=== PATIENT | female | born 1990 | race Caucasian/White ===

== ENCOUNTER → 2018-11-28 09:52 | Outpatient (CLI) | payer OTHER, SELFPAY ==
[2018-11-21 08:47] VITALS: BMI 24.8
[2018-11-28 10:28] LABS: Cholesterol 170 mg/dL (200); High Density Lipoprotein 64 mg/dL; Triglycerides 51 mg/dL; Very Low Density Lipoprotein 10 mg/dL (5-40)
[2018-11-28 10:50] LABS: Progesterone Level 23.75 ng/mL (See Comment)
== END ==
PROVIDERS: Referring Provider Obstetrics & Gynecology; Visit Provider Obstetrics & Gynecology
DX: N97.9 Female infertility, unspecified (principal); Z13.220 Encounter for screening for lipoid disorders
CPT/HCPCS: 36415; 80061; 84144

== ENCOUNTER → 2018-12-17 14:41 | Outpatient (CLI) | payer OTHER, SELFPAY ==
[2018-11-21 08:47] VITALS: BMI 24.8
--- NOTE | 2018-12-17 15:00 | RAD_ITS ---
STUDY: HYSTEROSALPINGOGRAM. REASON FOR EXAM: Female, 28 years old. Infertility. TECHNIQUE: A hysterosalpingogram was performed by the gynecology. Imaging was obtained. 3 images were obtained. COMPARISON: None. FINDINGS: There is visualization of the right horn of the uterus. The left horn is not visualized. The right fallopian tube is patent with spill. RAD/Salpingogram IMPRESSION: Patency of the right fallopian tube. Only the right horn of the uterus was opacified. Electronically Signed: David Davidson, at 15:45 EST , Service support ,
--- NOTE | 2018-12-22 22:30 | OP.PCM_ITS ---
Problem List (1) PCOS (polycystic ovarian syndrome) Status: Acute Comment: information and counseling reviewed, recommend lipid panel. nl insulin and glucose fasting. recommend day 21 progesterone and try femara next cycle if no conception. provera withdrawl PRN for menses. 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 Speculum was placed in the vagina and the cervix prepped with Betadine and the HSG catheter was easily introduced into the uterus and speculum removed. Radiologist was brought in and while pushing radiopaque dye into the uterus via the HSG catheter the radiologist took multiple images and views and confirmed right tubal patency seen. see findings for specific defects seen. All instruments removed from the vagina and the uterus without complication. Patient tolerated the procedure well. in comparison with the ultrasound there are bilateral ovaries presents so possible uterine cavity abnormality suspected. immediate referral to RGI recommended - Admit VTE Documentation VTE Present on Admission: No Multi Select Codes - Urinary/Genital Urinary/Genital CPT Codes: 03588 HSG/SIS
== END ==
PROVIDERS: Referring Provider Obstetrics & Gynecology; Visit Provider Obstetrics & Gynecology
DX: N97.9 Female infertility, unspecified (principal)
CPT/HCPCS: 58340; 74740; Q9965

== ENCOUNTER → 2019-01-02 14:50 | Outpatient (CLI) | payer OTHER, SELFPAY ==
[2018-11-21 08:47] VITALS: BMI 24.8
--- NOTE | 2019-01-02 14:52 | US_ITS ---
STUDY: RENAL ULTRASOUND - COMPLETE REASON FOR EXAM: Female, 28 years old. Evaluate for anatomic abnormality. TECHNIQUE: Ultrasound evaluation of the kidneys was performed with real-time and static heart-scale imaging. COMPARISON: None. FINDINGS: Aorta: Visualized portions of abdominal aorta are normal in diameter. IVC: Visualized portions appear patent. Right kidney: Measures 9.0 cm. Normal contour. Renal cortical thickness appears normal. No cysts. No masses, or hydronephrosis identified. A hyperechoic 2 mm focus may represent a small nonobstructing stone. Left kidney: Measures 9.0 cm. Normal contour. Renal cortical thickness appears normal. No cysts. No masses, stones, or hydronephrosis identified. Bladder: No intrinsic masses, stones, or abnormal dilatation noted. US/Kidney and Bladder IMPRESSION: Possible small nonobstructing right renal stone. Renal ultrasound is otherwise within normal limits. Electronically Signed: Dragan Montelongo, at 19:25 EST Tel , Service support ,
== END ==
PROVIDERS: Referring Provider Obstetrics & Gynecology Reproductive Endocrinology; Visit Provider Obstetrics & Gynecology Reproductive Endocrinology
DX: Q51.4 Unicornate uterus (principal)
CPT/HCPCS: 76770

== ENCOUNTER → 2019-10-06 | Outpatient (CLI) | payer OTHER, SELFPAY ==
[2018-11-21 08:47] VITALS: BMI 24.8
[2019-10-06 08:54] LABS: Estradiol 310.7 pg/mL
[2019-10-06 08:56] LABS: Progesterone Level 56.71 ng/mL (See Comment)
== END | disposition home or self-care (01) ==
LOC: PAVLAB 08:24
PROVIDERS: Referring Provider Obstetrics & Gynecology; Visit Provider Obstetrics & Gynecology
DX: E28.9 Ovarian dysfunction, unspecified (principal)
CPT/HCPCS: 36415; 82670; 84144

== ENCOUNTER → 2019-10-10 | Outpatient (CLI) | payer OTHER, SELFPAY ==
[2018-11-21 08:47] VITALS: BMI 24.8
[2019-10-10 08:54] LABS: hCG Titer Quant., Serum 35 mIU/mL (1-3)
[2019-10-10 09:29] LABS: Progesterone Level 39.79 ng/mL (See Comment)
== END | disposition home or self-care (01) ==
LOC: PAVLAB 08:21
PROVIDERS: Referring Provider Obstetrics & Gynecology; Visit Provider Obstetrics & Gynecology
DX: Z32.00 Encounter for pregnancy test, result unknown (principal)
CPT/HCPCS: 36415; 84144; 84702

== ENCOUNTER → 2019-10-13 | Outpatient (CLI) | payer OTHER, SELFPAY ==
[2018-11-21 08:47] VITALS: BMI 24.8
[2019-10-13 09:40] LABS: hCG Titer Quant., Serum 30 mIU/mL (1-3)
[2019-10-13 09:46] LABS: Progesterone Level 53.74 ng/mL (See Comment)
== END | disposition home or self-care (01) ==
LOC: PAVLAB 08:23
PROVIDERS: Referring Provider Obstetrics & Gynecology; Visit Provider Obstetrics & Gynecology
DX: Z32.00 Encounter for pregnancy test, result unknown (principal)
CPT/HCPCS: 36415; 84144; 84702

== ENCOUNTER → 2019-10-22 | Outpatient (CLI) | payer OTHER, SELFPAY ==
[2018-11-21 08:47] VITALS: BMI 24.8
--- NOTE | 2019-10-22 10:54 | US_ITS ---
STUDY: ULTRASOUND OF THE FEMALE PELVIS - COMPLETE REASON FOR EXAM: Female, 29 years old. Ovarian dysfunction- patient is currently doing IVF LMP: 10/18/2019. TECHNIQUE: Transabdominal and Transvaginal TECHNICAL QUALITY: Adequate. COMPARISON: None. FINDINGS: The uterus is retroverted and is in a midline position. The uterus measures 6.3 cm x 4.7 cm x 3.4 cm. Normal uterine cervix. The endometrium measures 5.0 mm in thickness, and is fluid distended. There is no demonstrated endometrial mass. There is no demonstrated myometrial mass. I.U.D. - The patient does not have an I.U.D. The right ovary is visualized. The right ovary measures 4.4 cm x 2.4 cm x 2.1 cm. Multiple small follicles are seen. There is no visualized right adnexal mass or complex lesion. There is normal arterial and normal venous vascularity. The left ovary is visualized. The left ovary measures 4.3 cm x 2.5 cm x 2.2 cm. There is no left ovarian cyst or ovarian mass. There is no visualized left adnexal mass or complex lesion. There is normal arterial and normal venous vascularity. There is no fluid in the cul-de-sac. The pre void volume of the bladder was 272 ml. Polycystic ovary disease: No. US/Transvaginal Non- IMPRESSION: Small amount of the fundal endometrial fluid. Multiple small follicles in the right ovary. Electronically Signed: David Davidson, at 13:05 EDT , Service support ,
--- NOTE | 2019-10-22 10:54 | US_ITS ---
STUDY: ULTRASOUND OF THE FEMALE PELVIS - COMPLETE REASON FOR EXAM: Female, 29 years old. Ovarian dysfunction- patient is currently doing IVF LMP: 10/18/2019. TECHNIQUE: Transabdominal and Transvaginal TECHNICAL QUALITY: Adequate. COMPARISON: None. FINDINGS: The uterus is retroverted and is in a midline position. The uterus measures 6.3 cm x 4.7 cm x 3.4 cm. Normal uterine cervix. The endometrium measures 5.0 mm in thickness, and is fluid distended. There is no demonstrated endometrial mass. There is no demonstrated myometrial mass. I.U.D. - The patient does not have an I.U.D. The right ovary is visualized. The right ovary measures 4.4 cm x 2.4 cm x 2.1 cm. Multiple small follicles are seen. There is no visualized right adnexal mass or complex lesion. There is normal arterial and normal venous vascularity. The left ovary is visualized. The left ovary measures 4.3 cm x 2.5 cm x 2.2 cm. There is no left ovarian cyst or ovarian mass. There is no visualized left adnexal mass or complex lesion. There is normal arterial and normal venous vascularity. There is no fluid in the cul-de-sac. The pre void volume of the bladder was 272 ml. Polycystic ovary disease: No. US/Pelvic (Non ) IMPRESSION: Small amount of the fundal endometrial fluid. Multiple small follicles in the right ovary. Electronically Signed: David Davidson, at 13:05 EDT , Service support ,
[2019-10-22 12:38] LABS: Progesterone Level 0.28 ng/mL (See Comment)
[2019-10-22 12:45] LABS: hCG Titer Quant., Serum < 1 mIU/mL (1-3)
[2019-10-22 12:49] LABS: Estradiol 75.2 pg/mL; Follicle Stimulating Hormone 5.9 mIU/mL; Luteinizing Hormone 7.8 mIU/mL; Thyroid Stim Hormone (TSH) 0.94 uIU/mL (0.358-3.74)
== END | disposition home or self-care (01) ==
PROVIDERS: Referring Provider Obstetrics & Gynecology; Visit Provider Obstetrics & Gynecology
DX: E28.9 Ovarian dysfunction, unspecified (principal); Z31.9 Encounter for procreative management, unspecified
CPT/HCPCS: 36415; 76830; 76856; 82670; 83001; 83002; 84144; 84443; 84702

== ENCOUNTER → 2019-10-27 | Outpatient (CLI) | payer OTHER, SELFPAY ==
[2018-11-21 08:47] VITALS: BMI 24.8
--- NOTE | 2019-10-27 09:35 | US_ITS ---
STUDY: ULTRASOUND OF THE FEMALE PELVIS - COMPLETE REASON FOR EXAM: Female, 29 years old. OVARIAN DYSFUNCTION, PATIENT CURRENTLY UNDER GOING IVF LMP: 10/18/2019. TECHNIQUE: Transvaginal TECHNICAL QUALITY: Adequate. COMPARISON: Comparison is made with prior examination dated 10/22/2019. FINDINGS: The uterus is retroflexed and is tilted to the left side of the pelvis. The uterus measures 6.7 cm x 5 cm x 4.1 cm. There is a Nabothian cyst of the cervix. The endometrium measures 8.9 mm in thickness, and is heterogeneous (striated). Minimal amount of endometrial fluid. There is no demonstrated endometrial mass. There is no demonstrated myometrial mass. I.U.D. - The patient does not have an I.U.D. The right ovary is visualized. The right ovary measures 2.4 cm x 2.5 cm x 2.9 cm. Multiple small follicles are seen within the ovary. There is no visualized right adnexal mass or complex lesion. There is normal arterial and normal venous vascularity. The left ovary is visualized. The left ovary measures 3.9 cm x 2.8 cm x 2.6 cm. Multiple small follicles are seen within the ovary. There is no visualized left adnexal mass or complex lesion. There is normal arterial and normal venous vascularity. There is minimal fluid in the cul-de-sac. US/Transvaginal Non- IMPRESSION: Minimal amount of endometrial fluid as well as fluid in the cul-de-sac. Multiple follicles are seen in both ovaries. Electronically Signed: David Davidson, at 11:06 EDT , Service support ,
[2019-10-27 10:02] LABS: Estradiol 345.3 pg/mL; Progesterone Level 0.21 ng/mL (See Comment)
== END | disposition home or self-care (01) ==
LOC: OPUS 09:01
PROVIDERS: Referring Provider Obstetrics & Gynecology; Visit Provider Obstetrics & Gynecology
DX: E28.9 Ovarian dysfunction, unspecified (principal)
CPT/HCPCS: 36415; 76830; 82670; 83002; 84144

== ENCOUNTER → 2019-11-07 | Outpatient (CLI) | payer OTHER, SELFPAY ==
[2018-11-21 08:47] VITALS: BMI 24.8
== END | disposition home or self-care (01) ==
LOC: PAVLAB 08:50
PROVIDERS: Nurse Practitioner Women's Health; Referring Provider Obstetrics & Gynecology; Visit Provider Obstetrics & Gynecology
DX: E28.9 Ovarian dysfunction, unspecified (principal)
CPT/HCPCS: 36415; 82670; 84144

== ENCOUNTER → 2019-11-12 | Outpatient (CLI) | payer OTHER, SELFPAY ==
[2018-11-21 08:47] VITALS: BMI 24.8
[2019-11-12 09:56] LABS: hCG Titer Quant., Serum < 1 mIU/mL (1-3)
[2019-11-12 10:56] LABS: Progesterone Level 53.97 ng/mL (See Comment)
== END | disposition home or self-care (01) ==
LOC: PAVLAB 09:20
PROVIDERS: Nurse Practitioner Women's Health; Referring Provider Obstetrics & Gynecology; Visit Provider Obstetrics & Gynecology
DX: Z32.00 Encounter for pregnancy test, result unknown (principal)
CPT/HCPCS: 36415; 84144; 84702

== ENCOUNTER → 2019-11-20 | Outpatient (CLI) | payer OTHER, SELFPAY ==
[2018-11-21 08:47] VITALS: BMI 24.8
--- NOTE | 2019-11-20 07:53 | US_ITS ---
STUDY: ULTRASOUND TRANSVAGINAL CLINICAL: Female, 29 years old. ovarian dysfunction TECHNIQUE: Transvaginal COMPARISON: 10/27/2019 FINDINGS: Normal uterine size measuring 6.2 x 4.5 x 3.3 cm in maximal craniocaudal dimension. There are no myometrial masses. Normal endometrial thickness measuring 5 mm. Small amount of endometrial fluid.. Normal uterine cervix. Normal right ovary, measuring 3.6 x 2.8 x 1.9 cm. There are multiple follicles without a dominant cyst. Normal left ovary, measuring 4.4 x 3.7 x 1.8 cm. There are multiple follicles without a dominant cyst. There is no free fluid in the pelvis. Polycystic ovary disease: No. US/Transvaginal Non- IMPRESSION: Small amount of endometrial fluid. Electronically Signed: Josep Sánchez MD at 9:02 EDT Tel , Service support ,
[2019-11-20 08:47] LABS: Estradiol 27.1 pg/mL; Luteinizing Hormone 9.3 mIU/mL
[2019-11-20 08:49] LABS: hCG Titer Quant., Serum < 1 mIU/mL (1-3)
[2019-11-20 09:50] LABS: Progesterone Level 0.81 ng/mL (See Comment)
== END | disposition home or self-care (01) ==
PROVIDERS: Referring Provider Obstetrics & Gynecology; Visit Provider Obstetrics & Gynecology
DX: E28.9 Ovarian dysfunction, unspecified (principal); Z13.29 Encounter for screening for other suspected endocrine disorder
CPT/HCPCS: 36415; 76830; 82670; 83001; 83002; 84144; 84443; 84702

== ENCOUNTER → 2019-11-27 | Outpatient (CLI) | payer OTHER, SELFPAY ==
[2018-11-21 08:47] VITALS: BMI 24.8
[2019-11-21 14:46] VITALS: BMI 24.8
--- NOTE | 2019-11-27 08:13 | US_ITS ---
STUDY: ULTRASOUND OF THE FEMALE PELVIS - COMPLETE REASON FOR EXAM: Female, 29 years old. Ovarian dysfunction LMP: 11/18/2019. TECHNIQUE: Transvaginal TECHNICAL QUALITY: Adequate. COMPARISON: Comparison is made with prior study dated 11/20/2019. FINDINGS: The uterus is retroverted and is in a midline position. The uterus measures 7.2 cm x 4.8 cm x 3.5 cm. Normal uterine cervix. The endometrium measures 10 mm in thickness, and is fluid distended. There is no demonstrated endometrial mass. There is no demonstrated myometrial mass. I.U.D. - The patient does not have an I.U.D. The right ovary is visualized. The right ovary measures 4.3 cm x 2.4 cm x 2.4 cm. There is no right ovarian cyst or ovarian mass. There is no visualized right adnexal mass or complex lesion. There is normal arterial and normal venous vascularity. The left ovary is visualized. The left ovary measures 3.5 cm x 2.8 cm x 2.1 cm. There is no left ovarian cyst or ovarian mass. There is no visualized left adnexal mass or complex lesion. There is normal arterial and normal venous vascularity. There is no fluid in the cul-de-sac. US/Transvaginal Non- IMPRESSION: Small amount of fluid is seen within the endometrium. Electronically Signed: David Davidson, at 9:55 EDT , Service support ,
[2019-11-27 10:13] LABS: Estradiol 299.4 pg/mL; Follicle Stimulating Hormone 4.5 mIU/mL; Luteinizing Hormone 8.5 mIU/mL; Progesterone Level 0.22 ng/mL (See Comment)
== END | disposition home or self-care (01) ==
PROVIDERS: Referring Provider Obstetrics & Gynecology; Visit Provider Obstetrics & Gynecology
DX: E28.2 Polycystic ovarian syndrome (principal); E28.9 Ovarian dysfunction, unspecified
CPT/HCPCS: 36415; 76830; 82670; 83001; 83002; 84144

== ENCOUNTER → 2019-12-02 | Outpatient (CLI) | payer OTHER, SELFPAY ==
[2019-11-21 14:46] VITALS: BMI 24.8
--- NOTE | 2019-12-02 07:53 | US_ITS ---
STUDY: ULTRASOUND OF THE FEMALE PELVIS - COMPLETE REASON FOR EXAM: Female, 29 years old. OVARIAN DYSFUNCTION -- IVF TREATMENT -- EVALUATING ENDO LMP: 11/18/2019. TECHNIQUE: Transvaginal TECHNICAL QUALITY: Adequate. COMPARISON: Comparison is made with prior study dated 11/27/2019. FINDINGS: The uterus is retroverted and is in a midline position. The uterus measures 6.6 cm x 4.7 cm x 3.2 cm. Normal uterine cervix. The endometrium measures 9 mm in thickness, and is heterogeneous (striated). There is no demonstrated endometrial mass. There is no demonstrated myometrial mass. I.U.D. - The patient does not have an I.U.D. The right ovary is visualized. The right ovary measures 3.1 cm x 3.3 cm x 2.1 cm. There is no right ovarian cyst or ovarian mass. There is no visualized right adnexal mass or complex lesion. There is normal arterial and normal venous vascularity. The left ovary is visualized. The left ovary measures 4 cm x 4.1 cm x 1.7 cm. A dominant follicle is seen within it measuring 1.4 cm x 1.4 cm x 1.0 cm. There is no visualized left adnexal mass or complex lesion. There is normal arterial and normal venous vascularity. Mild to moderate degree of fluid in the cul-de-sac. US/Transvaginal Non- IMPRESSION: Dominant follicle in the left ovary measuring 1.4 cm x 1.4 cm x 1 cm. Electronically Signed: David Davidson, at 8:52 EDT , Service support ,
== END | disposition home or self-care (01) ==
LOC: OPUS 07:53
PROVIDERS: Referring Provider Obstetrics & Gynecology; Visit Provider Obstetrics & Gynecology
DX: E28.9 Ovarian dysfunction, unspecified (principal)
CPT/HCPCS: 76830

== ENCOUNTER → 2019-12-10 | Outpatient (CLI) | payer OTHER, SELFPAY ==
[2019-11-21 14:46] VITALS: BMI 24.8
[2019-12-10 08:47] LABS: Estradiol 215.1 pg/mL
[2019-12-10 08:56] LABS: Progesterone Level 36.28 ng/mL (See Comment)
== END | disposition home or self-care (01) ==
LOC: PAVLAB 08:02
PROVIDERS: Referring Provider Obstetrics & Gynecology; Visit Provider Obstetrics & Gynecology
DX: E28.9 Ovarian dysfunction, unspecified (principal); Z32.00 Encounter for pregnancy test, result unknown
CPT/HCPCS: 36415; 82670; 84144

== ENCOUNTER → 2019-12-15 08:29 | Outpatient (CLI) | payer OTHER, SELFPAY ==
[2019-11-21 14:46] VITALS: BMI 24.8
[2019-12-15 09:24] LABS: hCG Titer Quant., Serum 88 mIU/mL (1-3)
[2019-12-15 09:58] LABS: Progesterone Level 28.86 ng/mL (See Comment)
== END ==
PROVIDERS: Referring Provider Obstetrics & Gynecology; Visit Provider Obstetrics & Gynecology
DX: E28.9 Ovarian dysfunction, unspecified (principal); Z32.00 Encounter for pregnancy test, result unknown
CPT/HCPCS: 36415; 84144; 84702

== ENCOUNTER → 2019-12-17 07:50 | Outpatient (CLI) | payer OTHER, SELFPAY ==
[2019-11-21 14:46] VITALS: BMI 24.8
[2019-12-17 08:31] LABS: hCG Titer Quant., Serum 127 mIU/mL (1-3)
[2019-12-17 08:37] LABS: Estradiol 218.9 pg/mL; Thyroid Stim Hormone (TSH) 1.86 uIU/mL (0.358-3.74)
[2019-12-17 09:38] LABS: Progesterone Level 38.62 ng/mL (See Comment)
== END ==
PROVIDERS: Referring Provider Obstetrics & Gynecology; Visit Provider Obstetrics & Gynecology
DX: N91.2 Amenorrhea, unspecified (principal); E28.2 Polycystic ovarian syndrome
CPT/HCPCS: 36415; 82670; 84144; 84443; 84702

== ENCOUNTER → 2019-12-19 08:13 | Outpatient (CLI) | payer OTHER, SELFPAY ==
[2019-11-21 14:46] VITALS: BMI 24.8
[2019-12-19 09:10] LABS: Estradiol 209.8 pg/mL; hCG Titer Quant., Serum 141 mIU/mL (1-3)
[2019-12-19 09:37] LABS: Progesterone Level 39.45 ng/mL (See Comment)
== END ==
PROVIDERS: Referring Provider Obstetrics & Gynecology; Visit Provider Obstetrics & Gynecology
DX: E28.2 Polycystic ovarian syndrome (principal)
CPT/HCPCS: 36415; 82670; 84144; 84702

== ENCOUNTER → 2019-12-19 18:06 | Outpatient (CLI) | payer OTHER, SELFPAY ==
[2019-11-21 14:46] VITALS: BMI 24.8
--- NOTE | 2019-12-19 18:08 | US_ITS ---
STUDY: FIRST TRIMESTER OBSTETRICAL ULTRASOUND REASON FOR EXAM: Female, 29 years old. Viability. Beta hCG level of 147 at doctor''s office. LMP: 12/02/2019 TECHNIQUE: Transvaginal TECHNICAL QUALITY: Adequate. PRIOR ULTRASOUND: None. FINDINGS: There is no demonstrated intrauterine gestational sac. The estimated gestation age (EGA) by LMP is 4 weeks, 3 days. The estimated date of delivery ([place]) by LMP is 08/24/2020. The uterus measures 6.6 x 4.4 x 3.6 cm the endometrium measures 8 mm in thickness and is hyperechoic.. There is no demonstrated uterine fibroid. The cervix is closed. The right ovary measures 2.3 x 1.8 x 2.1 cm. There is no right ovarian cyst. There is no visualized right adnexal mass or complex lesion. Normal vascularity on DOPPLER imaging. The left ovary measures 2.5 x 1.8 x 1.3 cm. There are multiple follicles of the left ovary without a dominant cyst. There is a paraovarian cyst measuring 1.4 x 1.0 x 0.9 cm. Normal vascularity on DOPPLER imaging. There is no fluid in the cul de sac. The urinary bladder demonstrates minimal internal debris. US/Transvaginal w/Preg US IMPRESSION: 1. No evidence of interuterine or ectopic . The possibility of a very early intrauterine cannot be ruled out on the current study. Follow-up with serial beta hCG and ultrasound recommended. 2. Left paraovarian cyst. The right ovary is unremarkable. Electronically Signed: Bulmaro Cook DO at 18:59 EST Tel [phone], Service support ,
== END ==
PROVIDERS: Referring Provider Obstetrics & Gynecology; Visit Provider Obstetrics & Gynecology
DX: Z36.89 Encounter for other specified antenatal screening (principal)
CPT/HCPCS: 76817

== ENCOUNTER → 2019-12-22 08:35 | Outpatient (CLI) | payer OTHER, SELFPAY ==
[2019-11-21 14:46] VITALS: BMI 24.8
[2019-12-22 09:30] LABS: Progesterone Level 12.56 ng/mL (See Comment)
[2019-12-22 09:32] LABS: hCG Titer Quant., Serum 35 mIU/mL (1-3)
== END ==
PROVIDERS: Referring Provider Obstetrics & Gynecology; Visit Provider Obstetrics & Gynecology
DX: E28.2 Polycystic ovarian syndrome (principal)
CPT/HCPCS: 36415; 84144; 84702

== ENCOUNTER → 2019-12-29 07:56 | Outpatient (CLI) | payer OTHER, SELFPAY ==
[2019-12-25 14:02] VITALS: BMI 23.0
--- NOTE | 2019-12-29 07:56 | US_ITS ---
STUDY: ULTRASOUND OF THE FEMALE PELVIS - COMPLETE REASON FOR EXAM: Female, 29 years old. Ovarian dysfunction LMP: 12/26/2019. TECHNIQUE: Transvaginal TECHNICAL QUALITY: Adequate. COMPARISON: Comparison is made with prior study dated 12/19/2019. FINDINGS: The uterus is retroverted and is in a midline position. The uterus measures 6.1 cm x 5.2 cm x 3.7 cm. Normal uterine cervix. The endometrium measures 3.7 mm in thickness, and is . There is no demonstrated endometrial mass. There is no demonstrated myometrial mass. I.U.D. - The patient does not have an I.U.D. The right ovary is visualized. The right ovary measures 2.2 cm x 2.6 cm x 2.6 cm. There is no right ovarian cyst or ovarian mass. There is no visualized right adnexal mass or complex lesion. There is normal arterial and normal venous vascularity. The left ovary is visualized. The left ovary measures 3.2 cm x 2.7 cm x 2.3 cm. There is no left ovarian cyst or ovarian mass. There is no visualized left adnexal mass or complex lesion. There is normal arterial and normal venous vascularity. There is no fluid in the cul-de-sac. US/Transvaginal Non- IMPRESSION: Normal female pelvis. Electronically Signed: David Davidson, at 9:02 EST , Service support ,
[2019-12-29 09:03] LABS: Estradiol 73.3 pg/mL; Follicle Stimulating Hormone 5.6 mIU/mL; Luteinizing Hormone 3.9 mIU/mL; Thyroid Stim Hormone (TSH) 0.77 uIU/mL (0.358-3.74)
[2019-12-29 09:08] LABS: hCG Titer Quant., Serum 2 mIU/mL (1-3)
[2019-12-29 09:16] LABS: Progesterone Level 0.39 ng/mL (See Comment)
== END ==
PROVIDERS: Referring Provider Obstetrics & Gynecology; Visit Provider Obstetrics & Gynecology
DX: E28.9 Ovarian dysfunction, unspecified (principal); Z13.29 Encounter for screening for other suspected endocrine disorder
CPT/HCPCS: 36415; 76830; 82670; 83001; 83002; 84144; 84443; 84702

== ENCOUNTER → 2020-01-05 10:38 | Outpatient (CLI) | payer OTHER, SELFPAY ==
[2019-12-25 14:02] VITALS: BMI 23.0
--- NOTE | 2020-01-05 10:54 | US_ITS ---
INDICATION: infertility EXAMINATION: Ultrasound US Transvaginal Non-OB TECHNIQUE: Transvaginal (for optimal evaluation of the adnexa) pelvic ultrasound was performed. Grayscale, spectral waveform, and color flow Doppler evaluation of the adnexa. COMPARISON: Previous transvaginal pelvic ultrasound obtained on 12/29/2019 FINDINGS: UTERUS: Retroverted. The uterus measures 6.7 x 4.4 x 3.9 cm. There is no uterine mass. The endometrial stripe measures 4.6 in AP diameter which is within normal limits. RIGHT OVARY: Measures 2.2 x 2.4 x 2.4 cm in size. Non-enlarged, normal echogenicity. There is normal arterial inflow and venous outflow present in the right ovary. LEFT OVARY: Measures 4.0 x 2.4 x 2.0 cm in size and contains a physiologic cyst measuring 1.5 x 1.0 x 1.1 cm in size.. Non-enlarged, normal echogenicity. There is normal arterial inflow and venous outflow present in the left ovary. FREE FLUID: None. US/Transvaginal Non- IMPRESSION: Normal transvaginal pelvic ultrasound Electronically Signed: Vineet Rodriguez, at 16:06 EST Tel , Service support ,
[2020-01-05 11:31] LABS: Estradiol 243.2 pg/mL; Luteinizing Hormone 6.3 mIU/mL
[2020-01-05 12:28] LABS: Progesterone Level < 0.21 ng/mL (See Comment)
== END ==
PROVIDERS: Referring Provider Obstetrics & Gynecology; Visit Provider Obstetrics & Gynecology
DX: E28.9 Ovarian dysfunction, unspecified (principal)
CPT/HCPCS: 36415; 76830; 82670; 83002; 84144

== ENCOUNTER 2020-01-07 13:21 | Outpatient (RCR) | payer OTHER, SELFPAY ==
[2019-11-21 14:46] VITALS: BMI 24.8
== END 2020-01-12 23:59 ==
LOC: EMPH 13:21
PROVIDERS: Referring Provider Family Medicine Geriatric Medicine; Visit Provider Family Medicine Geriatric Medicine
DX: Z03.818 Encounter for observation for suspected exposure to other biological agents ruled out (principal)
CPT/HCPCS: 87426

== ENCOUNTER → 2020-01-09 08:52 | Outpatient (CLI) | payer OTHER, SELFPAY ==
[2019-12-25 14:02] VITALS: BMI 23.0
--- NOTE | 2020-01-09 08:54 | US_ITS ---
STUDY: ULTRASOUND TRANSVAGINAL CLINICAL: Female, 29 years old. INFERTILITY TECHNIQUE: Transvaginal COMPARISON: 01/05/2020 FINDINGS: Normal uterine size measuring 7.3 cm in maximal craniocaudal dimension. There are no myometrial masses. Uterus is retroverted Normal endometrial thickness measuring 10-12 mm. There are no endometrial masses, and there is no fluid in the endometrial cavity. Normal uterine cervix. Normal right ovary, measuring 3.5 x 2.7 x 2.5 cm. There are multiple follicles without a dominant cyst. Normal left ovary, measuring 3.9 x 2.7 x 1.7 cm. There are multiple follicles with a dominant 1.5 cm cyst. There is no free fluid in the pelvis. Polycystic ovary disease: No. US/Transvaginal Non- IMPRESSION: No suspicious sonographic findings, simple left ovarian cyst needs no specific follow-up Electronically Signed: Vance Gallegos MD at 12:31 EST , Service support ,
== END ==
PROVIDERS: Referring Provider Obstetrics & Gynecology; Visit Provider Obstetrics & Gynecology
DX: E28.9 Ovarian dysfunction, unspecified (principal)
CPT/HCPCS: 76830

== ENCOUNTER → 2020-01-19 08:33 | Outpatient (CLI) | payer OTHER, SELFPAY ==
[2019-12-25 14:02] VITALS: BMI 23.0
[2020-01-19 09:17] LABS: Estradiol 1210.7 pg/mL
== END ==
PROVIDERS: Referring Provider Obstetrics & Gynecology; Visit Provider Obstetrics & Gynecology
DX: E28.9 Ovarian dysfunction, unspecified (principal)
CPT/HCPCS: 36415; 82670; 84144

== ENCOUNTER → 2020-01-23 07:52 | Outpatient (CLI) | payer OTHER, SELFPAY ==
[2019-12-25 14:02] VITALS: BMI 23.0
[2020-01-23 08:45] LABS: hCG Titer Quant., Serum 229 mIU/mL (1-3)
[2020-01-23 10:10] LABS: Progesterone Level 34.88 ng/mL (See Comment)
== END ==
PROVIDERS: Referring Provider Obstetrics & Gynecology; Visit Provider Obstetrics & Gynecology
DX: Z32.00 Encounter for pregnancy test, result unknown (principal)
CPT/HCPCS: 36415; 84144; 84702

== ENCOUNTER → 2020-01-25 07:46 | Outpatient (CLI) | payer OTHER, SELFPAY ==
[2019-12-25 14:02] VITALS: BMI 23.0
[2020-01-25 08:36] LABS: Estradiol 454.2 pg/mL; Thyroid Stim Hormone (TSH) 2.88 uIU/mL (0.358-3.74)
[2020-01-25 08:45] LABS: hCG Titer Quant., Serum 404 mIU/mL (1-3)
== END ==
PROVIDERS: Referring Provider Obstetrics & Gynecology; Visit Provider Obstetrics & Gynecology
DX: Z32.01 Encounter for pregnancy test, result positive (principal)
CPT/HCPCS: 36415; 82670; 84144; 84443; 84702

== ENCOUNTER → 2020-01-27 08:33 | Outpatient (CLI) | payer OTHER, SELFPAY ==
[2019-12-25 14:02] VITALS: BMI 23.0
[2020-01-27 09:08] LABS: hCG Titer Quant., Serum 753 mIU/mL (1-3)
== END ==
PROVIDERS: Referring Provider Obstetrics & Gynecology; Visit Provider Obstetrics & Gynecology
DX: O20.0 Threatened abortion (principal)
CPT/HCPCS: 36415; 84702

== ENCOUNTER → 2020-01-29 11:28 | Outpatient (CLI) | payer OTHER, SELFPAY ==
[2019-12-25 14:02] VITALS: BMI 23.0
[2020-01-29 12:31] LABS: hCG Titer Quant., Serum 1331 mIU/mL (1-3)
== END ==
PROVIDERS: Referring Provider Obstetrics & Gynecology; Visit Provider Obstetrics & Gynecology
DX: O20.0 Threatened abortion (principal)
CPT/HCPCS: 36415; 84702

== ENCOUNTER → 2020-02-02 07:58 | Outpatient (CLI) | payer OTHER, SELFPAY ==
[2019-12-25 14:02] VITALS: BMI 23.0
--- NOTE | 2020-02-02 08:23 | US_ITS ---
STUDY: FIRST TRIMESTER OBSTETRICAL ULTRASOUND (TWINS) REASON FOR EXAM: Female, 29 years old. LMP: IVF -VIABILITY- TWO EMBRYOS TRANSFERRED TECHNIQUE: Transvaginal TECHNICAL QUALITY: Adequate. COMPARISON: None. FINDINGS: There are two demonstrated intrauterine gestational sacs. The amniotic membrane cannot be visualized. The estimated gestation age (EGA) by LMP is 5 weeks, 3 days. The estimated date of delivery ([place]) by LMP is 10/01/2020. BABY A The mean sac diameter (MSD) measure 4 mm, indicating an estimated gestational age (EGA) of 5 weeks, 1 days. There is a visualized yolk sac. The yolk sac measures 2 mm. There is no demonstrated embryo ( pole). BABY B The mean sac diameter (MSD) measure 5 mm, indicating an estimated gestational age (EGA) of 5 weeks, 3 days. There is a visualized yolk sac. The yolk sac measures 1 mm. There is no demonstrated embryo ( pole). MATERNAL ANATOMY The uterus measures 8 cm x 5.1 cm x 4.4 cm cm. There is no demonstrated uterine fibroid. The cervix is closed. The right ovary measures 2.7 cm x 2 cm x 1.6 cm. There is no right ovarian cyst. There is no visualized right adnexal mass or complex lesion. The left ovary measures 2.8 cm x 1.5 cm x 1.5 cm. There is no left ovarian cyst. There is no visualized left adnexal mass or complex lesion. There is no fluid in the cul de sac. US/Transvaginal w/Preg US IMPRESSION: Twin intrauterine gestation with a mean gestational age of 5 weeks and 2 days. Electronically Signed: David Davidson, at 9:21 EST , Service support ,
[2020-02-02 09:21] LABS: Estradiol 1162.7 pg/mL
[2020-02-02 09:32] LABS: Progesterone Level 42.93 ng/mL (See Comment)
[2020-02-02 09:42] LABS: hCG Titer Quant., Serum 4754 mIU/mL (1-3)
== END ==
PROVIDERS: Referring Provider Obstetrics & Gynecology; Visit Provider Obstetrics & Gynecology
DX: O20.0 Threatened abortion (principal)
CPT/HCPCS: 36415; 76817; 82670; 84144; 84702

== ENCOUNTER → 2020-02-09 07:44 | Outpatient (CLI) | payer OTHER, SELFPAY ==
[2019-12-25 14:02] VITALS: BMI 23.0
--- NOTE | 2020-02-09 08:41 | US_ITS ---
STUDY: FIRST TRIMESTER OBSTETRICAL ULTRASOUND (TWINS) REASON FOR EXAM: Female, 29 years old. LMP: viability- twins IVF TECHNIQUE: Transabdominal TECHNICAL QUALITY: Adequate. COMPARISON: None. FINDINGS: There are two demonstrated intrauterine gestational sacs. The amniotic membrane cannot be visualized. The estimated gestation age (EGA) by LMP is 6 weeks, 3 days. The estimated date of delivery ([place]) by LMP is 10/01/2020. BABY A The mean sac diameter (MSD) measure 1.1 cm, indicating an estimated gestational age (EGA) of 5 weeks, 6 days. There is a visualized yolk sac. The yolk sac measures 3 mm. There is visualization of an embryo. The crown-rump length (CRL) measures 4 mm, indicating an estimated gestational age (EGA) of 6 weeks, 1 days. The estimated gestation age (EGA) by US is 6 weeks, 0 days. The estimated date of delivery ([place]) by US is 10/04/2020. There is demonstrated cardiac activity with a heart rate 117 bpm. BABY B The mean sac diameter (MSD) measure 1.4 cm, indicating an estimated gestational age (EGA) of 6 weeks, 2 days. There is a visualized yolk sac. The yolk sac measures 2 mm. There is visualization of an embryo. The crown-rump length (CRL) measures 5 mm, indicating an estimated gestational age (EGA) of 6 weeks, 2 days. The estimated gestation age (EGA) by US is 6 weeks, 2 days. The estimated date of delivery ([place]) by US is 10/01/2020. There is demonstrated cardiac activity with a heart rate 120 bpm. . US/Transvaginal w/Preg US IMPRESSION: Viable intrauterine twin gestation approximately 6-7 weeks gestational age No significant abnormality Electronically Signed: Solo Fuller MD at 17:12 EST , Service support ,
[2020-02-09 09:11] LABS: Estradiol 1419.3 pg/mL; Thyroid Stim Hormone (TSH) 1.37 uIU/mL (0.358-3.74)
[2020-02-09 09:19] LABS: hCG Titer Quant., Serum 37463 mIU/mL (1-3)
[2020-02-09 09:34] LABS: Progesterone Level 45.66 ng/mL (See Comment)
== END ==
PROVIDERS: Referring Provider Obstetrics & Gynecology; Visit Provider Obstetrics & Gynecology
DX: O09.90 Supervision of high risk pregnancy, unspecified, unspecified trimester (principal); Z78.9 Other specified health status; Z3A.00 Weeks of gestation of pregnancy not specified
CPT/HCPCS: 36415; 76817; 82670; 84144; 84443; 84702

== ENCOUNTER 2020-02-11 14:27 | Outpatient (RCR) | payer OTHER, SELFPAY ==
[2019-12-25 14:02] VITALS: BMI 23.0
== END 2020-02-12 23:59 ==
LOC: EMPH 14:27
PROVIDERS: Referring Provider Family Medicine Geriatric Medicine; Visit Provider Family Medicine Geriatric Medicine
DX: Z03.818 Encounter for observation for suspected exposure to other biological agents ruled out (principal)
CPT/HCPCS: 87426

== ENCOUNTER → 2020-03-12 09:44 | Outpatient (CLI) | payer OTHER, SELFPAY ==
[2020-02-27 13:15] VITALS: BMI 23.4
[2020-03-12 09:59] LABS: Absolute Lymphocyte Count 4.33 X10^3/uL (0.83-4.51); Absolute Neutrophil Count 8.9 X10^3/uL (2.0-7.7); Basophil% 0.7 % (0-1); Eosinophil# 0.21 X10^3/uL; Eosinophils% 1.4 % (0-5); Hematocrit 37.6 % (37-47); Hemoglobin 12.7 g/dL (12.0-15.0); Lymphocyte # 4.33 X10^3/ul (4.0); Lymphocyte % 28.9 % (19-41); Mean Corp Hgb Conc 33.8 g/dL (32-36); Mean Corpuscular Hgb 32.3 pg (27.0-32.0); Mean Corpuscular Volume 95.7 fL (81-99); Mean Platelet Vol. 9.1 fl (6.2-12.0); Monocyte# 0.92 X10^3/uL; Monocyte% 6.1 % (0-10); NRBC Flagged by Analyzer 0 % (0-5); Neutrophil # 8.92 X10^3/uL (2.7-7.7); Neutrophil % 59.4 % (47-70); Platelet Count 349 K/mm3 (150-450); RBC Distribution Width CV 12.3 % (11.6-14.6); RBC Distribution Width SD 42.8 fl (35.1-43.9); Red Blood Count 3.93 M/mm3 (4.2-5.4)
[2020-03-17 15:20] LABS: HIV - WCH Non-Reactive (Nonreactive); Hepatitis B Surface Antigen Non-Reactive (Nonreactive); Hepatitis C Antibody Non-Reactive (Nonreactive); Rubella IgG Reactive (Nonreactive)
[2020-03-18 03:03] LABS: Rapid Plasmin Reagin (RPR) NONREACTIVE (NONREACTIVE)
[2020-08-24 13:34] LABS: Absolute Lymphocyte Count 2.61 X10^3/uL (0.83-4.51); Absolute Neutrophil Count 8.3 X10^3/uL (2.0-7.7); Basophil# 0.05 X10^3/uL; Basophil% 0.4 % (0-1); Eosinophils% 0.8 % (0-5); Hematocrit 33.8 % (37-47); Hemoglobin 10.7 g/dL (12.0-15.0); Lymphocyte # 2.61 X10^3/ul (0.83-4.51); Lymphocyte % 21.8 % (19-41); Mean Corp Hgb Conc 31.7 g/dL (32-36); Mean Corpuscular Hgb 29.5 pg (27.0-32.0); Mean Corpuscular Volume 93.1 fL (81-99); Mean Platelet Vol. 9.8 fl (6.2-12.0); Monocyte# 0.79 X10^3/uL; Monocyte% 6.6 % (0-10); NRBC Flagged by Analyzer 0 % (0-5); Neutrophil % 69.1 % (47-70); Platelet Count 312 K/mm3 (150-450); RBC Distribution Width CV 15.6 % (11.6-14.6); Red Blood Count 3.63 M/mm3 (4.2-5.4)
== END ==
PROVIDERS: Referring Provider Obstetrics & Gynecology; Visit Provider Obstetrics & Gynecology
DX: O09.90 Supervision of high risk pregnancy, unspecified, unspecified trimester (principal); Z3A.00 Weeks of gestation of pregnancy not specified
CPT/HCPCS: 36415; 85025; 86592; 86703; 86762; 86803; 86850; 86900; 86901; 87340

== ENCOUNTER 2020-04-14 08:10 | Outpatient (RCR) | payer OTHER, SELFPAY ==
[2020-02-10 10:19] VITALS: BMI 23.0
[2020-04-09 10:45] VITALS: BMI 24.8
== END 2020-05-12 23:59 ==
LOC: EMPH 08:10
PROVIDERS: Referring Provider Family Medicine Geriatric Medicine; Visit Provider Family Medicine Geriatric Medicine
DX: Z03.818 Encounter for observation for suspected exposure to other biological agents ruled out (principal)
CPT/HCPCS: 87426

== ENCOUNTER 2020-05-21 13:15 | Outpatient (RCR) | payer OTHER, SELFPAY ==
[2020-05-07 10:07] VITALS: BMI 26.2
== END 2020-06-11 23:59 ==
LOC: EMPH 13:15
PROVIDERS: Referring Provider Family Medicine Geriatric Medicine; Visit Provider Family Medicine Geriatric Medicine
DX: Z03.818 Encounter for observation for suspected exposure to other biological agents ruled out (principal)
CPT/HCPCS: 87426

== ENCOUNTER → 2020-05-31 11:16 | Outpatient (CLI) | payer OTHER, SELFPAY ==
[2020-05-07 10:07] VITALS: BMI 26.2
[2020-05-31 11:54] LABS: Thyroid Stim Hormone (TSH) 1.02 uIU/mL (0.358-3.74)
== END ==
PROVIDERS: Referring Provider Obstetrics & Gynecology; Visit Provider Obstetrics & Gynecology
DX: O09.90 Supervision of high risk pregnancy, unspecified, unspecified trimester (principal); Z3A.00 Weeks of gestation of pregnancy not specified
CPT/HCPCS: 36415; 84443

== ENCOUNTER → 2020-06-30 10:11 | Outpatient (CLI) | payer OTHER, SELFPAY ==
[2020-06-03 10:32] VITALS: BMI 27.1
[2020-06-30 10:22] LABS: Absolute Lymphocyte Count 2.61 X10^3/uL (0.83-4.51); Absolute Neutrophil Count 6.4 X10^3/uL (2.0-7.7); Basophil# 0.05 X10^3/uL; Basophil% 0.5 % (0-1); Hematocrit 31.1 % (37-47); Hemoglobin 10.2 g/dL (12.0-15.0); Lymphocyte # 2.61 X10^3/ul (0.83-4.51); Mean Corp Hgb Conc 32.8 g/dL (32-36); Mean Corpuscular Hgb 30.3 pg (27.0-32.0); Mean Corpuscular Volume 92.3 fL (81-99); Monocyte# 0.79 X10^3/uL; Monocyte% 7.9 % (0-10); NRBC Flagged by Analyzer 0 % (0-5); Neutrophil # 6.39 X10^3/uL (2.7-7.7); Neutrophil % 63.6 % (47-70); Platelet Count 327 K/mm3 (150-450); RBC Distribution Width CV 13.2 % (11.6-14.6); RBC Distribution Width SD 44.3 fl (35.1-43.9); Red Blood Count 3.37 M/mm3 (4.2-5.4)
[2020-06-30 11:09] LABS: Glucose Challenge Gest 1H 50g 141 mg/dL (70-140)
== END ==
PROVIDERS: Referring Provider Obstetrics & Gynecology; Visit Provider Obstetrics & Gynecology
DX: O09.90 Supervision of high risk pregnancy, unspecified, unspecified trimester (principal); Z3A.00 Weeks of gestation of pregnancy not specified
CPT/HCPCS: 36415; 82950; 85025

== ENCOUNTER → 2020-07-02 06:45 | Outpatient (CLI) | payer OTHER, SELFPAY ==
[2020-06-30 10:52] VITALS: BMI 26.9
[2020-07-02 06:58] LABS: Absolute Lymphocyte Count 2.99 X10^3/uL (0.83-4.51); Basophil# 0.04 X10^3/uL; Basophil% 0.4 % (0-1); Eosinophil# 0.13 X10^3/uL; Eosinophils% 1.3 % (0-5); Hematocrit 30.7 % (37-47); Hemoglobin 9.9 g/dL (12.0-15.0); Lymphocyte # 2.99 X10^3/ul (0.83-4.51); Lymphocyte % 28.9 % (19-41); Mean Corp Hgb Conc 32.2 g/dL (32-36); Mean Corpuscular Hgb 29.8 pg (27.0-32.0); Mean Corpuscular Volume 92.5 fL (81-99); Monocyte# 1.07 X10^3/uL; Monocyte% 10.4 % (0-10); NRBC Flagged by Analyzer 0 % (0-5); Neutrophil # 5.97 X10^3/uL (2.7-7.7); Neutrophil % 57.7 % (47-70); Platelet Count 310 K/mm3 (150-450); RBC Distribution Width CV 13.2 % (11.6-14.6); RBC Distribution Width SD 44.1 fl (35.1-43.9); Red Blood Count 3.32 M/mm3 (4.2-5.4); White Blood Count 10.3 K/mm3 (4.4-11.0)
[2020-07-02 07:09] LABS: Glucose GTT-Gestation. Fasting 79 mg/dL (<105)
[2020-07-02 08:45] LABS: Glucose GTT-Gestational 1 Hr 151 mg/dL (<190)
[2020-07-02 09:34] LABS: Glucose GTT-Gestational 2 Hr 124 mg/dL (<165)
[2020-07-02 10:58] LABS: Glucose GTT-Gestational 3 Hr 104 L (<145)
== END ==
PROVIDERS: Obstetrics & Gynecology; Referring Provider Obstetrics & Gynecology; Visit Provider Obstetrics & Gynecology
DX: O99.810 Abnormal glucose complicating pregnancy (principal); O99.012 Anemia complicating pregnancy, second trimester; Z3A.00 Weeks of gestation of pregnancy not specified
CPT/HCPCS: 36415; 82951; 82952; 85025

== ENCOUNTER → 2020-08-09 12:07 | Outpatient (CLI) | payer OTHER, SELFPAY ==
[2020-07-26 15:43] VITALS: BMI 26.9
[2020-08-09 11:46] VITALS: BMI 28.8
--- NOTE | 2020-08-09 12:07 | US_ITS ---
STUDY: OBSTETRICAL ULTRASOUND - BIOPHYSICAL PROFILE REASON FOR EXAM: Female, 29 years old dichorionic diamniotic twin LMP: 12/26/2019. PRIOR ULTRASOUND: Comparison is made with prior study dated 02/09/2020. TECHNIQUE: Transabdominal TECHNICAL QUALITY: Adequate. FINDINGS: Baby A: There is a single intrauterine fetus. The fetus is in a cephalic presentation. There is demonstrated cardiac activity with a heart rate of 121 bpm. There is a normal amniotic fluid volume. The largest amniotic fluid pocket measures 4.4 cm x 2.4 cm. The amniotic fluid index (TAHIRA) is 14.61 cm. The placenta is anterior in location and is not low lying. There are Grade 1 placental changes. Age by LMP: 32 weeks, 3 days. MIL[place] by LMP: 10/01/2020. age by prior US: 33 weeks, 6 days. MILTON by prior US: 09/21/2020. BIOPHYSICAL PROFILE: Breathing Movements (FBM): 2 Gross Body Movements (GBM): 2 Tone (FT): 2 Amniotic Fluid Volume (AFV): 2 TOTAL SCORE: 8 / 8 IMPRESSION: Normal biophysical profile of 8/8. Electronically Signed: David Davidson MD at 14:22 EDT , Service support , STUDY: OBSTETRICAL ULTRASOUND - BIOPHYSICAL PROFILE REASON FOR EXAM: Female, 29 years old dichorionic diamniotic twin LMP: 12/26/2019. PRIOR ULTRASOUND: Comparison is made with prior study dated 02/09/2020. TECHNIQUE: Transabdominal TECHNICAL QUALITY: Adequate. FINDINGS: Twin B: There is a twin intrauterine . The fetus is in a breech presentation. There is demonstrated cardiac activity with a heart rate of 137 bpm. There is a normal amniotic fluid volume. The largest amniotic fluid pocket measures 5 cm x 2.2 cm. The amniotic fluid index (TAHIRA) is 15.3 cm. The placenta is anterior in location and is not low lying. There are Grade 1 placental changes. Age by LMP: 32 weeks, 3 days. MILTON by LMP: 10/01/2020. age by prior US: 34 weeks, 3 days. MIL[place] by prior US: 09/17/2020. BIOPHYSICAL PROFILE: Breathing Movements (FBM): 2 Gross Body Movements (GBM): 2 Tone (FT): 2 Amniotic Fluid Volume (AFV): 2 TOTAL SCORE: US/Biophysical Prof W/O Non Stres IMPRESSION: Normal biophysical profile of 09/19. Electronically Signed: David Davidson MD at 14:24 EDT , Service support ,
== END ==
PROVIDERS: Referring Provider Obstetrics & Gynecology; Visit Provider Obstetrics & Gynecology
DX: O35.8XX0 Maternal care for other (suspected) fetal abnormality and damage, not applicable or unspecified (principal); O30.049 Twin pregnancy, dichorionic/diamniotic, unspecified trimester; Z3A.00 Weeks of gestation of pregnancy not specified
CPT/HCPCS: 76819

== ENCOUNTER → 2020-08-24 13:24 | Outpatient (CLI) | payer OTHER, SELFPAY ==
[2020-07-26 15:43] VITALS: BMI 26.9
[2020-08-24 13:00] VITALS: BMI 28.8
--- NOTE | 2020-08-24 13:36 | US_ITS ---
STUDY: OBSTETRICAL ULTRASOUND - BIOPHYSICAL PROFILE REASON FOR EXAM: Female, 30 years old pyelectasis -- well being - twins LMP: 12/26/2019. PRIOR ULTRASOUND: Comparison is made with prior study 08/09/2020. TECHNIQUE: Transabdominal TECHNICAL QUALITY: Adequate. FINDINGS: Baby A: There is a single intrauterine fetus. The fetus is in a cephalic presentation. There is demonstrated cardiac activity with a heart rate of 147 bpm. There is a normal amniotic fluid volume. The largest amniotic fluid pocket measures 2.3 cm. The amniotic fluid index (TAHIRA) is within normal limits. The placenta is anterior in location and is not low lying. There are Grade 1 placental changes. Age by LMP: 34 weeks, 4 days. MIL[place] by LMP: 10/01/2020. BIOPHYSICAL PROFILE: Breathing Movements (FBM): 2 Gross Body Movements (GBM): 2 Tone (FT): 2 Amniotic Fluid Volume (AFV): 2 TOTAL SCORE: 8 / 8 IMPRESSION: Normal biophysical profile of 8/8. Electronically Signed: David Davidson MD at 15:17 EDT , Service support , STUDY: OBSTETRICAL ULTRASOUND - BIOPHYSICAL PROFILE REASON FOR EXAM: Female, 30 years old pyelectasis -- well being - twins LMP: 12/26/2019. PRIOR ULTRASOUND: Comparison is made with prior study dated 08/09/2020. TECHNIQUE: Transabdominal TECHNICAL QUALITY: Adequate. FINDINGS: Baby B: There is a single intrauterine fetus. The fetus is in a breech presentation. There is demonstrated cardiac activity with a heart rate of 130 bpm. There is a normal amniotic fluid volume. The largest amniotic fluid pocket measures 4.1 cm. The amniotic fluid index (TAHIRA) is within normal limits. The placenta is anterior in location and is not low lying. There are Grade 1 placental changes. Age by LMP: 34 weeks, 4 days. MIL[place] by LMP: 10/01/2020. BIOPHYSICAL PROFILE: Breathing Movements (FBM): 2 Gross Body Movements (GBM): 2 Tone (FT): 2 Amniotic Fluid Volume (AFV): 2 TOTAL SCORE: US/Biophysical Prof W/O Non Stres IMPRESSION: Normal biophysical profile of 09/19. Electronically Signed: David Davidson MD at 15:19 EDT , Service support ,
== END ==
PROVIDERS: Referring Provider Obstetrics & Gynecology; Visit Provider Obstetrics & Gynecology
DX: O35.8XX0 Maternal care for other (suspected) fetal abnormality and damage, not applicable or unspecified (principal); Z3A.00 Weeks of gestation of pregnancy not specified
CPT/HCPCS: 76819

== ENCOUNTER → 2020-08-30 11:51 | Outpatient (CLI) | payer OTHER, SELFPAY ==
[2020-07-26 15:43] VITALS: BMI 26.9
[2020-08-24 13:00] VITALS: BMI 28.8
--- NOTE | 2020-08-30 11:53 | US_ITS ---
STUDY: OBSTETRICAL ULTRASOUND - BIOPHYSICAL PROFILE REASON FOR EXAM: Female, 30 years old pyelectasis LMP: 12/26/2019. PRIOR ULTRASOUND: None. TECHNIQUE: TECHNICAL QUALITY: Adequate. FINDINGS: Baby A: The fetus is in a cephalic presentation. There is demonstrated cardiac activity with a heart rate of 1. bpm. There is a normal amniotic fluid volume. The largest amniotic fluid pocket measures 4.9 cm x 2.6 cm. The amniotic fluid index (TAHIRA) is within normal limits. The placenta is anterior in location and is not low lying. There are Grade 0 placental changes. Age by LMP: 35 weeks, 3 days. MILTON by LMP: 10/01/2020. Gender: Male BIOPHYSICAL PROFILE: Breathing Movements (FBM): 2 Gross Body Movements (GBM): 2 Tone (FT): 2 Amniotic Fluid Volume (AFV): 2 TOTAL SCORE: 8 / 8 IMPRESSION: Normal biophysical profile of 8/8. Electronically Signed: David Davidson MD at 21:56 EDT , Service support , STUDY: OBSTETRICAL ULTRASOUND - BIOPHYSICAL PROFILE REASON FOR EXAM: Female, 30 years old pyelectasis LMP: 12/26/2019 PRIOR ULTRASOUND: Comparison is made with prior study dated 08/24/2020. TECHNIQUE: Transabdominal TECHNICAL QUALITY: Adequate. FINDINGS: Baby B: The fetus is in a breech presentation. There is demonstrated cardiac activity with a heart rate of 129 bpm. There is a normal amniotic fluid volume. The largest amniotic fluid pocket measures 5.7 cm x 2.2 cm. The amniotic fluid index (TAHIRA) is within normal limits. The placenta is anterior in location and is not low lying. There are Grade 1 placental changes. Age by LMP: 35 weeks, 3 days. MILTON by LMP: 10/01/2020. BIOPHYSICAL PROFILE: Breathing Movements (FBM): 2 Gross Body Movements (GBM): 2 Tone (FT): 2 Amniotic Fluid Volume (AFV): 2 TOTAL SCORE: US/Biophysical Prof W/O Non Stres IMPRESSION: Normal biophysical profile of 09/19. Electronically Signed: David Davidson MD at 21:57 EDT , Service support ,
== END ==
PROVIDERS: Referring Provider Obstetrics & Gynecology; Visit Provider Obstetrics & Gynecology
DX: O35.8XX0 Maternal care for other (suspected) fetal abnormality and damage, not applicable or unspecified (principal); Z3A.00 Weeks of gestation of pregnancy not specified
CPT/HCPCS: 76819

== ENCOUNTER → 2020-09-06 12:23 | Outpatient (CLI) | payer OTHER, SELFPAY ==
[2020-07-26 15:43] VITALS: BMI 26.9
[2020-08-30 13:24] VITALS: BMI 28.8
--- NOTE | 2020-09-06 12:25 | US_ITS ---
STUDY: OBSTETRICAL ULTRASOUND - BIOPHYSICAL PROFILE REASON FOR EXAM: Female, 30 years old dichorionic diamniotic twin LMP: 12/26/2019 PRIOR ULTRASOUND: Comparison is made with prior examination dated 08/30/2020. TECHNIQUE: Transabdominal TECHNICAL QUALITY: Adequate. FINDINGS: Twin A. The fetus is in a cephalic presentation. There is demonstrated cardiac activity with a heart rate of 153 bpm. There is a normal amniotic fluid volume. The largest amniotic fluid pocket measures 5.9 cm x 1.6 cm. The amniotic fluid index (TAHIRA) is within normal limits. The placenta is anterior in location and is not low lying. There are Grade 0 placental changes. Age by LMP: 36 weeks, 3 days. MILTON by LMP: 10/01/2020. BIOPHYSICAL PROFILE: Breathing Movements (FBM): 2 Gross Body Movements (GBM): 2 Tone (FT): 2 Amniotic Fluid Volume (AFV): 2 TOTAL SCORE: 8 / 8 IMPRESSION: Normal biophysical profile of 8/8. Electronically Signed: David Davidson MD at 15:20 EDT , Service support , STUDY: OBSTETRICAL ULTRASOUND - BIOPHYSICAL PROFILE REASON FOR EXAM: Female, 30 years old dichorionic diamniotic twin LMP: 12/26/2019. PRIOR ULTRASOUND: Comparison is made with prior study dated 08/30/2020. TECHNIQUE: Transabdominal TECHNICAL QUALITY: Adequate. FINDINGS: Twin B: The fetus is in a breech presentation. There is demonstrated cardiac activity with a heart rate of 129 bpm. There is a normal amniotic fluid volume. The largest amniotic fluid pocket measures 6.8 cm x 1.8 cm. The amniotic fluid index (TAHIRA) is within normal limits. The placenta is anterior in location and is not low lying. There are Grade 2 placental changes. Age by LMP: 36 weeks, 3 days. MILTON by LMP: 10/01/2020. BIOPHYSICAL PROFILE: Breathing Movements (FBM): 2 Gross Body Movements (GBM): 2 Tone (FT): 2 Amniotic Fluid Volume (AFV): 2 TOTAL SCORE: US/Biophysical Prof W/O Non Stres IMPRESSION: Normal biophysical profile of 09/19. Electronically Signed: David Davidson MD at 15:22 EDT , Service support ,
== END ==
PROVIDERS: Referring Provider Obstetrics & Gynecology; Visit Provider Obstetrics & Gynecology
DX: O35.8XX0 Maternal care for other (suspected) fetal abnormality and damage, not applicable or unspecified (principal); Z3A.36 36 weeks gestation of pregnancy
CPT/HCPCS: 76819; 87081

== ENCOUNTER 2020-09-07 14:50 | Inpatient (IN) | payer OTHER, SELFPAY ==
[2020-08-24 13:00] VITALS: BMI 28.8
[2020-09-06 13:52] VITALS: BMI 28.8
[2020-09-07] VITALS (22 sets, daily range): BP systolic 99–133; BP diastolic 57–83; PULSE 71–116; RESP 12–18; TEMP 36.9–37.6; O2SAT 85–100; BMI 29.0
--- NOTE | 2020-09-07 15:14 | HP.PCM.OB_ITS ---
HPI - General General Date of Admission: 09/07/20 HPI Narrative SALLY HALE, is a 30 F who presents to of labor with malpresentation of twins. A is vertex B is breech patient declines trial of labor. Patient was 3 to 4 cm in the office yesterday and is now 5 cm. she Has had upper abdominal pressure and discomfort no vaginal bleeding or loss of fluid. Maternal Data Information MILTON Calculator Estimated Delivery Date Method Current WG Current Estimate 10/01/20 Ultrasound #1 36w 4d # 2 PFSH PFSH Medical History (Updated 09/07/20 @ 15:[address] Tali Pelletier MD) ACL (anterior cruciate ligament) rupture PCOS (polycystic ovarian syndrome) Home Medications vitamin#30 30 mg iron-10 mg iron-folic acid 1 mg-omg3 capsule cap PO cap 11/21/18 [History Last Taken Unknown] levothyroxine 25 mcg tablet 25 mcg PO DAILY #30 tablet 05/27/20 [Rx Last Taken Unknown] omeprazole 40 mg capsule,delayed release 40 mg PO DAILY #30 cap 05/31/20 [Rx Last Taken Unknown] metoclopramide HCl 10 mg tablet 10 mg PO Q8H #90 tab 06/30/20 [Rx Last Taken Unknown] betamethasone acetate and sodium phos 6 mg/mL suspension for injection 12 mg IM DAILY 2 Days #4 ml 09/06/20 [Rx Last Taken Unknown] Allergy/AdvReac Type Severity Reaction Status Date / Time No Known Allergies Allergy Verified 09/07/20 15:41 Surgical History H/O laparoscopy Social History Smoking Status: Never smoker alcohol intake: never substance use type: does not use caffeine: Yes what type of physical activity do you participate in: walking seatbelt use: always do you feel safe at home: Yes additional social history: [place]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 [employer] Patient works at [employer] History 2 Elective abortions Hx Para 0 Spontaneous abortions 1 Hx # Term Pregnancies Ectopic pregnancies Hx # Pregnancies Multiple births # of living children Visit Details Expected Delivery Route/Plan ltcs with Labor Preferences- CB/BF classes: [] labor support person: [] labor intervention preferences: [] pain management options preferred: [] cut cord/dad catch: [] : [] PP control planned: [] discussed possible routes of delivery and associated risks: [] special requests: [] Plans flu vaccine: given tdap vaccine: [] rhogam: [] LARC form signed: 07/15/20 Problem list reviewed and updated with the most current plan of care details and appropriate orders placed. Relevant counseling for the gestational age provided. Continue routine care and follow up unless otherwise noted in visit notes/problem list details OB Flowsheet Initial Weight: Not Recorded Date -?-?-?-?-?-?-?-?-?-?-?-?- EGA Weight BP Urine Prot -?-?-?-?-?-?-?-?-?-?-?-?- Glucose FHR FuHt Pres Dilation -?-?-?-?-?-?-?-?-?-?-?-?- Effaced St Visit Note 02/27/20 -?-?-?-?-?-?-?-?-?-?-?-?- 9w 0d 128 lb 6 oz 120/80 -?-?-?-?-?-?-?-?-?-?-?-?- A 160 -?-?-?-?-?-?-?-?-?-?-?-?- B 160 A -?-?-?-?-?-?-?-?-?-?-?-?- B -?-?-?-?-?-?-?-?-?--?-?-?- A -?-?-?-?-?-?-?-?-?-?-?-?- B A SM twin IUP seen measuring within 1 day of each other heart tones seen -?-?-?-?-?-?-?-?-?-?-?-?- B 03/12/20 -?-?-?-?-?-?-?-?-?-?-?-?- 11w 0d 129 lb 108/86 Negative -?-?-?-?-?-?-?-?-?-?-?-?- Negative A 160 -?-?-?-?-?-?-?-?-?-?-?-?- B 160 A -?--?-?-?-?-?-?-?-?-?-?-?- B -?-?-?-?-?-?-?-?-?-?-?-?- A -?-?-?-?-?-?-?-?-?-?-?-?- B A SM_ no vb nomani ng co nausea and headaches -?-?-?-?-?-?-?-?-?-?-?-?- B 03/26/20 -?-?-?-?-?-?-?-?-?-?-?-?- 13w 0d 132 lb 112/82 -?-?-?-?-?-?-?-?-?-?-?-?- A 150 -?-?-?-?-?-?-?-?-?-?-?-?- B 150 A -?-?-?-?-?-?-?-?-?-?-?-?- B -?-?-?-?-?-?-?-?-?-?-?-?- A -?-?-?-?-?-?-?-?-?-?-?-?- B A SM- no vb sandi ng -?-?-?-?-?-?-?-?-?-?-?-?- B 04/09/20 -?-?-?-?-?-?-?-?-?-?-?-?- 15w 0d 136 lb 118/72 Negative -?-?-?-?-?-?-?-?-?-?-?-?- Negative A 145 -?-?-?-?-?-?-?-?-?-?-?-?- B 150 A -?-?-?-?-?-?-?-?-?-?-?-?- B -?-?-?-?-?-?-?-?-?-?-?-?- A -?-?-?-?-?-?-?-?-?-?-?-?- B A SM- no vb crampi ng -?-?-?-?-?-?-?-?-?-?-?-?- B 05/07/20 -?-?-?-?-?-?-?-?-?-?-?-?- 19w 0d 143 lb 120/70 Negative -?-?-?-?-?-?-?-?-?-?-?-?- Negative A 139 -?-?-?-?-?-?-?-?-?-?-?-?- B 136 A -?-?-?-?-?-?-?-?-?-?-?-?- B -?-?-?-?-?-?-?-?-?-?-?-?- A -?-?-?-?-?-?-?-?-?-?-?-?- B A GP - no cramping or bleeding. Scheduled for anatomy scan. Will have echo after this. Having 2 boys! -?-?-?-?-?-?-?-?-?-?-?-?- B 05/31/20 -?-?-?-?-?-?-?-?-?-?-?-?- 22w 3d 148 lb 6 oz 110/70 Nega tive -?-?-?-?-?-?-?-?-?-?-?-?- Negative A 150 -?-?-?-?-?-?-?-?-?-?-?-?- B 150 A -?-?-?-?-?-?-?-?-?-?-?-?- B -?-?-?-?-?-?-?-?-?-?-?-?- A -?-?-?-?-?-?-?-?-?-?-?-?- B A no vb cramping, echo this week. change to omeprazole for gerd -?-?-?-?-?-?-?-?-?-?-?-?- B 06/30/20 -?-?-?-?-?-?-?-?-?-?-?-?- 26w 5d 147 lb 2 oz 110/74 Nega tive -?-?-?-?-?-?-?-?-?-?-?-?- Negative A 135 -?-?-?-?-?-?-?-?-?-?-?-?- B 130 A -?-?-?-?-?-?-?-?-?-?-?-?- B -?-?-?-?-?--?-?-?-?-?-?-?- A -?-?-?-?-?-?-?-?-?-?-?-?- B A GP - no ctx, LOF , VB, DFM. 1h GCT elevated - plan 3h GCT. Anemic - recommend iron. -?-?-?-?-?-?-?-?-?-?-?-?- B 07/15/20 -?-?-?-?-?-?-?-?-?-?-?-?- 28w 6d 156 lb 6 oz 110/80 -?-?-?-?-?-?-?-?-?-?-?-?- A 145 -?-?-?-?-?-?-?-?-?-?-?-?- B 125 A Cephalic -?-?-?-?-?-?-?-?-?-?-?-?- B Cephalic -?-?-?-?-?-?-?-?-?-?-?-?- A -?-?-?-?-?-?-?-?-?-?-?-?- B A GP - no LOF, VB, dFM, ctx. LARC form signed. -?-?-?-?-?-?-?-?-?-?-?-?- B 07/26/20 -?-?-?-?-?-?-?-?-?-?-?-?- 30w 3d 156 lb 102/70 Negative -?-?-?-?-?-?-?-?-?-?-?-?- Negative A 125 -?-?-?-?-?-?-?--?-?-?-?-?- B 140 A Cephalic -?-?-?-?-?-?-?-?-?-?-?-?- B Breech -?-?-?-?-?-?-?-?-?-?-?-?- A -?-?-?-?-?-?-?-?-?-?-?-?- B A SM- no vb lof go od fm no reuglar ctx repeta cbc next visit, -?-?-?-?-?-?-?-?-?-?-?-?- B 08/09/20 -?-?-?-?-?-?-?-?-?-?-?-?- 32w 3d 157 lb 4 oz 114/74 Nega tive -?-?-?-?--?-?-?-?-?-?-?-?- Negative A 125 -?-?-?-?-?-?-?-?-?-?-?-?- B 122 A Cephalic -?-?-?-?-?-?-?-?-?-?-?-?- B Breech -?-?-?-?-?-?-?-?-?-?-?-?- A -?-?-?-?-?-?-?-?-?-?-?-?- B A GP - no LOF, VB, DFM, ctx. Discussed PCD if baby B remains breech. -?-?-?-?-?-?-?-?-?-?-?-?- B 08/18/20 -?-?-?-?-?-?-?-?-?-?-?-?- 33w 5d 157 lb 8 oz 100/70 Nega tive -?-?-?-?-?-?-?-?-?-?-?-?- Negative A 135 -?-?-?-?-?-?-?-?-?-?-?-?- B 130 A Cephalic -?-?-?-?-?-?-?-?-?-?-?-?- B Breech -?-?-?-?-?-?-?-?-?-?-?-?- A -?-?-?-?-?-?-?-?-?-?-?-?- B A GP - no LOF, VB, DFM, ctx. Baby B remains breech - discussed will likely need PCD. -?-?-?-?-?-?-?-?-?-?-?-?- B 08/24/20 -?-?-?-?-?-?-?-?-?-?-?-?- 34w 4d 160 lb 118/78 Negative -?-?-?-?-?-?-?-?-?-?-?-?- Negative A 130 -?-?-?-?-?-?-?-?-?-?-?-?- B 20 120 A Cephalic -?-?-?-?-?-?-?-?-?-?-?-?- B Breech -?-?-?-?-?-?-?-?-?-?-?-?- A -?-?-?-?-?-?-?-?-?-?-?-?- B A SM- no vb lof go od fm no regular ctx -?-?-?-?-?-?-?-?-?-?-?-?- B 08/30/20 -?-?-?-?-?-?-?-?-?-?-?-?- 35w 3d 161 lb 6 oz 114/68 Trac e -?-?-?-?-?-?-?-?-?-?-?-?- Negative A 155 -?-?-?-?-?-?-?-?-?-?-?-?- B 120 A Cephalic -?-?-?-?-?-?-?-?-?-?-?-?- B Breech -?-?-?-?-?-?-?-?-?-?-?-?- A -?-?-?-?-?-?-?-?-?-?-?-?- B A GP - no LOF, VB, DFM, ctx. GBS next visit. Plan PCD at 38w. -?-?-?-?-?-?-?-?-?-?-?-?- B 09/06/20 -?-?-?-?-?-?-?-?-?-?-?-?- 36w 3d 164 lb 120/82 Negative -?-?-?-?-?-?-?-?-?-?-?-?- Negative A 145 -?-?-?-?-?-?-?-?-?-?-?-?- B 135 A Cephalic -?-?-?-?-?-?-?-?-?-?-?-?- B Breech 3 -?-?-?-?-?-?-?-?-?-?-?-?- A -?-?-?-?-?-?-?-?-?-?-?-?- B A SM- no vb lof go od fm x 2 -?-?-?-?-?-?-?-?-?-?-?-?- B 09/07/20 -?-?-?-?-?-?-?-?-?-?-?--?- 36w 4d 115/72 -?-?-?-?-?-?-?-?-?-?-?-?- A -?-?-?-?-?-?-?-?-?-?-?-?- B A -?-?-?-?-?-?-?-?-?-?-?-?- B -?-?-?-?-?-?-?-?-?-?--?-?- A -?-?-?-?-?-?-?-?-?-?-?-?- B A -?-?-?-?-?-?-?-?-?-?-?-?- B NST FHR Rate Baby A Baseline: 120 Variability:: Moderate Accelerations:: 15 x 15 Decelerations:: None NST Reactive:: Yes FHR Category:: Category I FHR Rate Baby B Baseline: 105-110 Variability:: Moderate Accelerations:: 15 x 15 Decelerations:: None NST Reactive:: Yes FHR Category:: Category II ROS Constitutional Constitutional: Reports systems reviewed and no addt'l complaints, except as documented ENT HEENT: Reports systems reviewed and no addt'l complaints, except as documented Cardiovascular Cardiovascular: Reports systems reviewed and no addt'l complaints, except as documented Respiratory/Chest Respiratory/Chest: Reports systems reviewed and no addt'l complaints, except as documented Gastrointestinal Gastrointestinal: Reports systems reviewed and no addt'l complaints, except as documented and nausea; Denies abdominal pain Genitourinary Genitourinary: Reports systems reviewed and no addt'l complaints, except as documented, contractions Details: present and frequency (regular ) and movement Details: present Musculoskeletal Musculoskeletal: Reports systems reviewed and no addt'l complaints, except as documented Integumentary Integumentary: Reports as per HPI Neurologic Neurologic: Reports systems reviewed and no addt'l complaints, except as documented Endocrine Endocrinology: Reports systems reviewed and no addt'l complaints, except as documented Vital Signs Vital Signs Vital Signs: 09/07/20 15:08 09/07/20 15:13 Pulse Rate 94 96 Blood Pressure 115/72 BP Systolic 115 BP Diastolic 72 Pulse Ox 97 97 Weight Body Mass Index (BMI) 28.8 Physical Exam Const alert, oriented x3 and healthy appearing Constitutional Narrative: uncomfortable with contractions HEENT normocephalic and moist oral mucous membranes Head and Scalp: atraumatic Neck full ROM, no lymphadenopathy, supple and thyroid normal General: trachea midline Thyroid: thyroid normal Lymph Lymphatic: no lymphadenopathy noted Chest inspection of chest normal Resp normal respiratory effort Cardio regular rate GI normal to inspection, nondistended, normoactive bowel sounds, soft to palpation and non-tender Inspection: gravid external exam normal Bimanual Exam - Vag & Uterus: uterus non-tender Manual OB Exam: estimated gestational size appropriate, presentation cephalic, dilated, effaced and station Extremity normal to inspection General Extremity: Negative for edema Skin no rashes or lesions noted Neuro deep tendon reflexes 2+ bilaterally Motor Exam: strength 5/5 throughout and clonus absent Psych mental status grossly normal Labs Labs Labs: Blood Type A POSITIVE Antibody Screen NEGATIVE Hct 33.8 % (37-47) L Hgb 10.7 g/dL (12.0-15.0) L Pap Smear Negative Obstetrics US Rubella IgG Antibody Reactive (Nonreactive) Hep Bs Antigen Non-Reactive (Nonreactive) HIV 1&2 Antibody Non-Reactive (Nonreactive) Glucose 1 Hr 50 gm 141 mg/dL (70-140) H Miscellaneous Test Assessment & Plan (1) Pyelectasis of fetus on ultrasound: (2) Anemia affecting : QUALIFIERS: Trimester: second trimester Qualified Code(s): O99 .012 - Anemia complicating , second trimester COMMENT: Hb 10.2. Recommend iron. (3) Abnormal glucose affecting : COMMENT: Normal 3 hr GTT (4) Thyroid disorder: COMMENT: check each trimester. Normal 05/31/20 (5) Dichorionic diamniotic twin : QUALIFIERS: Trimester: second trimester Qualified Code(s): O30.042 - Twin , dichorionic/diamniotic, second trimester COMMENT: anatomy @ 18w- planned at [facility]. (6) Abnormal test: COMMENT: NIPT resulted as atypical findings- MFM consult sent. (7) Conceived by in vitro fertilization: COMMENT: nl echo. (8) Supervision of high risk , antepartum: COMMENT: PRR MILTON 10/01/20 boys!Moses/Deric Brandon (9) : QUALIFIERS: Weeks of gestation: 36 weeks Qualified Code(s): Z3A.36 - 36 weeks gestation of COMMENT: [facility] IVF transfer. twins. LTCS 09/17 @ 7:30am (10) Twin : QUALIFIERS: Multiple gestation type: dichorionic and diamniotic Trimester: third trimester Qualified Code(s): O30.043 - Twin , dichorionic/diamniotic, third trimester COMMENT: NIPT sent. Di/Di. nl anatomy. (11) Active labor at term: COMMENT: proceed with LTCS PLAN: plan immediate LTCS. ancef preop. s/p celestone x 2
--- NOTE | 2020-09-07 15:14 | PCM.HP.OB ---
HPI - General General Date of Admission: 09/07/20 HPI Narrative SALLY HALE, is a 30 F who presents to of labor with malpresentation of twins. A is vertex B is breech patient declines trial of labor. Patient was 3 to 4 cm in the office yesterday and is now 5 cm. she Has had upper abdominal pressure and discomfort no vaginal bleeding or loss of fluid. Maternal Data Information MILTON Calculator Estimated Delivery Date Method Current WG Current Estimate 10/01/20 Ultrasound #1 36w 4d # 2 PFSH PFSH Medical History (Updated 09/07/20 @ 15:[address] Tali Pelletier MD) ACL (anterior cruciate ligament) rupture PCOS (polycystic ovarian syndrome) Home Medications vitamin#30 30 mg iron-10 mg iron-folic acid 1 mg-omg3 capsule cap PO cap 11/21/18 [History Last Taken Unknown] levothyroxine 25 mcg tablet 25 mcg PO DAILY #30 tablet 05/27/20 [Rx Last Taken Unknown] omeprazole 40 mg capsule,delayed release 40 mg PO DAILY #30 cap 05/31/20 [Rx Last Taken Unknown] metoclopramide HCl 10 mg tablet 10 mg PO Q8H #90 tab 06/30/20 [Rx Last Taken Unknown] betamethasone acetate and sodium phos 6 mg/mL suspension for injection 12 mg IM DAILY 2 Days #4 ml 09/06/20 [Rx Last Taken Unknown] Allergy/AdvReac Type Severity Reaction Status Date / Time No Known Allergies Allergy Verified 09/07/20 15:41 Surgical History H/O laparoscopy Social History Smoking Status: Never smoker alcohol intake: never substance use type: does not use caffeine: Yes what type of physical activity do you participate in: walking seatbelt use: always do you feel safe at home: Yes additional social history: 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 [employer] Patient works at [employer] History 2 Elective abortions Hx Para 0 Spontaneous abortions 1 Hx # Term Pregnancies Ectopic pregnancies Hx # Pregnancies Multiple births # of living children Visit Details Expected Delivery Route/Plan ltcs with Labor Preferences- CB/BF classes: [] labor support person: [] labor intervention preferences: [] pain management options preferred: [] cut cord/dad catch: [] : [] PP control planned: [] discussed possible routes of delivery and associated risks: [] special requests: [] Plans flu vaccine: given tdap vaccine: [] rhogam: [] LARC form signed: 07/15/20 Problem list reviewed and updated with the most current plan of care details and appropriate orders placed. Relevant counseling for the gestational age provided. Continue routine care and follow up unless otherwise noted in visit notes/problem list details OB Flowsheet Initial Weight: Not Recorded Date <del>?</del> EGA Weight BP Urine Prot <del>?</del> Glucose FHR FuHt Pres Dilation <del>?</del> Effaced St Visit Note 02/27/20 <del>?</del> 9w 0d 128 lb 6 oz 120/80 <del>?</del> A 160 <del>?</del> B 160 A <del>?</del> B <del>?</del> A <del>?</del> B A SM twin IUP seen measuring within 1 day of each other heart tones seen <del>?</del> B 03/12/20 <del>?</del> 11w 0d 129 lb 108/86 Negative <del>?</del> Negative A 160 <del>?</del> B 160 A <del>?</del> B <del>?</del> A <del>?</del> B A SM_ no vb cramping co nausea and headaches <del>?</del> B 03/26/20 <del>?</del> 13w 0d 132 lb 112/82 <del>?</del> A 150 <del>?</del> B 150 A <del>?</del> B <del>?</del> A <del>?</del> B A SM- no vb cramping <del>?</del> B 04/09/20 <del>?</del> 15w 0d 136 lb 118/72 Negative <del>?</del> Negative A 145 <del>?</del> B 150 A <del>?</del> B <del>?</del> A <del>?</del> B A SM- no vb cramping <del>?</del> B 05/07/20 <del>?</del> 19w 0d 143 lb 120/70 Negative <del>?</del> Negative A 139 <del>?</del> B 136 A <del>?</del> B <del>?</del> A <del>?</del> B A GP - no cramping or bleeding. Scheduled for anatomy scan. Will have echo after this. Having 2 boys! <del>?</del> B 05/31/20 <del>?</del> 22w 3d 148 lb 6 oz 110/70 Negative <del>?</del> Negative A 150 <del>?</del> B 150 A <del>?</del> B <del>?</del> A <del>?</del> B A no vb cramping, echo this week. change to omeprazole for gerd <del>?</del> B 06/30/20 <del>?</del> 26w 5d 147 lb 2 oz 110/74 Negative <del>?</del> Negative A 135 <del>?</del> B 130 A <del>?</del> B <del>?</del> A <del>?</del> B A GP - no ctx, LOF, VB, DFM. 1h GCT elevated - plan 3h GCT. Anemic - recommend iron. <del>?</del> B 07/15/20 <del>?</del> 28w 6d 156 lb 6 oz 110/80 <del>?</del> A 145 <del>?</del> B 125 A Cephalic <del>?</del> B Cephalic <del>?</del> A <del>?</del> B A GP - no LOF, VB, dFM, ctx. LARC form signed. <del>?</del> B 07/26/20 <del>?</del> 30w 3d 156 lb 102/70 Negative <del>?</del> Negative A 125 <del>?</del> B 140 A Cephalic <del>?</del> B Breech <del>?</del> A <del>?</del> B A SM- no vb lof good fm no reuglar ctx repeta cbc next visit, <del>?</del> B 08/09/20 <del>?</del> 32w 3d 157 lb 4 oz 114/74 Negative <del>?</del> Negative A 125 <del>?</del> B 122 A Cephalic <del>?</del> B Breech <del>?</del> A <del>?</del> B A GP - no LOF, VB, DFM, ctx. Discussed PCD if baby B remains breech. <del>?</del> B 08/18/20 <del>?</del> 33w 5d 157 lb 8 oz 100/70 Negative <del>?</del> Negative A 135 <del>?</del> B 130 A Cephalic <del>?</del> B Breech <del>?</del> A <del>?</del> B A GP - no LOF, VB, DFM, ctx. Baby B remains breech - discussed will likely need PCD. <del>?</del> B 08/24/20 <del>?</del> 34w 4d 160 lb 118/78 Negative <del>?</del> Negative A 130 <del>?</del> B 20 120 A Cephalic <del>?</del> B Breech <del>?</del> A <del>?</del> B A SM- no vb lof good fm no regular ctx <del>?</del> B 08/30/20 <del>?</del> 35w 3d 161 lb 6 oz 114/68 Trace <del>?</del> Negative A 155 <del>?</del> B 120 A Cephalic <del>?</del> B Breech <del>?</del> A <del>?</del> B A GP - no LOF, VB, DFM, ctx. GBS next visit. Plan PCD at 38w. <del>?</del> B 09/06/20 <del>?</del> 36w 3d 164 lb 120/82 Negative <del>?</del> Negative A 145 <del>?</del> B 135 A Cephalic <del>?</del> B Breech 3 <del>?</del> A <del>?</del> B A SM- no vb lof good fm x 2 <del>?</del> B 09/07/20 <del>?</del> 36w 4d 115/72 <del>?</del> A <del>?</del> B A <del>?</del> B <del>?</del> A <del>?</del> B A <del>?</del> B NST FHR Rate Baby A Baseline: 120 Variability:: Moderate Accelerations:: 15 x 15 Decelerations:: None NST Reactive:: Yes FHR Category:: Category I FHR Rate Baby B Baseline: 105-110 Variability:: Moderate Accelerations:: 15 x 15 Decelerations:: None NST Reactive:: Yes FHR Category:: Category II ROS Constitutional Constitutional: Reports systems reviewed and no addt'l complaints, except as documented ENT HEENT: Reports systems reviewed and no addt'l complaints, except as documented Cardiovascular Cardiovascular: Reports systems reviewed and no addt'l complaints, except as documented Respiratory/Chest Respiratory/Chest: Reports systems reviewed and no addt'l complaints, except as documented Gastrointestinal Gastrointestinal: Reports systems reviewed and no addt'l complaints, except as documented and nausea; Denies abdominal pain Genitourinary Genitourinary: Reports systems reviewed and no addt'l complaints, except as documented, contractions Details: present and frequency (regular ) and movement Details: present Musculoskeletal Musculoskeletal: Reports systems reviewed and no addt'l complaints, except as documented Integumentary Integumentary: Reports as per HPI Neurologic Neurologic: Reports systems reviewed and no addt'l complaints, except as documented Endocrine Endocrinology: Reports systems reviewed and no addt'l complaints, except as documented Vital Signs Vital Signs Vital Signs: 09/07/20 15:08 09/07/20 15:13 Pulse Rate 94 96 Blood Pressure 115/72 BP Systolic 115 BP Diastolic 72 Pulse Ox 97 97 Weight Body Mass Index (BMI) 28.8 Physical Exam Const alert, oriented x3 and healthy appearing Constitutional Narrative: uncomfortable with contractions HEENT normocephalic and moist oral mucous membranes Head and Scalp: atraumatic Neck full ROM, no lymphadenopathy, supple and thyroid normal General: trachea midline Thyroid: thyroid normal Lymph Lymphatic: no lymphadenopathy noted Chest inspection of chest normal Resp normal respiratory effort Cardio regular rate GI normal to inspection, nondistended, normoactive bowel sounds, soft to palpation and non-tender Inspection: gravid external exam normal Bimanual Exam - Vag & Uterus: uterus non-tender Manual OB Exam: estimated gestational size appropriate, presentation cephalic, dilated, effaced and station Extremity normal to inspection General Extremity: Negative for edema Skin no rashes or lesions noted Neuro deep tendon reflexes 2+ bilaterally Motor Exam: strength 5/5 throughout and clonus absent Psych mental status grossly normal Labs Labs Labs: Blood Type A POSITIVE Antibody Screen NEGATIVE Hct 33.8 % (37-47) L Hgb 10.7 g/dL (12.0-15.0) L Pap Smear Negative Obstetrics US Rubella IgG Antibody Reactive (Nonreactive) Hep Bs Antigen Non-Reactive (Nonreactive) HIV 1&2 Antibody Non-Reactive (Nonreactive) Glucose 1 Hr 50 gm 141 mg/dL (70-140) H Miscellaneous Test Assessment & Plan (1) Pyelectasis of fetus on ultrasound: (2) Anemia affecting : QUALIFIERS: Trimester: second trimester Qualified Code(s): O99.012 - Anemia complicating , second trimester COMMENT: Hb 10.2. Recommend iron. (3) Abnormal glucose affecting : COMMENT: Normal 3 hr GTT (4) Thyroid disorder: COMMENT: check each trimester. Normal 05/31/20 (5) Dichorionic diamniotic twin : QUALIFIERS: Trimester: second trimester Qualified Code(s): O30.042 - Twin , dichorionic/diamniotic, second trimester COMMENT: anatomy @ 18w- planned at [facility]. (6) Abnormal test: COMMENT: NIPT resulted as atypical findings- MFM consult sent. (7) Conceived by in vitro fertilization: COMMENT: nl echo. (8) Supervision of high risk , antepartum: COMMENT: PRR MILTON 10/01/20 boys!Moses/Deric Brandon (9) : QUALIFIERS: Weeks of gestation: 36 weeks Qualified Code(s): Z3A.36 - 36 weeks gestation of COMMENT: [facility]. twins. LTCS 09/17 @ 7:30am (10) Twin : QUALIFIERS: Multiple gestation type: dichorionic and diamniotic Trimester: third trimester Qualified Code(s): O30.043 - Twin , dichorionic/diamniotic, third trimester COMMENT: NIPT sent. Di/Di. nl anatomy. (11) Active labor at term: COMMENT: proceed with LTCS PLAN: plan immediate LTCS. ancef preop. s/p celestone x 2
[2020-09-07] MEDS: Terbutaline 1 MG/ML Vial 0.25 MG SC (15:30)
[2020-09-07] MEDS: Lactated Ringers 1,000 ML 999 ML IV (15:45)
[2020-09-07 16:10] LABS: Absolute Lymphocyte Count 2.88 X10^3/uL (0.83-4.51); Absolute Neutrophil Count 12.7 X10^3/uL (2.0-7.7); Basophil# 0.03 X10^3/uL; Basophil% 0.2 % (0-1); Hemoglobin 11.3 g/dL (12.0-15.0); Lymphocyte # 2.88 X10^3/ul (0.83-4.51); Mean Corp Hgb Conc 32.3 g/dL (32-36); Mean Corpuscular Volume 92.8 fL (81-99); Mean Platelet Vol. 10.4 fl (6.2-12.0); Monocyte# 1.01 X10^3/uL; NRBC Flagged by Analyzer 0.1 % (0-5); Neutrophil # 12.68 X10^3/uL (2.7-7.7); Platelet Count 337 K/mm3 (150-450); RBC Distribution Width CV 15.9 % (11.6-14.6); Red Blood Count 3.77 M/mm3 (4.2-5.4); White Blood Count 16.9 K/mm3 (4.4-11.0)
[2020-09-07] MEDS: Acetaminophen 500 MG Tablet 1000 MG PO ×2 (16:24→22:03)
[2020-09-07] MEDS: Sodium Citrate/Citric Acid 30 ML UDC PO (16:24)
[2020-09-07] MEDS: Lactated Ringers 1,000 ML 150 ML IV (16:39)
[2020-09-07] MEDS: Cefazolin 2 GM in 0.9% Normal Saline 100 ML IV (17:10)
[2020-09-07] MEDS: Methylergonovine 0.2 MG/ML Ampul IM (17:30)
--- NOTE | 2020-09-07 18:06 | OP.PCM_ITS ---
Assessment & Plan (1) delivery delivered: COMMENT: 36 PTL twins LTCS vtx phong Lopes/Deric (2) Anemia affecting : QUALIFIERS: Trimester: second trimester Qualified Code(s): O99.012 - Anemia complicating , second trimester COMMENT: Hb 10.2. Recommend iron. (3) Dichorionic diamniotic twin : QUALIFIERS: Trimester: second trimester Qualified Code(s): O30.042 - Twin , dichorionic/diamniotic, second trimester COMMENT: anatomy @ 18w- planned at [facility]. (4) : QUALIFIERS: Weeks of gestation: 36 weeks Qualified Code(s): Z3A.36 - 36 weeks gestation of COMMENT: [facility]. twins. LTCS 09/17 @ 7:30am (5) Twin : QUALIFIERS: Multiple gestation type: dichorionic and diamniotic Trimester: third trimester Qualified Code(s): O30.043 - Twin , dichorionic/diamniotic, third trimester COMMENT: NIPT sent. Di/Di. nl anatomy. (6) Thyroid disorder: COMMENT: check each trimester. 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 Patient was prepped and draped in the normal sterile fashion. Pfannenstiel skin incision was made with the scalpel and carried through to the underlying layer of fascia with the scalpel. Fascia was nicked in the midline and the incision extended laterally. The rectus bellies were dissected off superiorly and inferiorly with out complication both sharply and bluntly. The peritoneum was entered digitally. The incision was stretched and a low transverse uterine incision was made with the scalpel. The 's head was delivered atraumatically followed by the anterior and posterior shoulders without complication the rest of the infant delivered. The cord was clamped and cut and the infant was handed off to awaiting nurse. Water was broken on baby B was delivered breech by delivering with downward pressure on the hip sweeping the legs and then the arms forward flexing the head and delivering without complication. The placenta was delivered spontaneously immediately following and was noted to be intact and have a three-vessel cord. The uterus was exteriorized cleared of all clots and debris, and the incision was closed in a double layer closure using #1 Monocryl. The ovaries and fallopian tubes were noted to be within normal limits. The uterus was returned to the maternal abdomen and gutters were cleared of all clots and debris. The peritoneum was closed with 3-0 Monocryl in a running fashion. Gloves were changed prior to fascial closure. Fascia was closed with 0 PDS in a running fashion. Subcutan eous tissue was copiously irrigated and the skin was closed with 3-0 Monocryl in a subcuticular fashion. Mepilex dressing was applied without complication. Patient was taken to recovery in stable condition. It was discussed with the patient that based on the clinical information obtained during this encounter, combined with her history, at this time I would recommend or vaginal for future deliveries if further pregnancies are desired. Amniotic Membrane Rupture Type: Artificial Amniotic Fluid Description: Clear Placental Delivery Description: Spontaneous Placenta Disposition: [facility] Cord Vessel Description: 3 Vessels Cord Entanglement: Around neck x 1, loose A Gender: Male Delayed Cord Clamping: Yes Complications Risks of Surgery Discussed w/Patient: Bleeding, Infection, Need for Future C- Sections and Injury to surrounding structure(s) including bowel and bladder Complications: none Admit VTE Documentation VTE Present on Admission: No VTE Mechan Device Prophylaxis: SCD's Baby B Information Amniotic Membrane Rupture Type: Artificial Presentation: [place] Breech Operative Information Mode of Delivery: Cord Vessel Description: 3 Vessels Cord Entanglement: None Infant B gender: Male Delayed Cord Clamping: Yes Procedures Urinary/Genital [id number]: [id number] Delivery global pkg (twins)
[2020-09-07] MEDS: Oxytocin 30 units/NS 500 ml 30 UNITS/500 ML IV.SOLN 167 UNITS IV (18:33)
[2020-09-07] MEDS: Carboprost Tromethamine 250 MCG/ML Ampul IM ×2 (18:47→20:06)
--- NOTE | 2020-09-07 19:18 | PCM.DC ---
Discharge Instructions Diet Discharge Diet: No restrictions Activity Discharge Activity: May Not Drive (for 2 weeks or while taking narcotic pain medications.), May Shower and May Take a Tub Bath (in 7 days) May shower in (days): 0 May resume sexual activity in: 4-6 weeks Weight Bearing Status: Full weight bearing Lifting Restrictions: 20 pounds Dressing / Incision Call your doctor if your incision/area has: Continuous Slow Oozing, Sudden Increased Bleeding, Increased Pain/ Swelling, Increased Redness and Foul Smelling Discharge Call your doctor if you observe: Fever of 101 or Higher and Using more than 1 pad per hour (for 2 hours) Suture Line Care: Avoid Pulling/Pushing and Avoid Pinching/Bending Cleanse incision/area with: Soap & Water and Keep Dressing Clean & Dry Follow Up Care Please Follow Up With: Tali Pelletier MD When: Call [phone] to make an appointment for an incision check in 1-2 weeks. Test Results: Test results from this visit will be discussed in further detail at your follow-up appointment, if applicable. Discharge Plan Admission Admit Date/Time: 09/07/20 14:50 Primary Reason for Your Visit: delivery Attending Provider: Tali Pelletier Primary Care Provider: Care Physician,No Primary Discharge Orders/Prescriptions Prescriptions: New oxycodone-acetaminophen [Endocet] 5-325 mg tablet 1 tab PO Q4H PRN (Reason: pain) 7 Days Qty: 20 RF: 0 ibuprofen [ibuprofen] 600 MG tablet 600 mg PO Q6H PRN PRN (Reason: Pain) Qty: 30 RF: 0 Continued vitamin#30 30 mg iron-10 mg iron-folic acid 1 mg-omg3 capsule 30 mg iron-10 mg iron-1 mg capsule PO RF: 0 omeprazole 40 mg capsule,delayed release(DR/EC) 40 mg PO DAILY RF: 0 metoclopramide HCl [Reglan] 10 mg tablet 10 mg PO Q8H RF: 0 Discontinued aspirin 81 mg Tablet 81 mg PO DAILY RF: 0 levothyroxine [Synthroid] 25 mcg tablet 25 mcg PO DAILY RF: 0 betamethasone acet,sod phos [Celestone Soluspan] 6 mg/mL suspension 12 mg IM DAILY RF: 0 Referrals / Follow Up: Tali Pelletier MD [STAFF PHYSICIAN] - Care Physician,No Primary [Primary Care Provider] - Disposition Disposition (needs filled in before D/C Order can be placed): Home, Self Care
[2020-09-07] MEDS: Ketorolac 30 MG/ML Syringe IV (19:30)
[2020-09-07] MEDS: 0.9% Saline Lock 10 ML Syringe IV ×2 (20:09→20:31)
[2020-09-07 20:33] LABS: Absolute Neutrophil Count 14.6 X10^3/uL (2.0-7.7); Basophil# 0.03 X10^3/uL; Basophil% 0.2 % (0-1); Eosinophil# 0.01 X10^3/uL; Eosinophils% 0.1 % (0-5); Hematocrit 28.3 % (37-47); Hemoglobin 8.9 g/dL (12.0-15.0); Lymphocyte % 11.2 % (19-41); Mean Corp Hgb Conc 31.4 g/dL (32-36); Mean Corpuscular Hgb 29.7 pg (27.0-32.0); Mean Corpuscular Volume 94.3 fL (81-99); Mean Platelet Vol. 10.6 fl (6.2-12.0); NRBC Flagged by Analyzer 0.2 % (0-5); Neutrophil # 14.62 X10^3/uL (2.7-7.7); Neutrophil % 81.6 % (47-70); Platelet Count 268 K/mm3 (150-450); RBC Distribution Width CV 15.8 % (11.6-14.6); RBC Distribution Width SD 54.1 fl (35.1-43.9); White Blood Count 17.9 K/mm3 (4.4-11.0)
[2020-09-07] MEDS: Lactated Ringers 1,000 ML 100 ML IV (22:30)
[2020-09-08] VITALS (7 sets, daily range): BP systolic 101–126; BP diastolic 59–85; PULSE 72–86; RESP 16–18; TEMP 36.3–37.3; O2SAT 95–100
[2020-09-08] MEDS: Ketorolac 30 MG/ML Syringe IV ×3 (01:35→13:17)
[2020-09-08] MEDS: Ondansetron 4 MG/2 ML Vial IV (04:31)
[2020-09-08] MEDS: 0.9% Saline Lock 10 ML Syringe IV ×3 (04:31→13:18)
[2020-09-08] MEDS: Acetaminophen 500 MG Tablet 1000 MG PO ×4 (04:31→22:33)
[2020-09-08 06:39] LABS: Hematocrit 23.3 % (37-47); Hemoglobin 7.6 g/dL (12.0-15.0); Mean Corp Hgb Conc 32.6 g/dL (32-36); Mean Corpuscular Hgb 30.4 pg (27.0-32.0); Mean Corpuscular Volume 93.2 fL (81-99); Mean Platelet Vol. 10.4 fl (6.2-12.0); Platelet Count 260 K/mm3 (150-450); RBC Distribution Width CV 15.5 % (11.6-14.6); RBC Distribution Width SD 51.8 fl (35.1-43.9); White Blood Count 22.7 K/mm3 (4.4-11.0)
--- NOTE | 2020-09-08 07:05 | NURSING ---
late entry: pt had additional blood loss during recovery, estimated blood loss during recovery 550mL and measured blood loss 390mL. Dr. Liyah roman.
--- NOTE | 2020-09-08 07:41 | PN.OBGYN_ITS ---
Subjective Subjective Patient doing well without complaints. Tolerating PO. Ambulating and voiding without difficulty. She is pumping. One baby is in SCN other with patient. Both doing well. Denies chest pain, shortness of breath, calf pain/swelling, fevers, chills, lightheadedness. Objective Data Objective Data Vital Signs: Vital Signs Temp Pulse Resp BP Pulse Ox 99.2 F H 72 16 112/63 98 09/07/20 23:17 09/08/20 03:33 09/07/20 21:32 09/08/20 03:33 09/07/20 23:17 Oxygen Delivery Method Room Air Weight: 159 lb Body Mass Index (BMI) 29.0 Intake & Output: Intake and Output for Last 24 Hours 09/06/20 09/07/20 09/08/20 23:59 23:59 23:59 Intake Total 2720.00 / 2720.00 Output Total 390 / 390 Balance 2330.00 / 2330.00 Lab / Micro Data Result Diagrams: 09/08/20 06:27 Labs: Laboratory Results - last 24 hr 09/07/20 15:45: WBC 16.9 H, RBC 3.77 L, Hgb 11.3 L, Hct 35.0 L, MCV 92.8, MCH 30.0, MCHC 32.3, RDW Std Deviation 54.0 H, RDW Coeff of Sam 15.9 H, Plt Count 337, MPV 10.4, Immature Gran % (Auto) 1.800 H, Neut % (Auto) 75.0 H, Lymph % (Auto) 17.0 L, [place] % (Auto) 6.0, Eos % (Auto) 0.0, Baso % (Auto) 0.2, Absolute Neuts (auto) 12.7 H, Absolute Lymphs (auto) 2.88, Nucleated RBC % 0.1 09/07/20 15:45: Blood Type A POSITIVE, Antibody Screen NEGATIVE 09/07/20 20:23: WBC 17.9 H, RBC 3.00 L, Hgb 8.9 L, Hct 28.3 L, MCV 94.3, MCH 29.7, MCHC 31.4 L, RDW Std Deviation 54.1 H, RDW Coeff of Sam 15.8 H, Plt Count 268, MPV 10.6, Immature Gran % (Auto) 1.900 H, Neut % (Auto) 81.6 H, Lymph % (Auto) 11.2 L, [place] % (Auto) 5.0, Eos % (Auto) 0.1, Baso % (Auto) 0.2, Absolute Neuts (auto) 14.6 H, Absolute Lymphs (auto) 2.00, Nucleated RBC % 0.2 09/08/20 06:27: WBC 22.7 H, RBC 2.50 L, Hgb 7.6 L, Hct 23.3 L, MCV 93.2, MCH 30.4, MCHC 32.6, RDW Std Deviation 51.8 H, RDW Coeff of Sam 15.5 H, Plt Count 260, MPV 10.4 Micro: Microbiology 09/07/20 16:30 Mucosa - Nose SARS-CoV-2 Antigen (Rapid) - Final Physical Exam Const alert and oriented x3 HEENT normocephalic Eyes PERRL Neck full ROM Resp normal respiratory effort GI soft to palpation GI Narrative: FF below U. Dressing dry and intact Palpation: tender other (appropriately) Assessment & Plan (1) delivery delivered: COMMENT: 36 PTL twins LTCS vtx phong Lopes/Deric PLAN: s/p LTCS PPD # 1 1. routine post care 2. breast feeding- support given 3. rh positive 4. rubella immune
--- NOTE | 2020-09-08 08:31 | NURSING ---
Addendum entered by Shanice Snow 09/08/20 08:32: late entry: Original Note: see vital signs intervention for 2100 and 2300 duramorph assessment
--- NOTE | 2020-09-08 08:43 | NURSING ---
documentation completed late entry due to busy unit acuity.
--- NOTE | 2020-09-08 08:52 | NURSING ---
Late entry documentation due to busy unit and high pt acuity.
[2020-09-08] MEDS: Senna/Docusate Sodium 1 Tablet PO (10:36)
--- NOTE | 2020-09-08 17:06 | NURSING ---
RN spoke with Dr. Reeves to update on pts BP trending down. All other vitals are stable. This RN collected all pts disposed pads to look at blood loss-appropriate bleeding noted. Pt is asymptomatic. Fundus is midline and at U. Going to SCN to feed other son. Denies issues other then pain-denies needs for stronger pain medication. Plan is to repeat CBC tomorrow AM, and if becomes asymptomatic can draw it earlier.
[2020-09-08] MEDS: Naproxen 500 MG Tablet PO (20:47)
[2020-09-09] MEDS: oxyCODONE 5 MG Tablet PO ×2 (01:38→23:36)
[2020-09-09 01:58] VITALS: BP 104/61; PULSE 82; RESP 16; TEMP 36.8; O2SAT 95
[2020-09-09] MEDS: Acetaminophen 500 MG Tablet 1000 MG PO ×4 (05:09→22:49)
[2020-09-09] MEDS: Naproxen 500 MG Tablet PO ×3 (05:09→21:15)
[2020-09-09 06:58] LABS: Hematocrit 21.5 % (37-47); Mean Corp Hgb Conc 32.6 g/dL (32-36); Mean Corpuscular Hgb 30.3 pg (27.0-32.0); Mean Corpuscular Volume 93.1 fL (81-99); Mean Platelet Vol. 10.1 fl (6.2-12.0); Platelet Count 283 K/mm3 (150-450); RBC Distribution Width CV 16.1 % (11.6-14.6); RBC Distribution Width SD 53.3 fl (35.1-43.9); Red Blood Count 2.31 M/mm3 (4.2-5.4); White Blood Count 17.6 K/mm3 (4.4-11.0)
--- NOTE | 2020-09-09 08:09 | PCM.PN.OB ---
Subjective Subjective Patient doing well without complaints. Tolerating PO. Ambulating and voiding without difficulty. infant feeding well. Denies chest pain, shortness of breath, calf pain/swelling, fevers, chills, lightheadedness. Objective Data Objective Data Vital Signs: Vital Signs Temp Pulse Resp BP Pulse Ox 98.3 F 82 16 104/61 95 09/09/20 01:58 09/09/20 01:58 09/09/20 01:58 09/09/20 01:58 09/09/20 01:58 Oxygen Delivery Method Room Air Weight: 159 lb Body Mass Index (BMI) 29.0 Intake & Output: Intake and Output for Last 24 Hours 09/07/20 09/08/20 09/09/20 23:59 23:59 23:59 Intake Total 2720.00 / 2720.00 516.67 / 516.67 Output Total 390 / 390 1350 / 1350 Balance 2330.00 / 2330.00 -833.33 / -833.33 Lab / Micro Data Result Diagrams: 09/09/20 06:50 Labs: Laboratory Results - last 24 hr 09/09/20 06:50: WBC 17.6 H, RBC 2.31 L, Hgb 7.0 L, Hct 21.5 L, MCV 93.1, MCH 30.3, MCHC 32.6, RDW Std Deviation 53.3 H, RDW Coeff of Sam 16.1 H, Plt Count 283, MPV 10.1 Micro: Microbiology 09/07/20 16:30 Mucosa - Nose SARS-CoV-2 Antigen (Rapid) - Final ROS Constitutional Constitutional: Reports systems reviewed and no addt'l complaints, except as documented Cardiovascular Cardiovascular: Reports systems reviewed and no addt'l complaints, except as documented Respiratory/Chest Respiratory/Chest: Reports systems reviewed and no addt'l complaints, except as documented Gastrointestinal Gastrointestinal: Reports systems reviewed and no addt'l complaints, except as documented Physical Exam Const alert, oriented x3 and no apparent distress HEENT Head and Scalp: atraumatic Resp normal respiratory effort GI soft to palpation and non-tender Inspection: incision intact, healing well and drainage (none) Bimanual Exam - Vag & Uterus: uterus non-tender Uterus Palpation: uterus fundus firm (below Umbilicus) Assessment & Plan (1) delivery delivered: COMMENT: 36 PTL twins SM LTCS vtx brch Moses/Deric (2) Postoperative anemia: PLAN: repeat Hg in 4 hours transfuse PRN or for symptoms
[2020-09-09 08:19] VITALS: BP 108/74; PULSE 78; RESP 16; TEMP 36.8; O2SAT 94
[2020-09-09] MEDS: Senna/Docusate Sodium 1 Tablet PO (10:09)
[2020-09-09 11:28] LABS: Hematocrit 21.8 % (37-47); Hemoglobin 7.1 g/dL (12.0-15.0)
[2020-09-09] MEDS: 0.9% Saline Lock 10 ML Syringe IV (14:16)
[2020-09-09 14:27] VITALS: BP 112/78; PULSE 82; RESP 16; TEMP 37; O2SAT 98
--- NOTE | 2020-09-09 15:00 | NURSING ---
Pt requested this nurse to remove IV. Site is feeling tender.
[2020-09-09 21:18] VITALS: BP 117/77; PULSE 82; RESP 18; TEMP 37.1
[2020-09-10 03:03] VITALS: BP 95/50; PULSE 74; RESP 16
[2020-09-10] MEDS: Naproxen 500 MG Tablet PO ×3 (04:36→20:08)
[2020-09-10] MEDS: Acetaminophen 500 MG Tablet 1000 MG PO ×4 (04:36→22:45)
[2020-09-10 04:51] LABS: Absolute Lymphocyte Count 6.16 X10^3/uL (0.83-4.51); Absolute Neutrophil Count 9.2 X10^3/uL (2.0-7.7); Basophil# 0.04 X10^3/uL; Basophil% 0.2 % (0-1); Eosinophil# 0.12 X10^3/uL; Eosinophils% 0.7 % (0-5); Hematocrit 22.4 % (37-47); Hemoglobin 7.1 g/dL (12.0-15.0); Lymphocyte # 6.16 X10^3/ul (0.83-4.51); Lymphocyte % 34.7 % (19-41); Mean Corp Hgb Conc 31.7 g/dL (32-36); Mean Corpuscular Hgb 30.1 pg (27.0-32.0); Mean Corpuscular Volume 94.9 fL (81-99); Mean Platelet Vol. 9.6 fl (6.2-12.0); Monocyte# 1.54 X10^3/uL; Monocyte% 8.7 % (0-10); NRBC Flagged by Analyzer 1.3 % (0-5); Neutrophil # 9.24 X10^3/uL (2.7-7.7); POSITIVE DIFFERENTIAL YES; POSITIVE MORPHOLOGY YES; Platelet Count 318 K/mm3 (150-450); RBC Distribution Width CV 16.1 % (11.6-14.6); RBC Distribution Width SD 55.9 fl (35.1-43.9); Red Blood Count 2.36 M/mm3 (4.2-5.4); White Blood Count 17.8 K/mm3 (4.4-11.0)
[2020-09-10 04:54] LABS: Differential Indicated SCAN CRITERIA MET
--- NOTE | 2020-09-10 07:12 | PN.OBGYN_ITS ---
Subjective Subjective Patient doing well without complaints. Tolerating PO. Ambulating without difficulty. Denies chest pain, shortness of breath, calf pain/swelling, fevers, chills, lightheadedness. Objective Data Objective Data Vital Signs: Vital Signs Temp Pulse Resp BP Pulse Ox 98.7 F 74 16 95/50 L 98 09/09/20 21:18 09/10/20 03:03 09/10/20 03:03 09/10/20 03:03 09/09/20 14:27 Oxygen Delivery Method Room Air Weight: 159 lb Body Mass Index (BMI) 29.0 Intake & Output: Intake and Output for Last 24 Hours 09/08/20 09/09/20 09/10/20 23:59 23:59 23:59 Intake Total 516.67 / 516.67 110 / 110 Output Total 1350 / 1350 Balance -833.33 / -833.33 110 / 110 Lab / Micro Data Result Diagrams: 09/10/20 04:40 Labs: Laboratory Results - last 24 hr 09/09/20 11:20: Hgb 7.1 L, Hct 21.8 L 09/10/20 04:40: WBC 17.8 H, RBC 2.36 L, Hgb 7.1 L, Hct 22.4 L, MCV 94.9, MCH 30.1, MCHC 31.7 L, RDW Std Deviation 55.9 H, RDW Coeff of Sam 16.1 H, Plt Count 318, MPV 9.6, Immature Gran % (Auto) 3.700 H, Neut % (Auto) 52.0, Lymph % (Auto) 34.7, [place] % (Auto) 8.7, Eos % (Auto) 0.7, Baso % (Auto) 0.2, Absolute Neuts (auto) 9.2 H, Absolute Lymphs (auto) 6.16 H, Nucleated RBC % 1.3, Diff Path Review June Micro: Microbiology 09/07/20 16:30 Mucosa - Nose SARS-CoV-2 Antigen (Rapid) - Final ROS Constitutional Constitutional: Reports systems reviewed and no addt'l complaints, except as documented Cardiovascular Cardiovascular: Reports systems reviewed and no addt'l complaints, except as documented Respiratory/Chest Respiratory/Chest: Reports systems reviewed and no addt'l complaints, except as documented Gastrointestinal Gastrointestinal: Reports systems reviewed and no addt'l complaints, except as documented Physical Exam Const alert, oriented x3 and no apparent distress HEENT Head and Scalp: atraumatic Resp normal respiratory effort GI soft to palpation and non-tender Assessment & Plan (1) delivery delivered: COMMENT: 36 PTL twins SM LTCS vtx phong Lopes/Deric (2) Postoperative anemia: COMMENT: iv iron , oral iron, repeat cbc 2 weeks PP PLAN: s/p LTCS PPD # 3 1. routine post care 2. breast feeding- support given 3. rh positive 4. rubella immune
--- NOTE | 2020-09-10 07:13 | DS.PCM_ITS ---
Providers Date of Admission: 09/07/20 Primary Care Physician: Naomie Primary Care Phys Reason For Visit: PRIMARY CSECTION OF TWINS Diagnosis Discharge Diagnosis (1) delivery delivered: Status: Resolved Code(s): O82 - Encounter for delivery without indication (2) Postoperative anemia: Status: Resolved Code(s): D64.9 - Anemia, unspecified Medications at Discharge Home Medications vitamin#30 30 mg iron-10 mg iron-folic acid 1 mg-omg3 capsule cap PO cap 11/21/18 ibuprofen 600 mg PO Q6H PRN PRN #30 tab 09/07/20 metoclopramide HCl [Reglan] 10 mg PO Q8H 09/07/20 omeprazole 40 mg PO DAILY 09/07/20 oxycodone-acetaminophen [Endocet] 1 tab PO Q4H PRN 7 Days #20 tab 09/07/20 Hospital Course Summary of Care Provided Hospital Course: patient presented for RLTCS and had an uncomplicated delivery. Postoperatively patient had return of bowel and bladder function and was ambulating well, tolerating adequate p.o., and was stable for discharge to home on postop day #3. Discharge medications naproxen and Percocet, iron. Follow-up in office in 2 weeks for incision check in 6 weeks for visit. Routine post section diet and activity instructions. Weight / BMI Weight Weight: 159 lb Body Mass Index (BMI) 29.0 ABG / Lab / Microbiology Data Result Diagrams: 09/10/20 04:40 Laboratory: Laboratory Results - last 24 hr 09/09/20 11:20: Hgb 7.1 L, Hct 21.8 L 09/10/20 04:40: WBC 17.8 H, RBC 2.36 L, Hgb 7.1 L, Hct 22.4 L, MCV 94.9, MCH 30.1, MCHC 31.7 L, RDW Std Deviation 55.9 H, RDW Coeff of Sam 16.1 H, Plt Count 318, MPV 9.6, Immature Gran % (Auto) 3.700 H, Neut % (Auto) 52.0, Lymph % (Auto) 34.7, [place] % (Auto) 8.7, Eos % (Auto) 0.7, Baso % (Auto) 0.2, Absolute Neuts (auto) 9.2 H, Absolute Lymphs (auto) 6.16 H, Nucleated RBC % 1.3, Diff Path Review May Microbiology: Microbiology 09/07/20 16:30 Mucosa - Nose SARS-CoV-2 Antigen (Rapid) - Final D/C Instructions Discharge Diet: No restrictions Discharge Activity: May Not Drive (for 2 weeks or while taking narcotic pain medications.), May Shower and May Take a Tub Bath (in 7 days) May shower in (days): 0 May resume sexual activity in: 4-6 weeks Weight Bearing Status: Full weight bearing Call your doctor if your incision/area has: Continuous Slow Oozing, Sudden Increased Bleeding, Increased Pain/ Swelling, Increased Redness and Foul Smelling Discharge Call your doctor if you observe: Fever of 101 or Higher and Using more than 1 pad per hour (for 2 hours) Suture Line Care: Avoid Pulling/Pushing and Avoid Pinching/Bending Cleanse incision/area with: Soap & Water and Keep Dressing Clean & Dry Please Follow Up With: Tali Pelletier MD When: Call [phone] to make an appointment for an incision check in 1-2 weeks. Meaningful Use Info Meaningful Use Diagnoses (Choose all that apply): None applicable Discharge Plan Admission Admit Date/Time: 09/07/20 14:50 Primary Reason for Your Visit: delivery Attending Provider: Tali Pelletier Primary Care Provider: Care Physician,No Primary Discharge Orders/Prescriptions Prescriptions: New oxycodone-acetaminophen [Endocet] 5-325 mg tablet 1 tab PO Q4H PRN (Reason: pain) 7 Days Qty: 20 RF: 0 ibuprofen [ibuprofen] 600 MG tablet 600 mg PO Q6H PRN PRN (Reason: Pain) Qty: 30 RF: 0 Continued vitamin#30 30 mg iron-10 mg iron-folic acid 1 mg-omg3 capsule 30 mg iron-10 mg iron-1 mg capsule PO RF: 0 omeprazole 40 mg capsule,delayed release(DR/EC) 40 mg PO DAILY RF: 0 metoclopramide HCl [Reglan] 10 mg tablet 10 mg PO Q8H RF: 0 Discontinued aspirin 81 mg Tablet 81 mg PO DAILY RF: 0 levothyroxine [Synthroid] 25 mcg tablet 25 mcg PO DAILY RF: 0 betamethasone acet,sod phos [Celestone Soluspan] 6 mg/mL suspension 12 mg IM DAILY RF: 0 Referrals / Follow Up: Tali Pelletier MD [STAFF PHYSICIAN] - Care Physician,No Primary [Primary Care Provider] - Disposition Disposition (needs filled in before D/C Order can be placed): Home, Self Care
[2020-09-10 07:52] VITALS: BP 114/66; PULSE 68; RESP 16; TEMP 36.5
[2020-09-10] MEDS: Senna/Docusate Sodium 1 Tablet PO (10:54)
[2020-09-10 14:13] LABS: Pathologist Review Reviewed
[2020-09-10 14:51] VITALS: BP 111/72; PULSE 91; RESP 16; TEMP 36.9; O2SAT 97
--- NOTE | 2020-09-10 15:03 | CASEMGMT ---
Social Work Brief Assessment Labor and Delivery Unit Patient Address: [address] [place] [address] , [place] [address] Phone number: [phone] Date of Referral/Notification: 09/08/2020 Time of Referral: [phone] Referred By: Social work identification Date of Intervention: 09/10/2020 Time of Intervention: 1245 Reason for Referral: Infant admitted to the [facility]; offer support Informant: Medical record and mother of baby (CHIKIS) Quynh Archibald; father of baby (FOB) also present. History: CHIKIS is a 30-year-old female, to the FOB Brandon Archibald. Per admission assessment, no history or concern for safety or abuse. CHIKIS is 2, para 0 now 2 after delivery twin boys. Medical records indicate maternal history of PCOS and infertility. Conception with the twins occurred via in vitro fertilization. MOB and FOB report history of IUI prior to the IVF. care with this occurred starting at 9 weeks. Delivery via an [place] at 36 weeks gestation. Baby A, Moses Archibald, weight 6 pounds 2 ounces at . Apgars 8 and 9 at 1 and 5 minutes of life. Moses was admitted into the special care nursery at [facility] for some respiratory distress issues. Baby B, Deric Archibald, weighed 6 pounds 9 ounces and Apgars were also 8 and 9. 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 Employer is [employer]. FOB is a manager fine for [employer]. CHIKIS denies any personal or family history of depression, anxiety, or other emotional health issues. No substance use issues reported for either parent. No drug screening noted in the medical record. Assessment: Met with the MOB and FOB together. Introducing to self and social work role. Educated to this program writer being the assigned child protective services social worker to the labor and delivery unit at [employer], as well as the assigned child protective services social worker to the special care nursery for continuity of care families. MOB and FOB report to have adequate support from family on both sides. The FOB will be off work for a couple of weeks to help with the transition home. Needed supplies are reported to be in place. Educated parents to mood and anxiety disorders and risk factors. Provided parents information on mood and anxiety disorders which does include resources. Educated parents to the [facility] nurse visit program, which the parents declined a referral to. Also provided information on home girl, safe sleeping, and shaken baby prevention. Baby is Deric slept in the bedside crib throughout the social work visit. Noted both parents intermittently gazing over at the baby. MOB and FOB are hopeful that all can be discharged later today. Plan: MOB and infants will discharge home when medically stable. Resources provided for mood and anxiety disorders, as well as some resources for their home area [place]. No further needs requested or indicated. -SAMUEL Hopkins, DIAMOND WHEEL EDGER *Information documented in this assessment generated with [employer]*
[2020-09-10 20:05] VITALS: BP 133/82; PULSE 88; RESP 16; TEMP 37
[2020-09-11 04:47] VITALS: BP 137/79; PULSE 69; RESP 18
[2020-09-11] MEDS: Naproxen 500 MG Tablet PO (04:51)
[2020-09-11] MEDS: Acetaminophen 500 MG Tablet 1000 MG PO ×2 (04:51→10:31)
[2020-09-11 08:04] VITALS: BP 126/72; PULSE 70; RESP 16; TEMP 36.5; O2SAT 96
--- NOTE | 2020-09-11 09:44 | PCM.PN.OB ---
Subjective Subjective Patient doing well without complaints. Tolerating PO. Ambulating and voiding without difficulty. feeding well. Denies chest pain, shortness of breath, calf pain/swelling, fevers, chills, lightheadedness. Objective Data Objective Data Vital Signs: Vital Signs Temp Pulse Resp BP Pulse Ox 97.7 F L 70 16 126/72 H 96 09/11/20 08:04 09/11/20 08:04 09/11/20 08:04 09/11/20 08:04 09/11/20 08:04 Oxygen Delivery Method Room Air Weight: 159 lb Body Mass Index (BMI) 29.0 Intake & Output: Intake and Output for Last 24 Hours 09/09/20 09/10/20 09/11/20 23:59 23:59 23:59 Intake Total 110 / 110 Balance 110 / 110 Lab / Micro Data Result Diagrams: 09/10/20 04:40 Labs: Laboratory Results - last 24 hr 09/10/20 04:40: Diff Path Review Reviewed Micro: Microbiology 09/07/20 16:30 Mucosa - Nose SARS-CoV-2 Antigen (Rapid) - Final ROS Constitutional Constitutional: Reports systems reviewed and no addt'l complaints, except as documented Cardiovascular Cardiovascular: Reports systems reviewed and no addt'l complaints, except as documented Respiratory/Chest Respiratory/Chest: Reports systems reviewed and no addt'l complaints, except as documented Gastrointestinal Gastrointestinal: Reports systems reviewed and no addt'l complaints, except as documented Physical Exam Const alert, oriented x3 and no apparent distress HEENT Head and Scalp: atraumatic Resp normal respiratory effort GI soft to palpation and non-tender Inspection: incision intact, healing well and drainage (none) Bimanual Exam - Vag & Uterus: uterus non-tender Uterus Palpation: uterus fundus firm (below Umbilicus) Assessment & Plan (1) delivery delivered: COMMENT: 36 PTL twins SM LTCS vtx brch Moses/Deric (2) Postoperative anemia: COMMENT: iv iron , oral iron, repeat cbc 2 weeks PP PLAN: s/p LTCS PPD # 4 1. routine post care 2. breast feeding- support given 3. rh positive 4. rubella immune
[2020-09-11] MEDS: Senna/Docusate Sodium 1 Tablet PO (10:31)
== END 2020-09-11 10:42 | disposition home or self-care (01) | DRG 786 ==
PROVIDERS: Obstetrics & Gynecology; Admitting Provider Obstetrics & Gynecology; Visit Provider Obstetrics & Gynecology
DX: O69.81X1 Labor and delivery complicated by cord around neck, without compression, fetus 1 (principal); O60.14X0 Preterm labor third trimester with preterm delivery third trimester, not applicable or unspecified; D62 Acute posthemorrhagic anemia; O32.1XX2 Maternal care for breech presentation, fetus 2; O99.02 Anemia complicating childbirth; O30.043 Twin pregnancy, dichorionic/diamniotic, third trimester; Z3A.36 36 weeks gestation of pregnancy; Z37.2 Twins, both liveborn
CPT/HCPCS: 59025; 59050; 85014; 85018; 85025; 85027; 86850; 86900; 86901; 87426; 99218; J1756; J7120; A4216; G0378; J2405

== ENCOUNTER → 2020-09-22 09:59 | Outpatient (CLI) | payer OTHER, SELFPAY ==
[2020-09-22 09:51] VITALS: BMI 29.0
[2020-09-22 10:12] LABS: Absolute Lymphocyte Count 4.19 X10^3/uL (0.83-4.51); Absolute Neutrophil Count 5.4 X10^3/uL (2.0-7.7); Basophil# 0.08 X10^3/uL; Basophil% 0.8 % (0-1); Eosinophil# 0.14 X10^3/uL; Eosinophils% 1.3 % (0-5); Hematocrit 36.3 % (37-47); Hemoglobin 11.3 g/dL (12.0-15.0); Lymphocyte # 4.19 X10^3/ul (0.83-4.51); Lymphocyte % 39.8 % (19-41); Mean Corp Hgb Conc 31.1 g/dL (32-36); Mean Corpuscular Hgb 29.9 pg (27.0-32.0); Mean Platelet Vol. 8.5 fl (6.2-12.0); Monocyte# 0.72 X10^3/uL; Monocyte% 6.8 % (0-10); NRBC Flagged by Analyzer 0 % (0-5); Neutrophil # 5.38 X10^3/uL (2.7-7.7); Platelet Count 513 K/mm3 (150-450); RBC Distribution Width CV 15.9 % (11.6-14.6); Red Blood Count 3.78 M/mm3 (4.2-5.4); White Blood Count 10.5 K/mm3 (4.4-11.0)
== END ==
PROVIDERS: Nurse Practitioner Women's Health; Referring Provider Obstetrics & Gynecology; Visit Provider Obstetrics & Gynecology
DX: D64.9 Anemia, unspecified (principal)
CPT/HCPCS: 36415; 85025

== ENCOUNTER → 2020-10-21 | Outpatient (CLI) | payer OTHER, SELFPAY ==
[2020-10-26 10:29] LABS: HPV APTIMA, High Risk Negative (Negative)
== END | disposition home or self-care (01) ==
LOC: LABSPEC 17:06
PROVIDERS: Referring Provider Obstetrics & Gynecology; Visit Provider Obstetrics & Gynecology
DX: Z12.4 Encounter for screening for malignant neoplasm of cervix (principal)
CPT/HCPCS: 87624; 88175; G0145

== ENCOUNTER 2021-02-17 12:49 | Outpatient (RCR) | payer OTHER, SELFPAY | END 2021-03-14 23:59 | LOC: EMPH 12:49 | PROVIDERS: Visit Provider Family Medicine Geriatric Medicine | DX: Z03.818 Encounter for observation for suspected exposure to other biological agents ruled out (principal) | CPT/HCPCS: 87426 ==

== ENCOUNTER 2021-05-30 13:55 | Outpatient (CLI) | payer OTHER, SELFPAY ==
[2021-05-30 15:19] LABS: Vitamin D,25 Hydroxy 37.8 ng/mL
[2021-05-30 15:38] LABS: AST(SGOT) 14 U/L (15-37); Alanine Aminotransfer ALT/SGPT 24 U/L (13-56); Albumin, Serum 3.8 g/dL (3.2-5.0); Alkaline Phosphatase 76 U/L (45-117); Anion Gap 4 (5-15); BUN 14 mg/dL (7-18); BUN/Creat Ratio 21.1 RATIO (10-20); Calcium,Total 8.8 mg/dL (8.5-10.1); Chloride 105 mmol/L (98-107); Cholesterol 210 mg/dL (200); Creatinine, Serum 0.66 mg/dL (0.55-1.02); EST Glomerular Filtration Rate 110 mL/min (>60); Est Glom Filt Rate - Afr Amer 133 mL/min (>60); Globulin 3.7 g/dL (2.2-4.2); Glucose 88 mg/dL (74-106); High Density Lipoprotein 60 mg/dL; Protein, Total 7.5 g/dL (6.4-8.2); Sodium Level 138 mmol/L (136-145); Thyroid Stim Hormone (TSH) 1.18 uIU/mL (0.358-3.74); Triglycerides 103 mg/dL; Very Low Density Lipoprotein 21 mg/dL (5-40)
== END 2021-05-30 23:59 | disposition home or self-care (01) ==
LOC: BIMLAB 13:56
PROVIDERS: Referring Provider Internal Medicine Endocrinology, Diabetes & Metabolism; Visit Provider Internal Medicine Endocrinology, Diabetes & Metabolism
DX: E28.2 Polycystic ovarian syndrome (principal); E55.9 Vitamin D deficiency, unspecified
CPT/HCPCS: 36415; 80053; 80061; 82306; 83036; 84443

== ENCOUNTER → 2021-12-23 | Outpatient (CLI) | payer OTHER, SELFPAY ==
[2021-12-23 12:41] LABS: Progesterone Level 14.98 ng/mL (See Comment)
== END | disposition home or self-care (01) ==
LOC: LAB 11:25
PROVIDERS: Referring Provider Obstetrics & Gynecology; Visit Provider Obstetrics & Gynecology
DX: E28.2 Polycystic ovarian syndrome (principal)
CPT/HCPCS: 36415; 84144

== ENCOUNTER → 2022-01-30 | Outpatient (CLI) | payer OTHER, SELFPAY ==
[2022-01-30 12:27] LABS: Progesterone Level 48.61 ng/mL (See Comment)
== END | disposition home or self-care (01) ==
LOC: LAB 11:12
PROVIDERS: Referring Provider Nurse Practitioner Women's Health; Visit Provider Nurse Practitioner Women's Health
DX: E28.2 Polycystic ovarian syndrome (principal)
CPT/HCPCS: 36415; 84144

== ENCOUNTER → 2022-03-03 | Outpatient (CLI) | payer OTHER, SELFPAY ==
[2022-03-03 11:08] LABS: Progesterone Level < 0.21 ng/mL (See Comment)
== END | disposition home or self-care (01) ==
LOC: PAVLAB 10:11
PROVIDERS: Referring Provider Nurse Practitioner Women's Health; Visit Provider Nurse Practitioner Women's Health
DX: E28.2 Polycystic ovarian syndrome (principal)
CPT/HCPCS: 36415; 84144

== ENCOUNTER → 2022-04-18 | Outpatient (CLI) | payer OTHER, SELFPAY ==
[2022-04-18 12:02] LABS: Progesterone Level 15.15 ng/mL (See Comment)
== END | disposition home or self-care (01) ==
LOC: PAVLAB 11:07
PROVIDERS: Obstetrics & Gynecology; Referring Provider Obstetrics & Gynecology; Visit Provider Obstetrics & Gynecology
DX: E28.2 Polycystic ovarian syndrome (principal)
CPT/HCPCS: 36415; 84144

== ENCOUNTER → 2022-05-26 | Outpatient (CLI) | payer OTHER, SELFPAY ==
[2022-05-26 09:23] LABS: Progesterone Level 45.89 ng/mL (See Comment)
== END | disposition home or self-care (01) ==
LOC: PAVLAB 08:47
PROVIDERS: Referring Provider Obstetrics & Gynecology; Visit Provider Obstetrics & Gynecology
DX: E28.2 Polycystic ovarian syndrome (principal)
CPT/HCPCS: 36415; 84144

== ENCOUNTER → 2022-06-02 | Outpatient (CLI) | payer OTHER, SELFPAY ==
[2022-06-02 12:43] LABS: hCG Titer Quant., Serum 197 mIU/mL (1-3)
== END | disposition home or self-care (01) ==
LOC: LAB 11:28
PROVIDERS: Visit Provider Obstetrics & Gynecology
DX: N91.2 Amenorrhea, unspecified (principal)
CPT/HCPCS: 36415; 84702

== ENCOUNTER → 2022-06-04 | Outpatient (CLI) | payer OTHER, SELFPAY ==
[2022-06-04 10:41] LABS: hCG Titer Quant., Serum 569 mIU/mL (1-3)
== END | disposition home or self-care (01) ==
LOC: LAB 10:02
PROVIDERS: Referring Provider Obstetrics & Gynecology; Visit Provider Obstetrics & Gynecology
DX: N91.2 Amenorrhea, unspecified (principal)
CPT/HCPCS: 36415; 84702

== ENCOUNTER → 2022-06-06 | Outpatient (CLI) | payer OTHER, SELFPAY ==
[2022-06-06 11:02] LABS: T4 Free Direct 0.59 ng/dL (0.76-1.46)
[2022-06-06 11:59] LABS: hCG Titer Quant., Serum 1138 mIU/mL (1-3)
[2022-06-06 12:48] LABS: Progesterone Level 102.04 ng/mL (See Comment)
== END | disposition home or self-care (01) ==
LOC: PAVLAB 10:16
PROVIDERS: Referring Provider Obstetrics & Gynecology; Visit Provider Obstetrics & Gynecology
DX: O20.0 Threatened abortion (principal); Z31.9 Encounter for procreative management, unspecified; E28.2 Polycystic ovarian syndrome; O99.280 Endocrine, nutritional and metabolic diseases complicating pregnancy, unspecified trimester
CPT/HCPCS: 36415; 84144; 84439; 84443; 84702

== ENCOUNTER → 2022-06-29 | Outpatient (CLI) | payer OTHER, SELFPAY ==
[2022-07-03 06:06] LABS: Chlamydia By Nucleic Acid AMP Negative (Negative); Gonococcus By Nucleic Acid AMP Negative (Negative)
== END | disposition home or self-care (01) ==
LOC: LABSPEC 16:46
PROVIDERS: Referring Provider Obstetrics & Gynecology; Visit Provider Obstetrics & Gynecology
DX: O09.90 Supervision of high risk pregnancy, unspecified, unspecified trimester (principal)
CPT/HCPCS: 87086; 87088; 87491; 87591

== ENCOUNTER → 2022-07-04 | Outpatient (CLI) | payer OTHER, SELFPAY ==
[2022-07-04 11:08] LABS: Absolute Lymphocyte Count 3.38 X10^3/uL (0.83-4.51); Absolute Neutrophil Count 6.4 X10^3/uL (2.0-7.7); Basophil# 0.04 X10^3/uL; Basophil% 0.4 % (0-1); Eosinophil# 0.13 X10^3/uL; Eosinophils% 1.2 % (0-5); Hematocrit 33.9 % (37-47); Hemoglobin 11.4 g/dL (12.0-15.0); Lymphocyte # 3.38 X10^3/ul (0.83-4.51); Lymphocyte % 31.6 % (19-41); Mean Corp Hgb Conc 33.6 g/dL (32-36); Mean Corpuscular Hgb 30.6 pg (27.0-32.0); Mean Corpuscular Volume 91.1 fL (81-99); Mean Platelet Vol. 9.4 fl (6.2-12.0); Monocyte# 0.73 X10^3/uL; Monocyte% 6.8 % (0-10); NRBC Flagged by Analyzer 0 % (0-5); Neutrophil % 59.7 % (47-70); Platelet Count 346 K/mm3 (150-450); RBC Distribution Width CV 12.4 % (11.6-14.6); RBC Distribution Width SD 41.1 fl (35.1-43.9); Red Blood Count 3.72 M/mm3 (4.2-5.4); White Blood Count 10.7 K/mm3 (4.4-11.0)
[2022-07-04 11:30] LABS: ALB/GLOB Ratio 0.8 RATIO (0.9-2.4); AST(SGOT) 14 U/L (15-37); Alanine Aminotransfer ALT/SGPT 30 U/L (13-56); Alkaline Phosphatase 59 U/L (45-117); Anion Gap 8 (5-15); BUN 13 mg/dL (7-18); BUN/Creat Ratio 23.8 RATIO (10-20); Calcium,Total 8.6 mg/dL (8.5-10.1); Chloride 108 mmol/L (98-107); Creatinine, Serum 0.55 mg/dL (0.55-1.02); EST Glomerular Filtration Rate 137 mL/min (>60); Est Glom Filt Rate - Afr Amer 166 mL/min (>60); Globulin 3.6 g/dL (2.2-4.2); Glucose 100 mg/dL (74-106); Potassium 3.8 mmol/L (3.5-5.1); Protein, Total 6.6 g/dL (6.4-8.2); Sodium Level 138 mmol/L (136-145); T4 Free Direct 1.35 ng/dL (0.76-1.46); Thyroid Stim Hormone (TSH) 3.42 uIU/mL (0.358-3.74)
[2022-07-04 11:58] LABS: HIV - WCH Non-Reactive (Nonreactive); Hepatitis B Surface Antigen Non-Reactive (Nonreactive); Hepatitis C Antibody Non-Reactive (Nonreactive); Rubella IgG Reactive (Nonreactive); Syphilis Antibodies Non-reactive
== END | disposition home or self-care (01) ==
LOC: PAVLAB 10:44
PROVIDERS: Obstetrics & Gynecology; PCP Internal Medicine; Referring Provider Obstetrics & Gynecology; Visit Provider Obstetrics & Gynecology
DX: O99.280 Endocrine, nutritional and metabolic diseases complicating pregnancy, unspecified trimester (principal); E03.9 Hypothyroidism, unspecified; O09.90 Supervision of high risk pregnancy, unspecified, unspecified trimester
CPT/HCPCS: 36415; 80053; 84439; 84443; 85025; 86703; 86762; 86780; 86803; 86850; 86900; 86901; 87340

== ENCOUNTER → 2022-08-01 | Outpatient (CLI) | payer OTHER, SELFPAY ==
--- NOTE | 2022-08-01 13:58 | US_ITS ---
INDICATION: left ovarian cyst EXAMINATION: Ultrasound US OB Less Than 14 Weeks TECHNIQUE: Transabdominal pelvic ultrasound was performed. Grayscale, spectral waveform, and color flow Doppler evaluation of the adnexa. COMPARISON: LMP: 05/02/2022 FINDINGS: Uterus 13.9 cm length. Normal configuration. Gestational sac identified in the endometrial canal. Normal sac shape. Mean sac diameter 6.27 cm corresponds to estimated gestational age 12 weeks 4 days. Single pole identified within the gestational sac. [place]-rump length 6.7 cm corresponds to estimated gestational age 13 weeks 0 days. cardiac activity demonstrated at 148 bpm. Yolk sac was not visualized. Early placenta forming posterior. Right ovary: 4.0 x 2.2 x 3.2 cm. Left ovary: 4.7 x 2.5 x 2.9 cm. Simple cyst 2.2 x 1.7 x 1.9 cm. No free fluid identified. US/Init OB < 14Wks US IMPRESSION: Single live intrauterine estimated gestational age 13 weeks 0 days based on crown-rump length. 2 cm left ovarian cyst. Electronically Signed: Melissa Barton MD at 17:31 EDT ,
== END | disposition home or self-care (01) ==
LOC: OPUS 13:56
PROVIDERS: PCP Internal Medicine; Referring Provider Registered Nurse; Visit Provider Registered Nurse
DX: N83.202 Unspecified ovarian cyst, left side (principal)
CPT/HCPCS: 76801

== ENCOUNTER → 2022-08-10 | Outpatient (CLI) | payer OTHER, SELFPAY ==
[2022-08-10 09:18] LABS: Thyroid Stim Hormone (TSH) 0.92 uIU/mL (0.358-3.74)
== END | disposition home or self-care (01) ==
LOC: PAVLAB 08:38
PROVIDERS: PCP Internal Medicine; Referring Provider Internal Medicine; Visit Provider Internal Medicine
DX: O99.280 Endocrine, nutritional and metabolic diseases complicating pregnancy, unspecified trimester (principal); E03.9 Hypothyroidism, unspecified; Z3A.00 Weeks of gestation of pregnancy not specified
CPT/HCPCS: 36415; 84439; 84443

== ENCOUNTER → 2022-08-25 | Outpatient (CLI) | payer OTHER, SELFPAY | END | disposition home or self-care (01) | PROVIDERS: PCP Internal Medicine; Referring Provider Registered Nurse; Visit Provider Registered Nurse | DX: Z34.90 Encounter for supervision of normal pregnancy, unspecified, unspecified trimester (principal) | CPT/HCPCS: 36415 ==

== ENCOUNTER → 2022-09-13 | Outpatient (CLI) | payer OTHER, SELFPAY ==
--- NOTE | 2022-09-13 12:23 | US_ITS ---
STUDY: SECOND AND THIRD TRIMESTER OBSTETRICAL ULTRASOUND REASON FOR EXAM: Female, 32 years old supervision of LMP: May 02, 2022. TECHNIQUE: Transabdominal and Transvaginal TECHNICAL QUALITY: Adequate. PRIOR ULTRASOUND: Comparison is made with prior study dated August 01, 2022. FINDINGS: There is a single intrauterine fetus. The fetus is in a cephalic presentation. There is demonstrated cardiac activity with a heart rate of 138 bpm. There is a normal amniotic fluid volume. The largest amniotic fluid pocket measures 5.5 cm x 2.8 cm. The amniotic fluid index (TAHIRA) is within normal limits. The placenta is posterior in location and is not low lying. There are Grade 0 placental changes. The cervix measures 4.9 cm in length. The bilateral adnexal regions are normal. BIOMETRY: BPD: 3.97 cm: 18 weeks, 0 days HC: 15.57 cm: 18 weeks, 3 days AC: 14.22 cm: 19 weeks, 4 days FL: 2.81 cm: 18 weeks, 4 days CI: 72% FL/BPD: 71% FL/HC: FL/AC: 20% HC/AC: 1.09 age by current US: 18 weeks, 5 days. MILTON by current US: February 09, 2023. Estimated weight: 269 grams, +/- 40 grams, 37 %. Age by LMP: 19 weeks, 1 days. MILTON by LMP: February 06, 2023. ANATOMY: Gender: Male Cranium: Normal lateral ventricles. Normal choroid plexus. Normal cerebellum. Normal cisterna magna. Normal face, nose and lips. Chest: Normal 4-chamber heart. Abdomen/Pelvis: Normal diaphragm. Normal stomach. Normal abdominal wall. Normal cord insertion. Normal 3 vessel cord. Normal kidneys. Normal bladder. Spine: Normal cervical spine. Normal thoracic spine. Normal lumbar spine. Normal sacrum. Extremities: Normal bilateral upper extremities. Normal bilateral lower extremities. US/OB Anatomy Scan IMPRESSION: Single live uterine gestation with a mean gestational age of 18 weeks and 5 days. Electronically Signed: David Davidson MD at 10:32 EDT ,
== END | disposition home or self-care (01) ==
LOC: OPUS 12:21
PROVIDERS: PCP Internal Medicine; Referring Provider Registered Nurse; Visit Provider Registered Nurse
DX: O09.90 Supervision of high risk pregnancy, unspecified, unspecified trimester (principal); Z3A.00 Weeks of gestation of pregnancy not specified
CPT/HCPCS: 76805; 76817

== ENCOUNTER → 2022-11-15 | Outpatient (CLI) | payer OTHER, SELFPAY ==
[2022-11-15 08:30] LABS: Absolute Lymphocyte Count 2.21 X10^3/uL (0.83-4.51); Basophil# 0.04 X10^3/uL; Basophil% 0.4 % (0-1); Eosinophils% 2.2 % (0-5); Hematocrit 31.9 % (37-47); Hemoglobin 10.2 g/dL (12.0-15.0); Lymphocyte # 2.21 X10^3/ul (0.83-4.51); Lymphocyte % 24.3 % (19-41); Mean Corpuscular Hgb 30.5 pg (27.0-32.0); Mean Corpuscular Volume 95.5 fL (81-99); Mean Platelet Vol. 9.3 fl (6.2-12.0); Monocyte# 0.55 X10^3/uL; Monocyte% 6.1 % (0-10); NRBC Flagged by Analyzer 0 % (0-5); Neutrophil % 66.1 % (47-70); Platelet Count 288 K/mm3 (150-450); RBC Distribution Width SD 44.8 fl (35.1-43.9); Red Blood Count 3.34 M/mm3 (4.2-5.4); White Blood Count 9.1 K/mm3 (4.4-11.0)
[2022-11-15 09:12] LABS: Glucose Challenge Gest 1H 50g 128 mg/dL (70-140); T4 Free Direct 0.93 ng/dL (0.76-1.46); Thyroid Stim Hormone (TSH) 1.19 uIU/mL (0.358-3.74)
[2022-11-15 09:38] LABS: HIV - WCH Non-Reactive (Nonreactive); Syphilis Antibodies Non-reactive
== END | disposition home or self-care (01) ==
LOC: PAVLAB 08:15
PROVIDERS: PCP Internal Medicine; Referring Provider Registered Nurse; Visit Provider Registered Nurse
DX: O99.280 Endocrine, nutritional and metabolic diseases complicating pregnancy, unspecified trimester (principal); E28.2 Polycystic ovarian syndrome; Z3A.00 Weeks of gestation of pregnancy not specified
CPT/HCPCS: 36415; 82950; 84439; 84443; 85025; 86703; 86780

== ENCOUNTER 2022-12-11 00:40 | Inpatient (IN) | payer OTHER, SELFPAY ==
[2022-12-10 20:03] VITALS: BP 105/66; PULSE 72; TEMP 37; O2SAT 97
[2022-12-10 20:24] VITALS: BMI 28.9
[2022-12-10 20:51] LABS: Color, Urine Yellow (Yellow); Glucose, Dipstick Normal (Normal); Ketone-Dipstick Negative (Negative); Leukocyte Esterase-Dipstick 100 /ul (Negative); Nitrite-Dipstick Negative (Negative); Occult Blood-Urine 10 /ul (Negative); Protein-Dipstick 15 mg/dl (Negative); Specific Gravity, Urine 1.015 (1.002-1.030); Urine Bilirubin Dipstick Negative (Negative); Urine Clarity Clear (Clear); Urine Urobilinogen Normal (Normal); Urine pH 6.5 (5.0 - 8.0)
[2022-12-10] MEDS: Lactated Ringers 1,000 ML 999 ML IV (21:00)
[2022-12-10 21:45] LABS: Absolute Lymphocyte Count 4.27 X10^3/uL (0.83-4.51); Absolute Neutrophil Count 5.2 X10^3/uL (2.0-7.7); Basophil# 0.06 X10^3/uL; Basophil% 0.6 % (0-1); Eosinophil# 0.33 X10^3/uL; Hemoglobin 11.1 g/dL (12.0-15.0); Lymphocyte # 4.27 X10^3/ul (0.83-4.51); Lymphocyte % 39.2 % (19-41); Mean Corp Hgb Conc 32.6 g/dL (32-36); Mean Corpuscular Hgb 30.6 pg (27.0-32.0); Mean Corpuscular Volume 93.7 fL (81-99); Monocyte% 8.3 % (0-10); NRBC Flagged by Analyzer 0 % (0-5); Neutrophil # 5.24 X10^3/uL (2.7-7.7); Neutrophil % 48.1 % (47-70); Platelet Count 262 K/mm3 (150-450); RBC Distribution Width CV 13.1 % (11.6-14.6); RBC Distribution Width SD 45.1 fl (35.1-43.9); Red Blood Count 3.63 M/mm3 (4.2-5.4); White Blood Count 10.9 K/mm3 (4.4-11.0)
[2022-12-10 21:59] LABS: ALB/GLOB Ratio 0.6 RATIO (0.9-2.4); AST(SGOT) 16 U/L (15-37); Alanine Aminotransfer ALT/SGPT 23 U/L (13-56); Albumin, Serum 2.4 g/dL (3.2-5.0); Alkaline Phosphatase 166 U/L (45-117); Anion Gap 6 (5-15); BUN 11 mg/dL (7-18); BUN/Creat Ratio 20.7 RATIO (10-20); Calcium,Total 8.5 mg/dL (8.5-10.1); Chloride 109 mmol/L (98-107); Creatinine, Serum 0.53 mg/dL (0.55-1.02); EST Glomerular Filtration Rate 141 mL/min (>60); Est Glom Filt Rate - Afr Amer 171 mL/min (>60); Estimated Creatinine Clearance 120.52 ml/min; Globulin 3.7 g/dL (2.2-4.2); Glucose 105 mg/dL (74-106); Potassium 3.4 mmol/L (3.5-5.1); Protein, Total 6.1 g/dL (6.4-8.2); Sodium Level 137 mmol/L (136-145)
[2022-12-10] MEDS: 0.9% Saline Lock 10 ML Syringe IV (22:02)
[2022-12-10] MEDS: 0.9% Normal Saline (250mL Bag) 250 ML 15 ML IV (22:08)
[2022-12-10] MEDS: Ceftriaxone 1 GM/50 ML BAG IV (22:09)
[2022-12-10 22:15] VITALS: PULSE 64; O2SAT 99
--- NOTE | 2022-12-10 22:25 | US_ITS ---
We are attempting to reach an attending provider to discuss findings. An addendum with communication details will be sent when the communication is complete. STUDY: OBSTETRICAL ULTRASOUND - BIOPHYSICAL PROFILE REASON FOR EXAM: Female, 32 years old category II FHR tracing/decreased movement LMP: Unknown. PRIOR ULTRASOUND: 09/13/2022. TECHNIQUE: Transabdominal TECHNICAL QUALITY: Adequate. FINDINGS: There is a single intrauterine fetus. The fetus is in a cephalic presentation. There is demonstrated cardiac activity with a heart rate of 133 bpm. There is a normal amniotic fluid volume. The largest amniotic fluid pocket measures 4.6 cm. The amniotic fluid index (TAHIRA) is 13.0 cm. The placenta is posterior in location and is not low lying. There are Grade 1 placental changes. Age by LMP: 33 weeks, 5 days. MILTON by LMP: 02/06/2023 . MILTON by prior US: 02/09/2023. age by current US: 30 weeks, 0 days. MILTON by current US: 02/14/2023. BIOPHYSICAL PROFILE: Breathing Movements (FBM): 0 Gross Body Movements (GBM): 0 Tone (FT): 2 Amniotic Fluid Volume (AFV): 2 TOTAL SCORE: 4 / 8 IMPRESSION: Normal biophysical profile of 4/8. Electronically Signed: Peri Farris MD at 0:20 EDT , STUDY: SECOND AND THIRD TRIMESTER OBSTETRICAL ULTRASOUND REASON FOR EXAM: Female, 32 years old category II FHR tracing/decreased movement LMP: Unknown. TECHNIQUE: Transabdominal TECHNICAL QUALITY: Adequate. PRIOR ULTRASOUND: 09/13/2022. FINDINGS: There is a single intrauterine fetus. The fetus is in a cephalic presentation. There is demonstrated cardiac activity with a heart rate of 133 bpm. There is a normal amniotic fluid volume. The largest amniotic fluid pocket measures 4.6 cm. The amniotic fluid index (TAHIRA) is 13.0 cm. The placenta is posterior in location and is not low lying. There are Grade 1 placental changes. The cervix not well visualized. The adnexal regions are not visualized. BIOMETRY: BPD: 7.8 cm: 31 weeks, 2 days HC: 28.04 cm: 30 weeks, 5 days AC: 25.2 cm: 29 weeks, 3 days FL: 6.04 cm: 31 weeks, 3 days CI: 79.9 FL/BPD: 77.4 FL/AC: 23.9 HC/AC: 1.1 age by current US: 30 weeks, 0 days. MILTON by current US: 02/14/2023. Estimated weight: 1571 grams, +/- 236 grams, 9.9 %. MILTON by prior US: 02/09/2023. Age by LMP: 33 weeks, 5 days. MILTON by LMP: 02/06/2023. ANATOMY: Exam is limited indicated to evaluate anatomy and therefore is limited in this regard. US/Biophysical Prof W/O Non Stres IMPRESSION: Single intrauterine with ultrasound age of 30 weeks and 0 days and estimated date of delivery of 02/14/2023. Vertex presentation. Posterior placenta with no previa. Normal amniotic fluid. Normal cardiac activity. Electronically Signed: Peri Farris MD at 0:20 EDT ,
[2022-12-10 22:40] VITALS: BP 101/60; PULSE 62; TEMP 36.9
[2022-12-10] MEDS: Betamethasone/Betamethasone 30 MG/5 ML Vial 12 MG IM (22:47)
[2022-12-10 23:35] VITALS: PULSE 59; O2SAT 100
[2022-12-10 23:57] VITALS: BP 101/69; PULSE 59; RESP 18; O2SAT 100
[2022-12-10] MEDS: Magnesium Sulfate 4gm/100mL 4 GM/100 ML IV.SOLN. IV (23:57)
[2022-12-10 23:59] VITALS: BP 101/69; PULSE 68
--- NOTE | 2022-12-10 23:59 | HP.PCM.OB_ITS ---
HPI - General HPI Narrative SALLY HALE, is a 32 y/o @ 31 weeks 5 days who presents to L&D with the complaint of decreased movement. She was on the monitor for over an hour and was not found to be reactive. The tracing showed minimal variability and one late decel and a questionable prolonged decel. She is having infrequent co ntractions that per the nurse, are palpating moderate. Her cervix was examined and found to be 1.5 and 50% effaced. The patient has a history of twin section 2 years ago . BPP shows some slight movement in the feet and normal TAHIRA for a score of 4/10. However, the patient states that that there was a lot of movment right before the ultrasound. Ultrasound growth parameters show an AC of 2.5% and overall 9th% Maternal Data Information MILTON Calculator Estimated Delivery Date Method Current WG Current Estimate 02/06/23 LMP (Certain) 31w 6d PFSH PFSH Medical History ACL (anterior cruciate ligament) rupture delivery delivered Infertility PCOS (polycystic ovarian syndrome) care and examination Thyroid disorder Home Medications vitamin#30 30 mg iron-10 mg iron-folic acid 1 mg-omg3 capsule 1 cap PO DAILY 11/21/18 [History Last Taken 12/10/22 09:00] blood sugar diagnostic (True Metrix Glucose Test Strip) #100 ea 08/14/22 [Rx Last Taken Unknown] blood-glucose meter (True Metrix Glucose Meter) #1 ea 08/14/22 [Rx Last Taken Unknown] levothyroxine 100 mcg tablet 100 mcg PO DAILY #90 tabs 08/14/22 [Rx Last Taken 12/10/22 08:00] lansoprazole 30 mg capsule,delayed release (Prevacid) 30 mg PO DAILY #30 caps 11/15/22 [Rx Last Taken 12/10/22 16:00] ferrous sulfate 325 mg (65 mg iron) tablet (iron) 325 mg PO DAILY 12/10/22 [History Last Taken 12/09/22 21:00] Allergy/AdvReac Type Severity Reaction Status Date / Time No Known Allergies Allergy Verified 12/10/22 20:17 Family History Other No pertinent family history Surgical History H/O laparoscopy History of delivery S/P ACL repair Social History adopted: No household members: family number of children: 2 current occupational status: employed 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 current occupational exposures/hazards: No pets and animals: Yes pets and animals: dog(s) history of recent travel: No sexually active: Yes Smoking Status: Never smoker Electronic Cigarette Use: not used alcohol intake: never details: social substance use type: does not use caffeine: Yes Type: carbonated beverages what type of physical activity do you participate in: walking seatbelt use: always do you feel safe at home: Yes additional social history: 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 Date Name GA/Weeks Outcome Route Bth Weight [facility] Moses/Deric 36 live - Male spinal [employer] Dr. Pelletier Visit Details Expected Delivery Route/Plan RLTCS patient counseled regarding risks/benefits of trial of labor versus repeat . ACOG/uptodate education given to patient. 64 % likelihood of success per calculator TOLAC consent form signed: [] Labor Preferences- CB/BF classes: no labor support person: Brandon labor intervention preferences: R CS pain management options preferred: [] cut cord/dad catch: [] : yes PP control planned: OCP discussed possible routes of delivery and associated risks: [] special requests: [] Plans Covid status: 2 vaccines Flu vaccine: yes w employer Tdap vaccine: given Rhogam: NA LARC form signed: yes movement and labor precautions reviewed. Problem list reviewed and updated with the most current plan of care details and appropriate orders placed. Relevant counseling for the gestational age provided. Continue routine care and follow up unless otherwise noted in visit notes/problem list details OB Flowsheet Initial Weight: Not Recorded Date -?-?-?-?-?-?-?-?-?-?-?-?- EGA Weight BP Urine Prot -?-?-?-?-?-?-?-?-?-?-?-?- Glucose FHR FuHt Pres Dilation -?-?-?-?-?-?-?-?-?-?-?-?- Effaced St Visit Note 06/29/22 -?-?-?-?-?-?-?-?-?-?-?-?- 8w 2d 140 lb 4 oz 120/72 -?-?-?-?-?-?-?-?-?-?-?-?- 180 -?-?-?-?-?-?-?-?-?-?-?-?- JV- CRL consiste nt with LMP. She likely will want rpt section because 40 w eeks is on 02/06. She denies NIPT at this time. this is a clomid . Large left ovarian cyst present with septation. rpt scan next month 07/28/22 -?-?-?-?-?-?-?-?-?-?-?-?- 12w 3d 132 lb 8 oz 101/65 Nega tive -?-?-?-?-?-?-?-?-?-?-?-?- Negative 147 -?-?-?-?-?-?-?-?-?-?-?-?- LC- no vb/crampi ng. will obtain a f/u us for ovarian cyst. accepts afp 08/25/22 -?-?-?-?-?-?-?-?-?-?-?-?- 16w 3d 142 lb 108/74 Negative -?-?-?-?-?-?-?-?-?-?-?-?- Negative 145 -?-?--?-?-?-?-?-?-?-?-?-?- SM- no vb crampi ng 09/21/22 -?-?-?-?-?-?-?-?-?-?-?-?- 20w 2d 146 lb 2 oz 100/68 -?-?-?-?-?-?-?-?-?-?-?-?- 145 -?-?-?-?-?-?-?-?-?-?-?-?- SM- no vb lof go od fm no regular ctx 10/20/22 -?-?-?-?-?-?-?-?-?-?-?-?- 24w 3d 153 lb 4 oz 110/62 Nega tive -?-?-?-?-?-?-?-?-?-?--?-?- Negative 137 24 -?-?-?-?-?-?-?-?-?-?-?-?- Lc- no vb/lof/ct x. good fm. normal anatomy. 28 week labs ordered. increased heartburn and constipation. increased fiber, magnesium. pepcid bid. Lc- no vb/lof/ctx. good fm. normal anatomy. 28 week labs ordered. increased heartburn and constipation. increased fiber, magnesium. pepcid bid. plans repeat cs at 39 weeks with SM. request sent. 11/15/22 -?-?-?-?-?-?-?-?-?-?-?-?- 28w 1d 155 lb 114/62 Negative -?-?-?-?-?-?-?-?-?-?-?-?- Negative 141 28 -?-?-?-?-?-?-?-?-?-?-?-?- MH-No VB, LOF. G ood FM. 28 wk labs. Larc, tdap. GERD problematic. OTC meds not helpful. Rx sent 11/27/22 -?-?-?-?-?-?-?-?-?-?-?-?- 29w 6d 159 lb 2 oz 103/64 1+ -?-?-?-?-?-?-?-?-?-?-?-?- Negative 145 30 -?-?-?-?-?-?-?-?-?-?-?-?- SM- no vb lof go od fm no regular ctx ROS Constitutional Constitutional: Denies change in weight, fatigue, fever(s), headache(s), poor appetite or weakness Eyes Eyes: Denies blurry vision, change in vision, seeing flashes or spots in vision ENT HEENT: Denies dizziness, headache(s), loss taste/smell or sore throat Cardiovascular Cardiovascular: Denies chest pain, dizziness, dyspnea, irregular heart rhythm, leg edema, palpitations, rapid heart rate or vomiting Respiratory/Chest Respiratory/Chest: Denies chest tightness, cough, dyspnea or breast pain Gastrointestinal Gastrointestinal: Denies abdominal pain, anorexia, constipation, cramping, diarrhea, hemorrhoids, vomiting or weight changes Genitourinary Genitourinary: Denies dysuria, flank pain, genital lesions, genital pain, urinary frequency or urinary urgency Musculoskeletal Musculoskeletal: Denies back pain, difficulty walking, joint pain, limited range of motion, muscle cramps or numbness Integumentary Integumentary: Denies lesions or unusual bruising Neurologic Neurologic: Denies abnormal movements, abnormal speech, dizziness, numbness, seizure-like activity or syncope Psychiatric Psychiatric: Denies anxiety, behavioral changes, change in appetite, change in libido, cognitive impairment, confusion, depression, difficulty concentrating, hallucinations or suicidal thoughts Endocrine Endocrinology: Denies excessive sweating, polydipsia or polyuria Hematologic/Lymphatic Hematologic/Lymphatic: Denies easy bleeding, easy bruising or lymphadenopathy Allergic/Immunologic Allergic/Immunologic: Denies itchy eyes, lip swelling, seasonal rhinorrhea, rhinitis, throat swelling, tongue swelling, eczemia, wheezing or asthma Vital Signs Vital Signs Vital Signs: 12/10/22 20:03 12/10/22 20:03 12/10/22 20:03 Temperature Temperature Source Pulse Rate 72 Blood Pressure 105/66 BP Systolic 105 BP Diastolic 66 Pulse Ox 97 12/10/22 20:03 12/10/22 20:03 12/10/22 20:03 Temperature 98.6 F Temperature Source Temporal Pulse Rate Blood Pressure BP Systolic BP Diastolic Pulse Ox 97 12/10/22 22:15 12/10/22 22:15 12/10/22 22:40 Temperature Temperature Source Pulse Rate 64 Blood Pressure 101/60 BP Systolic 101 BP Diastolic 60 Pulse Ox 99 12/10/22 22:40 12/10/22 22:40 12/10/22 22:40 Temperature 98.4 F Temperature Source Temporal Pulse Rate 62 Blood Pressure BP Systolic BP Diastolic Pulse Ox 12/10/22 23:35 12/10/22 23:35 Temperature Temperature Source Pulse Rate 59 L Blood Pressure BP Systolic BP Diastolic Pulse Ox 100 Weight Weight: 158 lb 3.2 oz Body Mass Index (BMI) 28.9 Physical Exam Const alert, oriented x3, no apparent distress and healthy appearing General Appearance: cooperative; Negative for anxious HEENT normocephalic Face and Sinus: normal facial exam Eyes EOMs intact bilaterally and no scleral icterus General Eye: normal appearance of both eyes Neck full ROM and supple Lymph Lymphatic: no lymphadenopathy noted Chest Chest: abnormal inspection of the chest Resp normal respiratory effort Effort and Inspection: able to speak in complete sentences Cardio regular rate GI soft to palpation and non-tender Inspection: gravid Palpation: soft; Negative for tender Back/Spine no CVA tenderness Extremity normal to inspection, full ROM and no clubbing, cyanosis or edema General Extremity: Negative for calf tenderness or edema Skin Lesions: no lesions Rashes: no rashes Psych mental status grossly normal Labs Labs Labs: Blood Type A POSITIVE Antibody Screen NEGATIVE Hct 34.0 % (37-47) L Hgb 11.1 g/dL (12.0-15.0) L Pap Smear Negative Obstetrics Ultrasound Syphilis Total Ab Non-reactive Rubella IgG Antibody Reactive (Nonreactive) Hep Bs Antigen Non-Reactive (Nonreactive) Hepatitis C Antibody Non-Reactive (Nonreactive) Chlamydia DNA (FABIOLA) Negative (Negative) N.gonorrhoeae DNA (FABIOLA) Negative (Negative) HIV 1&2 Antibody Non-Reactive (Nonreactive) Glucose 1 Hr 50 gm 128 mg/dL (70-140) Gest Glucose Tolerance MG/DL Rhogam given: No Miscellaneous Test Assessment & Plan (1) Gastric reflux: COMMENT: Prevacid sent; failed OTC meds (2) Anemia: COMMENT: increase iron supplement repeat in 4 weeks with iron studies. (3) History of delivery, currently : COMMENT: desires Repeat C/S, RLTCS scheduled for 01/30 @ 7:30 with (4) : QUALIFIERS: Weeks of gestation: 24 weeks Qualified Code(s): Z3A.24 - 24 weeks gestation of COMMENT: normal anatomy scan. declined NIPT. Had carrier screening with previous . nl afp. (5) Supervision of high risk , antepartum: COMMENT: PRR. MILTON 02/06/23 Boy Soniya Lopes/Deric (twins) Brandon (6) Thyroid disorder in mother affecting or puerperium: COMMENT: monitored by Dr. Her. labs in August normal. Synthroid 100mcg. (7) PCOS (polycystic ovarian syndrome): COMMENT: Sees Dr Her. Was monitoring home glucose prn PLAN: Plan Plan was discussed with Dr. Rasmussen [facility] to start magnesium sulfate for neuroprotection, give celestone 12 mg IM, and deliver if has another decel collecting KB and coags now to rule out Maternal hemorrhage sips and chips only If can keep her all night will repeat the bpp in the morning.
[2022-12-11] VITALS (45 sets, daily range): BP systolic 86–119; BP diastolic 45–94; PULSE 59–97; RESP 12–20; TEMP 36.2–37.3; O2SAT 95–100
[2022-12-11] MEDS: 0.9% Saline Lock 10 ML Syringe IV ×4 (00:09→23:41)
[2022-12-11] MEDS: Magnesium Sulfate 20 GM/500 ML BAG IV (00:21)
[2022-12-11] MEDS: 0.9% Normal Saline (1000mL) 1,000 ML 150 ML IV (00:23)
[2022-12-11 00:50] LABS: Creatinine, Urine (random) < 13.00 mg/dL (NO RANGE EST.); Protein, Urine (Random) < 6.0 mg/dL (<11.9)
[2022-12-11 00:53] LABS: International Normalized Ratio 1.1; Prothrombin Time (Protime)PT. 13.8 SECONDS (11.7-14.9)
[2022-12-11 00:54] LABS: Partial Thromboplast Time 30.3 Seconds (24.1-36.2)
[2022-12-11 01:07] LABS: Fibrinogen 184 mg/dl (203-444)
[2022-12-11 01:27] LABS: Syphilis Antibodies Non-reactive
[2022-12-11] MEDS: Acetaminophen 500 MG Tablet 1000 MG PO ×4 (01:46→19:00)
[2022-12-11] MEDS: Sodium Citrate/Citric Acid 30 ML UDC PO (01:47)
[2022-12-11] MEDS: Cefazolin 2 GM in 0.9% Normal Saline (100mL Bag) 100 ML IV (02:02)
--- NOTE | 2022-12-11 02:47 | OP.PCM_ITS ---
Assessment & Plan (1) IUGR (intrauterine growth restriction) affecting care of mother: (2) Abnormal test: (3) Gastric reflux: COMMENT: Prevacid sent; failed OTC meds (4) Anemia: COMMENT: increase iron supplement repeat in 4 weeks with iron studies. (5) History of delivery, currently : COMMENT: desires Repeat C/S, RLTCS scheduled for 01/30 @ 7:30 with SM (6) Thyroid disorder in mother affecting or puerperium: COMMENT: monitored by Dr. Her. labs in August normal. Synthroid 100mcg. (7) Supervision of high risk , antepartum: COMMENT: PRR. MILTON 02/06/23 Boy Soniya TERRA Kyleen/Deric (twins) Brandon (8) : QUALIFIERS: Weeks of gestation: 24 weeks Qualified Code(s): Z3A.2 4 - 24 weeks gestation of COMMENT: normal anatomy scan. declined NIPT. Had carrier screening with previous . nl afp. (9) PCOS (polycystic ovarian syndrome): COMMENT: Sees Dr Her. Was monitoring home glucose prn Maternal Data Information MILTON Calculator Estimated Delivery Date Method Current WG Current Estimate 02/06/23 LMP (Certain) 31w 6d Final MILTON: 02/06/23 Final MILTON Source: LMP Gestational age: 31 weeks 6 days Alsey Doctor Who Attended Delivery: Sapphire Mcmullen Details Operative Information Date of Procedure: 12/11/22 Pre-Operative Diagnosis: 32 y/o @ 31 weeks 6 days, decreased movement, bpp 4/10, late decelerations and minimal to absent heart rate variability Post-Operative Diagnosis: 32 y/o @ 31 weeks 6 days, decreased movement, bpp 4/10, late decelerations and minimal to absent heart rate variability Classification: A[place] Procedure Type: low transverse nut roaster #1: Yisel Castaneda Type of Anesthesia: Spinal Anesthesiologist: Varun Brown Antibiotic Given: Ancef 2 grams IV x1 Estimated Blood Loss: 500cc Findings Description of Procedure: Procedure: The patient was brought to the operating room , Spinal anesthesia was obtained and found to be adequate. She was prepped and draped in the normal sterile fashion and was placed in a dorsal supine position with a leftward tilt. Pfannenstiel skin incision was made with a scalpel and carried through to the underlying layers. The fascia was nicked in the midline and extended laterally using Steel scissors. The anterior aspect of the fascia was grasped with Mirlande clamps and the underlying rectus muscles dissected off using the Metzenbaum scissors. The inferior aspect the fascia was also grasped with Mirlande clamps and the underlying rectus muscle dissected off with the Metzenbaum scissors. The rectus muscles were in the midline. Peritoneum was entered sharply. The uterus was identified and a bladder blade was inserted into the abdomen. Bladder flap was created off the uterus using Metzenbaum scissors. A transverse incision was made with a scalpel and extended laterally manually. The infant's head was grasped with the help of my physician assistant and fundal pressure the infant was delivered through the uterine incision without difficulty. The mouth and nares were bulb suctioned. After a 30 second delay the cord was clamped and cut. The end was handed off to the awaiting fire sprinkler inspector for routine assessment. Placenta was delivered manually without difficulty. The placenta was noted to be calcified more than what would be typical at the current gestational age. The uterus was exteriorized and cleared of all clots and debris. Incision was closed with an 0 Vicryl suture in a running locked fashion. Second layer of 1-0 monocryl suture was used in imbricating manner to create excellent closure and hemostasis. There was noted to be stringy guitar string like adhesions posterior to the uterus from the fundus to the cul-de-sac, likely consistent with endometriosis. The uterus was returned to the abdomen. The gutters were cleared of all clots and debris. The peritoneum was closed in a pursestring pattern using a 3-0 Vicryl suture. This muscle was reapproximated with a 3-0 Vicryl. The fascia was closed with an PDS stratafix suture. Subcutaneous tissue layer was closed using a plain gut suture. The skin was closed with a 4-0 Monocryl subcuticular stitch. The skin was also sealed with surgical glue. The patient tolerated the procedure well sponge lap and needle counts were correct at each tissue closure plane and the patient is now being brought to the recovery room in stable condition. infant scores are pending while resuscitation is taking place and will be updated separately Presentation: Positive for Vertex Amniotic Membrane Rupture Type: Artificial Amniotic Fluid Description: Clear Placental Delivery Description: Manual Removal Placenta Disposition: Sent to Pathology Cord Vessel Description: 3 Vessels Cord Entanglement: None Infant A Gender: Male Delayed Cord Clamping: Yes Complications Risks of Surgery Discussed w/Patient: Bleeding, Anesthesia Risks, Infection, Need for Future C-Sections and Injury to surrounding structure(s) including bowel and bladder Complications: none Multi Select Codes Urinary/Genital Urinary/Genital CPT Codes: 34247 Delivery global pkg
--- NOTE | 2022-12-11 02:55 | PCM.DC ---
Discharge Instructions Diet Discharge Diet: No restrictions Activity Discharge Activity: May Not Drive (for 2 weeks or while taking narcotic pain medications.), May Shower and May Take a Tub Bath (in 7 days.) May resume sexual activity in: 4-6 weeks Weight Bearing Status: Full weight bearing Lifting Restrictions: 20 pounds Dressing / Incision Call your doctor if your incision/area has: Continuous Slow Oozing, Sudden Increased Bleeding, Increased Pain/ Swelling, Increased Redness and Foul Smelling Discharge Call your doctor if you observe: Fever of 101 or Higher and Using more than 1 pad per hour Suture Line Care: Avoid Pulling/Pushing and Avoid Pinching/Bending Cleanse incision/area with: Soap & Water and Keep Dressing Clean & Dry Follow Up Care Please Follow Up With: Malika Crooks DO When: Call [phone] to make an appointment for an incision check in 1-2 weeks. Test Results: Test results from this visit will be discussed in further detail at your follow-up appointment, if applicable. Discharge Plan Admission Admit Date/Time: 12/11/22 00:40 Attending Provider: Malika Crooks Primary Care Provider: Vi Mendes Discharge Orders/Prescriptions Prescriptions: No Action vitamin#30 30 mg iron-10 mg iron-folic acid 1 mg-omg3 capsule 30 mg iron-10 mg iron-1 mg capsule 1 cap PO DAILY (DME) blood-glucose meter [True Metrix Glucose Meter] [facility] [place] [facility] See Rx Instructions .Route Qty: 1 0RF Rx Instructions: As directed (DME) True Metrix Glucose Test Strip Strip See Rx Instructions .Route Qty: 100 5RF Rx Instructions: As directed levothyroxine 100 mcg tablet 100 mcg PO DAILY Qty: 90 2RF lansoprazole [Prevacid] 30 mg capsule,delayed release(DR/EC) 30 mg PO DAILY Qty: 30 3RF ferrous sulfate [iron] 325 mg (65 mg iron) tablet 325 mg PO DAILY Referrals / Follow Up: Vi Mendes MD [Primary Care Provider] -
[2022-12-11] MEDS: Lactated Ringers 1,000 ML 100 ML IV (03:00)
[2022-12-11] MEDS: Oxytocin 15 Units/NS 250ml 15 UNITS/250 ML IV.SOLN 83 UNITS IV (03:12)
[2022-12-11] MEDS: Ketorolac 30 MG/ML Syringe IV ×4 (04:02→23:40)
[2022-12-11] MEDS: Methylergonovine 0.2 MG/ML Ampul IM (04:27)
[2022-12-11] MEDS: Carboprost Tromethamine 250 MCG/ML Ampul IM (05:33)
[2022-12-11 05:58] LABS: Absolute Lymphocyte Count 1.84 X10^3/uL (0.83-4.51); Absolute Neutrophil Count 11.9 X10^3/uL (2.0-7.7); Basophil# 0.03 X10^3/uL; Basophil% 0.2 % (0-1); Eosinophil# 0.01 X10^3/uL; Eosinophils% 0.1 % (0-5); Hematocrit 33.4 % (37-47); Hemoglobin 11.4 g/dL (12.0-15.0); Lymphocyte # 1.84 X10^3/ul (0.83-4.51); Mean Corp Hgb Conc 34.1 g/dL (32-36); Mean Corpuscular Hgb 31.7 pg (27.0-32.0); Mean Corpuscular Volume 92.8 fL (81-99); Mean Platelet Vol. 8.8 fl (6.2-12.0); Monocyte% 1.4 % (0-10); NRBC Flagged by Analyzer 0 % (0-5); Neutrophil % 84.2 % (47-70); Platelet Count 274 K/mm3 (150-450); RBC Distribution Width SD 44.1 fl (35.1-43.9); White Blood Count 14.1 K/mm3 (4.4-11.0)
[2022-12-11] MEDS: Levothyroxine 100 MCG Tablet PO (06:25)
--- NOTE | 2022-12-11 07:15 | NURSING ---
bedside report given to Bogdan Brown RN and Madan Salvador RN who are assuming care of pt at this time
--- NOTE | 2022-12-11 08:20 | NURSING ---
all late entry charting on this pt completed late due to pt care, RN at bedside continuously with pt since admission at 0037
[2022-12-11] MEDS: Ondansetron 4 MG/2 ML Vial IV (11:33)
[2022-12-11] MEDS: Senna/Docusate Sodium 1 Tablet PO (11:41)
[2022-12-11] MEDS: Pantoprazole Sodium 40 MG Tablet PO (11:41)
[2022-12-11] MEDS: Ferrous Sulfate 325 MG Tablet PO (13:48)
--- NOTE | 2022-12-11 16:40 | NURSING ---
Duramorph protocol for 12 hours was completed today at 1530, and orders were entered late. This was marked as complete by this RN at 1630 (patients Csection was at 0230 today).
[2022-12-11] MEDS: Enoxaparin 40 MG/0.4 ML Syringe SC (18:12)
[2022-12-11] MEDS: Influenza Virus Vac Quad 23-24 60 MCG/0.5 ML SYRINGE IM (18:16)
[2022-12-12] MEDS: Acetaminophen 500 MG Tablet 1000 MG PO ×2 (01:34→08:15)
[2022-12-12 01:35] VITALS: BP 91/46; PULSE 60; RESP 16; TEMP 36.5; O2SAT 97
[2022-12-12] MEDS: Levothyroxine 100 MCG Tablet PO (05:40)
[2022-12-12] MEDS: Naproxen 500 MG Tablet PO (05:40)
[2022-12-12 05:56] LABS: Hematocrit 26.7 % (37-47); Hemoglobin 8.6 g/dL (12.0-15.0); Mean Corp Hgb Conc 32.2 g/dL (32-36); Mean Corpuscular Hgb 30.5 pg (27.0-32.0); Mean Corpuscular Volume 94.7 fL (81-99); Mean Platelet Vol. 8.7 fl (6.2-12.0); Platelet Count 275 K/mm3 (150-450); RBC Distribution Width CV 13.2 % (11.6-14.6); RBC Distribution Width SD 45.4 fl (35.1-43.9); Red Blood Count 2.82 M/mm3 (4.2-5.4); White Blood Count 13.2 K/mm3 (4.4-11.0)
--- NOTE | 2022-12-12 07:18 | PCM.PN.OB ---
Subjective Subjective Patient doing well without complaints, sitting in bed pumping. Tolerating PO. Ambulating and voiding without difficulty. Feeding well. Denies chest pain, shortness of breath, calf pain/swelling, fevers, chills, lightheadedness. Objective Data Objective Data Vital Signs: Vital Signs Temp Pulse Resp BP Pulse Ox O2 Del Method 97.7 F L 60 16 91/46 L 97 Room Air 12/12/22 01:35 12/12/22 01:35 12/12/22 01:35 12/12/22 01:35 12/12/22 01:35 12/12/22 01:35 Oxygen Delivery Method Room Air Weight: 158 lb 3.2 oz Body Mass Index (BMI) 28.9 Intake & Output: Intake and Output for Last 24 Hours 12/10/22 12/11/22 12/12/22 23:59 23:59 23:59 Intake Total 1066.92 / 1066.92 2271.41 / 2271.41 Output Total 3339 / 3339 Balance 1066.92 / 1066.92 -1067.59 / -1067.59 Lab / Micro Data Attestation: I reviewed the patient's lab results. Lab results narrative: Asymptomatic-to receive IV Venofer prior to D/C 12/12/22 05:45 12/10/22 21:00 Labs: Laboratory Results - last 24 hr 12/12/22 05:45: WBC 13.2 H, RBC 2.82 L, Hgb 8.6 L, Hct 26.7 L, MCV 94.7, MCH 30.5, MCHC 32.2 D, RDW Std Deviation 45.4 H, RDW Coeff of Sam 13.2, Plt Count 275, MPV 8.7 ROS Constitutional Constitutional: Reports systems reviewed and no addt'l complaints, except as documented; Denies anorexia or headache(s) Cardiovascular Cardiovascular: Reports systems reviewed and no addt'l complaints, except as documented; Denies dizziness, dyspnea, nausea or tachypnea Respiratory/Chest Respiratory/Chest: Reports systems reviewed and no addt'l complaints, except as documented; Denies cough, dyspnea, shortness of breath at rest or tachypnea Gastrointestinal Gastrointestinal: Reports systems reviewed and no addt'l complaints, except as documented; Denies abdominal pain, constipation or nausea Genitourinary Genitourinary: Reports systems reviewed and no addt'l complaints, except as documented; Denies burning urination, difficulty urinating, dysuria, urinary frequency or urinary incontinence Musculoskeletal Musculoskeletal: Reports systems reviewed and no addt'l complaints, except as documented Integumentary Integumentary: Reports systems reviewed and no addt'l complaints, except as documented Neurologic Neurologic: Reports systems reviewed and no addt'l complaints, except as documented; Denies abnormal speech, dizziness or headache(s) Psychiatric Psychiatric: Reports systems reviewed and no addt'l complaints, except as documented Endocrine Endocrinology: Reports systems reviewed and no addt'l complaints, except as documented Hematologic/Lymphatic Hematologic/Lymphatic: Reports systems reviewed and no addt'l complaints, except as documented Physical Exam Const alert, oriented x3 and no apparent distress Neck full ROM Resp normal respiratory effort, normal air movement and no retractions Effort and Inspection: able to speak in complete sentences and symmetric chest movement GI soft to palpation Inspection: incision intact Bladder / Kidney Exam: bladder normal to palpation Uterus Palpation: uterus fundus firm Extremity normal to inspection and full ROM Psych mental status grossly normal, thought process normal and cooperative Assessment & Plan (1) Abnormal test: (2) IUGR (intrauterine growth restriction) affecting care of mother: (3) Gastric reflux: COMMENT: Prevacid sent; failed OTC meds (4) Anemia: COMMENT: increase iron supplement repeat in 4 weeks with iron studies. (5) History of delivery, currently : COMMENT: desires Repeat C/S, RLTCS scheduled for 01/30 @ 7:30 with SM (6) Thyroid disorder in mother affecting or puerperium: COMMENT: monitored by Dr. Her. labs in August normal. Synthroid 100mcg. (7) Supervision of high risk , antepartum: COMMENT: PRR. MILTON 02/06/23 Boy Soniya Lopes/Deric (twins) Brandon (8) : QUALIFIERS: Weeks of gestation: 24 weeks Qualified Code(s): Z3A.24 - 24 weeks gestation of COMMENT: normal anatomy scan. declined NIPT. Had carrier screening with previous . nl afp. (9) delivery delivered: COMMENT: 31 week JV- boy- [facility] main PLAN: s/p LTCS PPD # 1. routine post care 2. breast feeding- support given 3. rh positive 4. rubella immune 5. IV venofer prior to D/C 6. D/C home Charges/Coding Multi Select Codes Urinary/Genital Urinary/Genital CPT Codes: No Charge
[2022-12-12 08:15] VITALS: BP 94/57; PULSE 63; RESP 17; TEMP 36.9; O2SAT 100
[2022-12-12 08:37] LABS: Kleihauer-Betke Negative
[2022-12-12] MEDS: Iron Sucrose Complex 200 MG in 0.9% Normal Saline (100mL Bag) 100 ML 220 MG IV (09:22)
[2022-12-12] MEDS: 0.9% Saline Lock 10 ML Syringe IV (09:24)
[2022-12-12] MEDS: Senna/Docusate Sodium 1 Tablet PO (09:27)
== END 2022-12-12 11:10 | disposition home or self-care (01) | DRG 786 ==
LOC: WPOUT 00:43 → WP 00:43
PROVIDERS: Admitting Provider Obstetrics & Gynecology; PCP Internal Medicine; Visit Provider Obstetrics & Gynecology
DX: O76 Abnormality in fetal heart rate and rhythm complicating labor and delivery (principal); O60.14X0 Preterm labor third trimester with preterm delivery third trimester, not applicable or unspecified; O36.5930 Maternal care for other known or suspected poor fetal growth, third trimester, not applicable or unspecified; E28.2 Polycystic ovarian syndrome; K21.9 Gastro-esophageal reflux disease without esophagitis; O99.02 Anemia complicating childbirth; O99.62 Diseases of the digestive system complicating childbirth; O99.284 Endocrine, nutritional and metabolic diseases complicating childbirth; Z37.0 Single live birth; Z3A.31 31 weeks gestation of pregnancy; O34.211 Maternal care for low transverse scar from previous cesarean delivery
CPT/HCPCS: 59025; 59050; 76816; 76819; 80053; 81002; 82570; 84156; 85025; 85027; 85384; 85460; 85610; 85730; 86780; 86850; 86900; 86901; 87086; 87088; 99221; J1756; J7030; J7050; J7120; 90686; A4216; G0378; J0702; J2405

== ENCOUNTER → 2024-01-29 | Outpatient (CLI) | payer BC, SELFPAY ==
[2024-01-29 16:00] LABS: Absolute Lymphocyte Count 4.23 X10^3/uL (0.83-4.51); Absolute Neutrophil Count 8.7 X10^3/uL (2.0-7.7); Basophil# 0.07 X10^3/uL; Basophil% 0.5 % (0-1); Eosinophil# 0.19 X10^3/uL; Eosinophils% 1.4 % (0-5); Hematocrit 40.4 % (37-47); Hemoglobin 13.8 g/dL (12.0-15.0); Lymphocyte # 4.23 X10^3/ul (0.83-4.51); Lymphocyte % 30.3 % (19-41); Mean Corp Hgb Conc 34.2 g/dL (32-36); Mean Corpuscular Hgb 30.4 pg (27.0-32.0); Mean Platelet Vol. 9.4 fl (6.2-12.0); Monocyte# 0.75 X10^3/uL; Monocyte% 5.4 % (0-10); NRBC Flagged by Analyzer 0 % (0-5); Neutrophil # 8.71 X10^3/uL (2.7-7.7); Neutrophil % 62.2 % (47-70); Platelet Count 409 K/mm3 (150-450); RBC Distribution Width CV 12.8 % (11.6-14.6); RBC Distribution Width SD 41.8 fl (35.1-43.9); Red Blood Count 4.54 M/mm3 (4.2-5.4)
[2024-01-29 16:42] LABS: ALB/GLOB Ratio 1.1 RATIO (0.9-2.4); AST(SGOT) 9 U/L (15-37); Alanine Aminotransfer ALT/SGPT 20 U/L (13-56); Albumin, Serum 4.1 g/dL (3.2-5.0); Alkaline Phosphatase 74 U/L (45-117); Anion Gap 7 (5-15); BUN 15 mg/dL (7-18); BUN/Creat Ratio 22.1 RATIO (10-20); Calcium,Total 9.3 mg/dL (8.5-10.1); Chloride 106 mmol/L (98-107); Creatinine, Serum 0.68 mg/dL (0.55-1.02); EST Glomerular Filtration Rate 106 mL/min (>60); Est Glom Filt Rate - Afr Amer 128 mL/min (>60); Globulin 3.8 g/dL (2.2-4.2); Glucose 89 mg/dL (74-106); Potassium 3.7 mmol/L (3.5-5.1); Protein, Total 7.9 g/dL (6.4-8.2); Sodium Level 136 mmol/L (136-145); T4 Free Direct 0.89 ng/dL (0.76-1.46)
[2024-01-29 16:52] LABS: hCG Titer Quant., Serum 3963 mIU/mL (1-3)
[2024-02-01 01:07] LABS: Anti-Cardiolipin Ab, IgG, Qn < 9 GPL U/mL (0-14); Anti-Cardiolipin Ab, IgM, Qn 38 MPL U/mL (0-12); Beta-2-Glycoprotein I IgA <9 (0-25); Beta-2-Glycoprotein I IgG <9 (0-20); Beta-2-Glycoprotein I IgM <9 (0-32); Dilute Russell Viper Venom 37.3 sec (0.0-47.0); Interpretation Comment: (.); PTT-LA 34.8 sec (0.0-43.5); Thrombin Time 18.1 sec (0.0-23.0); dPT Confirm Ratio 1.09 Ratio (0.00-1.34)
== END | disposition home or self-care (01) ==
LOC: LAB 15:35
PROVIDERS: PCP Internal Medicine; Referring Provider Internal Medicine Endocrinology, Diabetes & Metabolism; Visit Provider Obstetrics & Gynecology
DX: O99.282 Endocrine, nutritional and metabolic diseases complicating pregnancy, second trimester (principal); N96 Recurrent pregnancy loss; Z3A.24 24 weeks gestation of pregnancy; E28.2 Polycystic ovarian syndrome; E06.3 Autoimmune thyroiditis; O99.892 Other specified diseases and conditions complicating childbirth
CPT/HCPCS: 36415; 80053; 84439; 84443; 84702; 85025; 86146; 86147

== ENCOUNTER → 2024-02-01 | Outpatient (CLI) | payer BC, SELFPAY ==
[2024-02-01 11:03] LABS: hCG Titer Quant., Serum 7595 mIU/mL (1-3)
== END | disposition home or self-care (01) ==
LOC: LAB 08:51
PROVIDERS: PCP Internal Medicine; Referring Provider Obstetrics & Gynecology; Visit Provider Obstetrics & Gynecology
DX: O20.0 Threatened abortion (principal)
CPT/HCPCS: 36415; 84702

== ENCOUNTER → 2024-02-11 | Outpatient (CLI) | payer BC, SELFPAY ==
--- NOTE | 2024-02-11 14:30 | US_ITS ---
STUDY: FIRST TRIMESTER OBSTETRICAL ULTRASOUND REASON FOR EXAM: Female, 33 years old viability LMP: 11/29/2023 TECHNIQUE: Transabdominal TECHNICAL QUALITY: Adequate. PRIOR ULTRASOUND: None. FINDINGS: There is visualization of a single gestational sac in a normal intrauterine position. The mean sac diameter (MSD) measures 20 mm, indicating an estimated gestational age (EGA) of 6 weeks, 6 days. The gestational sac shape is within normal limits. There is a visualized yolk sac. The yolk sac measures 3 mm. The placenta is non-visualized. There is visualization of a live embryo. The crown-rump length (CRL) measures 11 mm, indicating an estimated gestational age (EGA) of 7 weeks, 2 days. There is demonstrated cardiac activity with a heart rate of 135 bpm. The estimated gestation age (EGA) by LMP is 10 weeks, 4 days. The estimated date of delivery ([place]) by LMP is 09/04/2024. The estimated gestation age (EGA) by US is 7 weeks, 1 days. The estimated date of delivery ([place]) by US is 09/28/2024. The uterus measures 10.8 x 6.2 x 7.0 cm. There is no demonstrated uterine fibroid. The cervix is closed. The right ovary measures 3.3 x 2.5 x 2.8 cm. There is no right ovarian cyst. There is no visualized right adnexal mass or complex lesion. The left ovary measures 3.8 x 1.9 x 2.4 cm. There is no left ovarian cyst. There is no visualized left adnexal mass or complex lesion. There is no fluid in the cul de sac. US/Init OB < 14Wks US IMPRESSION: Living intrauterine of 7 weeks 1 day as described above. Electronically Signed: Josep Sánchez MD at 13:18 EST ,
== END | disposition home or self-care (01) ==
PROVIDERS: PCP Internal Medicine; Referring Provider Obstetrics & Gynecology; Visit Provider Obstetrics & Gynecology
DX: O20.0 Threatened abortion (principal); Z3A.00 Weeks of gestation of pregnancy not specified
CPT/HCPCS: 76801

== ENCOUNTER → 2024-02-28 | Outpatient (CLI) | payer BC, SELFPAY ==
[2024-02-28 16:01] LABS: Absolute Lymphocyte Count 3.03 X10^3/uL (0.83-4.51); Absolute Neutrophil Count 9.1 X10^3/uL (2.0-7.7); Basophil# 0.03 X10^3/uL; Basophil% 0.2 % (0-1); Eosinophil# 0.06 X10^3/uL; Eosinophils% 0.5 % (0-5); Hematocrit 36.4 % (37-47); Hemoglobin 12.2 g/dL (12.0-15.0); Lymphocyte # 3.03 X10^3/ul (0.83-4.51); Lymphocyte % 23.4 % (19-41); Mean Corp Hgb Conc 33.5 g/dL (32-36); Mean Corpuscular Volume 89.4 fL (81-99); Mean Platelet Vol. 9.9 fl (6.2-12.0); Monocyte# 0.66 X10^3/uL; Monocyte% 5.1 % (0-10); NRBC Flagged by Analyzer 0 % (0-5); Neutrophil # 9.13 X10^3/uL (2.7-7.7); Neutrophil % 70.5 % (47-70); Platelet Count 509 K/mm3 (150-450); RBC Distribution Width CV 12.6 % (11.6-14.6); RBC Distribution Width SD 40.9 fl (35.1-43.9); Red Blood Count 4.07 M/mm3 (4.2-5.4)
[2024-02-28 16:34] LABS: T4 Free Direct 1.07 ng/dL (0.76-1.46)
[2024-02-28 16:57] LABS: HIV - WCH Non-Reactive (Nonreactive); Hepatitis B Surface Antigen Non-Reactive (Nonreactive); Hepatitis C Antibody Non-Reactive (Nonreactive); Rubella IgG Reactive (Nonreactive); Syphilis Antibodies Non-reactive
[2024-03-03 21:07] LABS: Chlamydia By Nucleic Acid AMP Negative (Negative); Gonococcus By Nucleic Acid AMP Negative (Negative)
[2024-03-06 14:08] LABS: HPV APTIMA, High Risk Negative (Negative)
== END | disposition home or self-care (01) ==
PROVIDERS: PCP Internal Medicine; Referring Provider Advanced Practice Midwife; Visit Provider Advanced Practice Midwife
DX: O09.90 Supervision of high risk pregnancy, unspecified, unspecified trimester (principal); Z3A.00 Weeks of gestation of pregnancy not specified
CPT/HCPCS: 36415; 84439; 84443; 85025; 86703; 86762; 86780; 86803; 86850; 86900; 86901; 87086; 87088; 87340; 87491; 87591; 87624; 88175; G0145

== ENCOUNTER 2024-03-01 09:26 | Emergency (ER) | payer BC, SELFPAY ==
[2024-03-01 09:28] VITALS: BP 105/76; PULSE 130; RESP 18; TEMP 37.2; O2SAT 99; BMI 27.3
--- NOTE | 2024-03-01 10:10 | US_ITS ---
STUDY: FIRST TRIMESTER OBSTETRICAL ULTRASOUND REASON FOR EXAM: Female, 33 years old Bleeding LMP: Unknown. TECHNIQUE: Transvaginal TECHNICAL QUALITY: Adequate. PRIOR ULTRASOUND: February 11, 2024. FINDINGS: There is no demonstrated intrauterine gestational sac. There is 2.1 cm heterogeneous thickening of the endometrium . There is no demonstrated yolk sac. The placenta is non-visualized. There is no demonstrated embryo ( pole). The uterus measures 9.8 x 7.3 x 6.3 cm. There is no demonstrated uterine fibroid. The cervix is closed. The right ovary measures 3.7 x 2.8 x 2.4 cm. There is no right ovarian cyst. There is no visualized right adnexal mass or complex lesion. The left ovary measures 4.0 x 2.2 x 1.9 cm. There is no left ovarian cyst. There is no visualized left adnexal mass or complex lesion. There is no fluid in the cul de sac. US/Transvaginal w/Preg US IMPRESSION: Early loss. Heterogeneous thickening of the endometrium with potential retained products of conception. Electronically Signed: Delvin Jenkins MD at 11:10 EST ,
--- NOTE | 2024-03-01 10:22 | ED.VIS.FEGU ---
HPI HPI - Female History of Present Illness Chief Complaint: Vag Bld, Preg Informant: patient Pain Pain: Positive for Pelvic Pain (Cramping but now resolved.) Onset: Today Timing: Intermittent Quality: Positive for Cramping Current Severity: Gone Maximum Severity: Mild Bleeding Issue: Positive for Vaginal bleeding and Passing clots; Negative for Passing tissue Onset: Today Context: Sudden Onset Current Severity: Similar to period Associated Symptoms Associated Symptoms: Negative for Dysuria, Frequency or Urgency Test: Positive Sexually: Positive for Active P: 3 (Twin ) Ab: 1 (Miscarriage) Narrative Narrative: 33-year-old female states she has had 4 pregnancies she has 3 true children with 1 of those being a twin and 1 prior miscarriage. States that she is approximately [address] Tali Pelletier. And this morning started having vaginal bleeding and mild cramping. Cramping is resolved. She said there was a fair amount of blood with clots. She did not see any tissue. Her due date was set to be 09/27/2024. Currently she is pain-free. She denies any dysuria. Prior similar symptoms: No Recent Illness/Hospitalization: No PFSH PFS Medical History Thyroid disorder in mother affecting or puerperium Patricia's thyroiditis IUGR (intrauterine growth restriction) affecting care of mother History of pre-term labor PCOS (polycystic ovarian syndrome) delivery delivered Infertility Thyroid disorder ACL (anterior cruciate ligament) rupture Home Medications ?Medication ?Instructions ?Recorded ?Last Taken ?Type vitamin#30 30 mg iron-10 1 cap PO DAILY 11/21/18 12/10/22 09:00 History mg iron-folic acid 1 mg-omg3 capsule levothyroxine 88 mcg tablet 88 mcg PO QDAY #90 tabs 01/29/24 Unknown Rx enoxaparin 40 mg/0.4 mL 40 mg (0.4 mL) subcut QDAY 30 days 02/01/24 Unknown Rx subcutaneous syringe (Lovenox) #12 mL ondansetron 4 mg disintegrating 4 mg PO Q4H PRN nausea and 02/07/24 Unknown Rx tablet vomiting #60 tabs Allergy/AdvReac Type Severity Reaction Status Date / Time No Known Allergies Allergy Verified 03/01/24 09:28 Family History Other No pertinent family history Surgical History S/P ACL repair History of delivery, currently History of delivery H/O laparoscopy Social History adopted: No household members: family number of children: 3 current occupational status: employed 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 current occupational exposures/hazards: No pets and animals: Yes pets and animals: dog(s) history of recent travel: No sexually active: Yes Smoking Status: Never smoker Electronic Cigarette Use: not used alcohol intake: current details: social- not while substance use type: does not use well-balanced diet: daily or most days caffeine: Yes (occasional) Type: carbonated beverages eating out: 1-3 times/week during the past year weight has: remained stable what type of physical activity do you participate in: walking and weight training frequency: 5-6 times per week duration: 15-30 minutes/day giovanny/alevism: Sikh seatbelt use: always do you feel safe at home: Yes additional social history: Brandon- [employer] at [employer] Patient works at [employer] ROS ROS ED ROS Narrative Denies recent illness. Constitutional Constitutional ED: Denies chills or fever(s) Eyes Eyes: Denies blurry vision ENT ENT ED: Denies ear pain Cardiovascular Cardiovascular: Denies chest pain Respiratory/Chest Respiratory/Chest: Denies cough or dyspnea Gastrointestinal Gastrointestinal: Denies abdominal pain Genitourinary Genitourinary ED: Denies dysuria or hematuria Musculoskeletal Musculoskeletal: Denies arthralgias or myalgias Integumentary Denies abscess or Abrasions Neurologic Neurologic: Denies headache(s) Psychiatric Psychiatric: Denies anxiety Endocrine Endocrinology: Denies heat intolerance Hematologic/Lymphatic Hematologic/Lymphatic: Denies easy bleeding or easy bruising Allergic/Immunologic Allergic/Immunologic ED: Denies mouth swelling, tongue swelling or urticaria EXAM Physical Exam Narrative Exam Narrative: 33-year-old female vital signs are stable afebrile. She is tachycardic but she is very anxious. H EENT exam pupils are reactive light. Moist mucous members. Lungs clear to auscultation. Heart tachycardic rate about 115. Abdomen is soft, nontender, nondistended, normal bowel sounds without peritoneal signs. Patient is moving all 4 extremities. Calves are nontender without edema. Neurologically she is awake alert no focal motor deficits. Const Vital Signs: 03/01/24 09:28 03/01/24 11:40 Temperature 98.9 F Temperature Source Oral Pulse Rate 130 H 64 Respiratory Rate 18 18 Blood Pressure 105/76 134/78 H Blood Pressure Mean 85 96 Pulse Ox 99 98 Oxygen Delivery Method Room Air Room Air Positive well nourished and well developed; Negative for obese, cachectic, contractures or unkempt General Appearance ED: well developed and NAD; Negative for unkempt, cachectic, contractures or pallor Nutritional Appearance: Negative for cachectic or obese HEENT Reports moist mucous membranes Eyes PERRL and EOMs intact bilaterally Neck no lymphadenopathy, supple and no JVD Chest Wall inspection of chest normal and palpation of chest normal Resp normal respiratory effort and clear to auscultation bilaterally Auscultation: Negative for rales, rhonchi, wheezes or diminished lung sounds Cardio regular rhythm, S1 normal heart sound, no murmurs and no JVD; Negative for regular rate Rate: tachycardic GI normal to inspection, nondistended, normoactive bowel sounds, soft to palpation, non-tender, non-distended and no masses Back/Spine no CVA tenderness Extremity normal to inspection and full ROM General Extremety ED: Negative for edema or tenderness General Extremity: Negative for edema Neuro oriented x3 and CN's II-XII intact bilaterally Sensorium / Orientation: alert, oriented to person, oriented to place and oriented to time; Negative for confused, lethargic or stuporous Motor Exam: strength 5/5 throughout Psych mental status grossly normal Appearance: Negative for unkempt Attitude: No agitated Speech: No other Mood & Affect: Negative for depressed, anxious or tearful Skin no rashes or lesions noted and no wounds General Skin Exam: Negative for jaundice or pallor Rashes: No rashes noted Trauma: Negative for other MDM MDM MDM Narrative Medical decision making narrative: 33-year-old female approximately 10 weeks . With bleeding cramping this morning concern for miscarriage. She just had an ultrasound within the last few days and stated everything looked good. Clinically I do not think this is an ectopic. She is not having any pain. Ultrasound and quant to be obtained. We already know her blood type is A positive. Pelvic exam done nurse present in the room. Small amount of old blood in the vaginal vault. No heavy bleeding. Currently no clots. Os closed. No discharge. On bimanual exam she has no significant adnexal or uterine tenderness. Exam consistent with recent miscarriage. I spoke to her [facility] [employer] on-call Dr. Malika Zelaya. Discussed the patient's diagnosis with her miscarriage. She does not want to get a D&C at this time. She is comfortable going home and following up with her [employer]. Should be given Cytotec p.o. Discharged to home with outpatient follow-up on Sunday to call the office. Though repeat ultrasound exam at her this coming week. Lab Data Attestation: I reviewed the patient's lab results. Lab results narrative: Ultrasound shows an early loss. Potential retained products of conception. CBC shows a white 11.7. H&H 10.9 and 32.3 which is along her baseline blood counts. Platelets 432. Quantitative hCG was 33,408. Prior blood type in the computer was A positive. Labs: Laboratory Results - last 24 hr 03/01/24 09:41 WBC 11.7 H RBC 3.54 L Hgb 10.9 L Hct 32.3 L MCV 91.2 MCH 30.8 MCHC 33.7 RDW Std Deviation 41.7 RDW Coeff of Sam 12.7 Plt Count 432 MPV 10.0 HCG, Quant 14504 H Radiography Diagnostic Testing: Clinical Impression(s) from Imaging Studies Obstetrics Ultrasound 03/01/24 10:10 IMPRESSION: Early loss. Heterogeneous thickening of the endometrium with potential retained products of conception. Electronically Signed: Delvin Jenkins MD at 11:10 EST , Discharge Plan Triage Chief Complaint: Vag Bld, Preg ED Provider: Bird Ferrell Dx/Rx/DC Orders Clinical Impression: Spontaneous miscarriage, 10 weeks gestation of , Vaginal bleeding Instructions: Miscarriage Dc Prescriptions: No Action PNV #[id number] 30 mg iron-10 mg iron-1 mg capsule 1 cap PO DAILY levothyroxine 88 mcg tablet 88 mcg PO QDAY Qty: 90 1RF enoxaparin [Lovenox] 40 mg/0.4 mL syringe 40 mg subcut QDAY 30 Days Qty: 12 12RF ondansetron 4 mg tablet,disintegrating 4 mg PO Q4H PRN (Reason: nausea and vomiting) Qty: 60 2RF Primary Care Provider: Vi Mendes Referrals: Vi Mendes MD [Primary Care Provider] - Tali Pelletier MD [Med Staff - Active Staff] - As soon as possible Activity Restrictions/Additional Instructions: Plenty of fluids and rest. Motrin and Tylenol for pain. Call your [facility] [employer] office on Sunday and see you and get you in to be seen this week. Return if you are having fever, increasing pain or heavy bleeding with clots. Print Language: Azeri Disposition Disposition: Home, Self Care
[2024-03-01 11:22] LABS: hCG Titer Quant., Serum 33408 mIU/mL (1-3)
[2024-03-01 11:40] VITALS: BP 134/78; PULSE 64; RESP 18; O2SAT 98
[2024-03-01 11:51] LABS: Hematocrit 32.3 % (37-47); Hemoglobin 10.9 g/dL (12.0-15.0); Mean Corp Hgb Conc 33.7 g/dL (32-36); Mean Corpuscular Hgb 30.8 pg (27.0-32.0); Mean Corpuscular Volume 91.2 fL (81-99); Platelet Count 432 K/mm3 (150-450); RBC Distribution Width CV 12.7 % (11.6-14.6); RBC Distribution Width SD 41.7 fl (35.1-43.9); Red Blood Count 3.54 M/mm3 (4.2-5.4); White Blood Count 11.7 K/mm3 (4.4-11.0)
[2024-03-01 12:32] VITALS: BP 124/76; PULSE 89; RESP 18; TEMP 37.2; O2SAT 99
[2024-03-01] MEDS: miSOPROStol 200 MCG Tablet 400 MCG PO (12:32)
== END 2024-03-01 12:33 | disposition home or self-care (01) ==
PROVIDERS: Emergency Provider Emergency Medicine; PCP Internal Medicine; Visit Provider Emergency Medicine
DX: O03.9 Complete or unspecified spontaneous abortion without complication (principal); Z3A.10 10 weeks gestation of pregnancy; E66.9 Obesity, unspecified; O99.211 Obesity complicating pregnancy, first trimester
CPT/HCPCS: 76817; 84702; 85027; 99282; A4216

== ENCOUNTER → 2024-03-07 | Outpatient (CLI) | payer BC, SELFPAY ==
--- NOTE | 2024-03-07 14:06 | US_ITS ---
STUDY: ULTRASOUND OF THE FEMALE PELVIS - COMPLETE REASON FOR EXAM: Female, 33 years old. rule out retained products of conception LMP: TECHNIQUE: Transabdominal and Transvaginal TECHNICAL QUALITY: Adequate. COMPARISON: 02/11/2024, 03/01/2024. FINDINGS: The uterus is retroverted and is in a midline position. The uterus measures 9.1 x 6.0 x 5.5 cm. Normal uterine cervix. The endometrium measures 23 mm in thickness, and is heterogeneous and complex with increased vascularity. Fluid is seen in the endocervical canal. No definite endometrial mass. The right ovary is visualized. The right ovary measures 3.8 x 2.7 x 2.4 cm. There is no right ovarian cyst or ovarian mass. There is no visualized right adnexal mass or complex lesion. There is normal arterial and normal venous vascularity. The left ovary is visualized. The left ovary measures 3.8 x 3.3 x 2.5 cm. There is no left ovarian cyst or ovarian mass. There is no visualized left adnexal mass or complex lesion. There is normal arterial and normal venous vascularity. There is no fluid in the cul-de-sac. US/Pelvic w/ Transvaginal IMPRESSION: Findings consistent with retained products of conception. Electronically Signed: Nikolay Knox MD at 16:46 EST ,
== END | disposition home or self-care (01) ==
LOC: US 14:05
PROVIDERS: PCP Internal Medicine; Referring Provider Obstetrics & Gynecology; Visit Provider Obstetrics & Gynecology
DX: O03.9 Complete or unspecified spontaneous abortion without complication (principal)
CPT/HCPCS: 76830; 76856

== ENCOUNTER → 2024-03-11 | Outpatient (CLI) | payer BC, SELFPAY ==
[2024-03-11 16:32] LABS: Hematocrit 31.8 % (37-47); Hemoglobin 10.4 g/dL (12.0-15.0); Mean Corp Hgb Conc 32.7 g/dL (32-36); Mean Corpuscular Hgb 30.1 pg (27.0-32.0); Mean Corpuscular Volume 92.2 fL (81-99); Platelet Count 482 K/mm3 (150-450); RBC Distribution Width CV 13.9 % (11.6-14.6); RBC Distribution Width SD 45.8 fl (35.1-43.9); Red Blood Count 3.45 M/mm3 (4.2-5.4); White Blood Count 14.3 K/mm3 (4.4-11.0)
[2024-03-11 16:54] LABS: T4 Free Direct 0.87 ng/dL (0.76-1.46)
[2024-03-11 17:00] LABS: hCG Titer Quant., Serum 6099 mIU/mL (1-3)
== END | disposition home or self-care (01) ==
LOC: BWCLAB 16:06
PROVIDERS: Internal Medicine Endocrinology, Diabetes & Metabolism; PCP Internal Medicine; Referring Provider Obstetrics & Gynecology; Visit Provider Obstetrics & Gynecology
DX: O03.9 Complete or unspecified spontaneous abortion without complication (principal); E06.3 Autoimmune thyroiditis
CPT/HCPCS: 36415; 84439; 84443; 84702; 85027; 86850; 86900; 86901

== ENCOUNTER 2024-03-12 07:37 | Day surgery (SDC) | payer BC, SELFPAY ==
[2024-03-12] VITALS (7 sets, daily range): BP systolic 92–107; BP diastolic 65–70; PULSE 68–86; RESP 16; TEMP 36.2–36.8; O2SAT 100; BMI 27.0
--- NOTE | 2024-03-12 08:08 | PRE.ANES_ITS ---
ASA Classification* ASA Classification ASA Classification: 1 Assessment & Plan Anesthesia* Anesthesia Assessment Anesthesia Assessment: Discussed sedation and/or anesthesia options, risks, benefits, and alternatives with patient/parents/legal guardian/POA. Questions invited. The patient/parents/legal guardian/POA seems to understand and agrees to proceed with anesthesia plan. Reviewed the physical assessment, medical history, allergy history and patient home medications list prior to surgery/procedure/anesthetic and documented any changes. Performed airway and anesthesia risk assessments. Anesthesia Type Anesthesia Type: General History Source History Obtained from:: Patient and Chart Anesthesia Focused Assessment* Temperature: 98.2 F Pulse Rate: 85 Blood Pressure: 107/66 Respiratory Rate: 16 Pulse Ox: 100 Oxygen Delivery Method: Room Air Airway Assessment Mouth opens: >3 cm Mallampati Score: I Teeth Condition: Intact Neck Range of motion (ROM): Full ROM Focused Labs Anesthesia Preop lab: CBC WBC 14.3 K/mm3 (4.4-11.0) H 03/11/24 16:07 RBC 3.45 M/mm3 (4.2-5.4) L 03/11/24 16:07 Hgb 10.4 g/dL (12.0-15.0) L 03/11/24 16:07 Hct 31.8 % (37-47) L 03/11/24 16:07 Plt Count 482 K/mm3 (150-450) H 03/11/24 16:07 CHEMISTRY Potassium 3.7 mmol/L (3.5-5.1) 01/29/24 15:42 Sodium 136 mmol/L (136-145) 01/29/24 15:42 BUN 15 mg/dL (7-18) 01/29/24 15:42 Creatinine 0.68 mg/dL (0.55-1.02) 01/29/24 15:42 Glucose 89 mg/dL (74-106) 01/29/24 15:42 TSH 5.730 uIU/mL (0.358-3.740) H 03/11/24 16:07 COAG PT 13.8 SECONDS (11.7-14.9) 12/11/22 00:09 HCG, Quant 6099 mIU/mL (1-3) H 03/11/24 16:07 Pre-Assessment Diagnosis/Proposed Procedure Planned Operative Procedure(s): suction d and c Anesthesia History 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 When Was Last Pacemaker Check QUESTION #4 FULL TEXT: You/Your Family Experience fever (hyperthermia) with Anesthesia Last Oral Intake Last Oral intake: Last Oral Intake NPO since 07:00 03/12/24 07:50 Meds taken in AM with sips of No 03/12/24 07:50 water? 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 Female Yes 03/12/24 07:50 HX of Motion Sickness Yes 03/12/24 07:50 HX of N/V After Surgery Yes 03/12/24 07:50 Non-Smoker Yes 03/12/24 07:50 Duration of Surgery greater No 03/12/24 07:50 than 60 minutes Number of Risk Factors 4 03/12/24 07:50 PONV Score Severe Risk 03/12/24 07:50 Height & Weight Height & Weight: Anesthesia: Height & Weight Height 5 ft 2 in 03/12/24 07:50 Weight: 67 kg 03/12/24 07:50 Body Mass Index (BMI) 27.0 03/12/24 07:50 Respiratory Assessment Respiratory Assessment - stonemason apprentice: Respiratory Tract Infection Hx - stonemason apprentice Hx Respiratory Tract Infection No 03/12/24 07:50 STOP Sleep Apnea STOP Sleep Apnea - stonemason apprentice: STOP Sleep Apnea - stonemason apprentice Hx Hypertension No 03/12/24 07:50 Hx Sleep Apnea No 03/12/24 07:50 CPAP BIPAP Do you snore loudly (louder No 03/12/24 07:50 than talking or can be heard Do you often feel tired/ No 03/12/24 07:50 fatigued/ sleepy during daytime? Has anyone observed you stop No 03/12/24 07:50 breathing during sleep? STOP Results Negative 03/12/24 07:50 QUESTION #5 FULL TEXT : Do you snore loudly (louder than talking or can be heard through closed doors)? 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 Specify any problems Hx of Preganancy in last 3 Yes 03/12/24 07:50 Months Nurse Filling Out Transfusion YAMIL 03/12/24 07:50 & Questions: Date: 03/12/24 03/12/24 07:50 Time: 07:53 03/12/24 07:50 Patient unable to answer at this time (ie. confused, unrespo /Reproduction History /Reproductive History - stonemason apprentice: /Reproductive Hx- stonemason apprentice Hx Now No 03/12/24 07:50 Gestational Age (in weeks): EDC: Hx Hx Para Hx Section SAB No 03/12/24 07:50 PFS Medical History Thyroid disorder in mother affecting or puerperium Patricia's thyroiditis IUGR (intrauterine growth restriction) affecting care of mother History of pre-term labor PCOS (polycystic ovarian syndrome) delivery delivered Infertility Thyroid disorder ACL (anterior cruciate ligament) rupture Home Medications ?Medication ?Instructions ?Recorded ?Last Taken ?Type vitamin#30 30 mg iron-10 1 cap PO DAILY 11/21/18 03/11/24 History mg iron-folic acid 1 mg-omg3 capsule levothyroxine 88 mcg tablet 88 mcg PO QDAY #90 tabs 01/29/24 03/11/24 Rx Allergy/AdvReac Type Severity Reaction Status Date / Time No Known Allergies Allergy Verified 03/12/24 07:49 Family History Other No pertinent family history Surgical History S/P ACL repair History of delivery, currently History of delivery H/O laparoscopy Social History adopted: No household members: family number of children: 3 current occupational status: employed 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 current occupational exposures/hazards: No pets and animals: Yes pets and animals: dog(s) history of recent travel: No sexually active: Yes Smoking Status: Never smoker Electronic Cigarette Use: not used alcohol intake: current details: social- not while substance use type: does not use well-balanced diet: daily or most days caffeine: Yes (occasional) Type: carbonated beverages eating out: 1-3 times/week during the past year weight has: remained stable what type of physical activity do you participate in: walking and weight training frequency: 5-6 times per week duration: 15-30 minutes/day giovanny/anabaptism: Sikhism seatbelt use: always do you feel safe at home: Yes additional social history: 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
--- NOTE | 2024-03-12 09:01 | HP.PCM_ITS ---
History and Physical Date of Admission: 03/12/24 Intake Vital Signs 03/04/2510:35 03/11/2514:50 Height 5 ft 2 in 5 ft 2 in Weight: 149 lb 2 oz BMI 27.2 BP 116/79 Pulse 82 Pulse Source Monitor Intake Visit Reasons: US Rescan Chief Complaint: US Rescan Is patient in pain?: No Allergies No Known Allergies Allergy (Verified 03/11/24 15:59) Medications ?Medication ?Instructions ?Recorded ?Confirmed ?Type vitamin#30 30 mg iron-10 1 cap PO DAILY 11/21/18 03/11/24 History mg iron-folic acid 1 mg-omg3 capsule levothyroxine 88 mcg tablet 88 mcg PO QDAY #90 tabs 01/29/24 03/11/24 Rx [facility] Medical History Thyroid disorder in mother affecting or puerperium Patricia's thyroiditis IUGR (intrauterine growth restriction) affecting care of mother History of pre-term labor PCOS (polycystic ovarian syndrome) delivery delivered Infertility Thyroid disorder ACL (anterior cruciate ligament) rupture Surgical History S/P ACL repair History of delivery, currently History of delivery H/O laparoscopy Family History Other No pertinent family history Social History adopted: No household members: family number of children: 3 current occupational status: employed 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 current occupational exposures/hazards: No pets and animals: Yes pets and animals: dog(s) history of recent travel: No sexually active: Yes Smoking Status: Never smoker Electronic Cigarette Use: not used alcohol intake: current details: social- not while substance use type: does not use well-balanced diet: daily or most days caffeine: Yes (occasional) Type: carbonated beverages eating out: 1-3 times/week during the past year weight has: remained stable what type of physical activity do you participate in: walking and weight training frequency: 5-6 times per week duration: 15-30 minutes/day giovanny/roman catholic: Religious seatbelt use: always do you feel safe at home: Yes additional social history: [place]- [employer]ing [employer] at [employer] Patient works at [employer] US Rescan Details: SALLY HALE is a 33 year old who presents for follow up miscarriage. She presented to the ER a week ago from Sunday with heavy bleeding and had an ultrasound that showed some suspicion for retained products. She was given a dose of Cytotec and followed up in the office and had a repeat ultrasound on Sunday that also shows retained products of conception with a lining of 23 mm. Repeat ultrasound today shows 22 mm lining and persistent retained products with vascular flow. Patient is having light bleeding and no fevers no foul-smelling discharge. History 4 Elective abortions Hx Para 2 Spontaneous abortions 2 Hx # Term Pregnancies Ectopic pregnancies Hx # Pregnancies Multiple births 1 # of living children 2 Past Pregnancies Del. Date Name GA/Weeks Outcome Route Bth Weight Gen Labor Lgth Anesthesia Del Locatn Provider FOB 09/07/20 Moses/Deric 36 live - C-se ction Male spinal [facility] Dr. Pelletier 12/11/22 Soniya 31 live - 3lbs 6 oz Male spinal [facility] JV Delivery Date: 12/11/22 Last Updated by: Kelly Beltran IUGR 31 wk ROS Const Constitutional: Reports as per HPI; Denies fever(s) ENT ENT: Reports system reviewed and no additional complaints, except as documented Cardio Card: Reports system reviewed and no additional complaints, except as documented Resp Resp: Reports system reviewed and no additional complaints, except as documented GI GI: Reports as per HPI : Reports as per HPI Musc Musc: Reports system reviewed and no additional complaints, except as documented Skin Skin/Breast: Reports system reviewed and no additional complaints, except as documented Neuro Neuro: Reports system reviewed and no additional complaints, except as documented Endo Endo: Reports system reviewed and no additional complaints, except as documented Exam Const General: healthy appearing, comfortable and no acute distress HENMT Head: normal to inspection and normocephalic Neck Neck: no lymphadenopathy noted Thyroid: thyroid normal Chest Chest palpation & inspection: normal inspection of the chest Resp Effort & Inspection: normal respiratory effort GI Inspection: normal to inspection Palpation: soft and nontender External Female Exam: normal external appearance Speculum Exam - Vagina: normal appearance of the vagina and vaginal bleeding Bimanual Exam- Vagina & Uterus: uterine shape normal and non-tender OB/External & Speculum: vaginal bleeding Speculum Exam: vaginal bleeding Skin General: no rashes or lesions noted Neuro General: no focal motor deficits Extrem General: normal to inspection and no pedal edema Psych Appearance: grossly normal Coding Level of Care Code Off vis,est,level 4 Diagnoses Incomplete miscarriage O03.4 Assessment and Plan Assessment and Plan (1) Incomplete miscarriage: Status: Acute Comment: persistent despite cytotec, recommend d and c Plan reveiwed bleeding and infeciton precautions, patient requesting tomorrow would be better because is out of town and childcare is difficult, patient appears stable, reasonable to wait. After discussing the patient's diagnosis and treatment plan options, patient wishes to proceed with surgical management. I have discussed with the patient the risks, benefits, and alternatives of the procedure which include but are not limited to risks of anesthesia, bleeding, infection, possible damage to bowel, bladder, or surrounding vasculature which could lead to additional surgery to evaluate any complications. Patient agrees to procedure and wishes to proceed. ACOG/uptodate references given for additional information regarding procedure.
--- NOTE | 2024-03-12 09:30 | POC_PTH ---
PATIENT: SALLY HALE LOC: [facility] [place] U#:[id number] AGE/SX: 33/F ROOM: RE03/12/[address]: Dr. Malika Crooks DO : 1990 BED: DIS: 03/12/2024 SPEC #: [id number] RECD: 03/12/24 11:24 STATUS: TJ YUNG #: [id number] SANDRA: 03/12/24 09:[address]: Malika Crooks DEPT: SURGICAL PATHOLOGY RECD BY: Jeni Guillory ENTERED: 03/12/24 12:08 SP TYPE: PROD CONC OTHR DR: Dr. Vi Mendes MD Tissues: Product of conception, NOS Procedures: Surgery Specimen Level IV HEADER OPERATION: D&C, suction PRE-OP DIAGNOSIS: Incomplete miscarriage TISSUE SUBMITTED: Products of conception MICROSCOPIC DIAGNOSIS Products of conception, dilation and curettage: [place]id[place], gestational endometrium and immature chorionic villi (products of conception), clinically incomplete miscarriage. ZAID: 03/13/2024 MICROSCOPIC DESCRIPTION Slides are reviewed. GROSS DESCRIPTION Received in fixative is one container labeled with the patient's name and designated Products of conception. The specimen consists of multiple fragments of pink hemorrhagic soft tissue that in aggregate measure 8 x 7 x 2.5 cm. tissue is not identified. Enterprise Account Executive tissue is submitted in three cassettes. 03/12/2024 TC:5 CPT:91410
--- NOTE | 2024-03-12 10:16 | DCINST_ITS ---
Discharge Instructions Diet Discharge Diet: No restrictions DC O2, CPAP, BIPAP needs Home O2 Discharge instructions: No Dressing / Incision Discharge Activity: Return to Normal Activity, May Shower and May Take a Tub Bath (after 1 week) May resume sexual activity in: 1-2 weeks Weight Bearing Status: Weight bearing as tolerated Lifting Restrictions: none Dressing / Incision Call your doctor if you observe: Fever of 101 or Higher, Using more than 1 pad per hour, Shortness of breath and Uncontrolled pain Follow Up Care Please Follow Up With: Malika Crooks DO When: Call [phone] to schedule appointment. Test Results: Test results from this visit will be discussed in further detail at your follow- up appointment, if applicable. Discharge Plan Admission Primary Reason for Your Visit: dilation and curettage Attending Provider: Malika Crooks Primary Care Provider: Vi Mendes Instructions Print Language: Mongolian Discharge Orders/Prescriptions Prescriptions: New ibuprofen 800 mg tablet 800 mg PO Q8H PRN (Reason: pain) Qty: 20 0RF oxycodone-acetaminophen [Percocet] 5-325 mg tablet 1 tab PO Q4H PRN (Reason: pain) 7 Days Qty: 8 0RF Rx Instructions: 1-2 tabs q 4 hrs as needed for pain Continued PNV #[id number] acid-omega3 30 mg iron-10 mg iron-1 mg capsule 1 cap PO DAILY levothyroxine 88 mcg tablet 88 mcg PO QDAY Qty: 90 1RF Referrals / Follow Up: Vi Mendes MD [Primary Care Provider] - Disposition Disposition (needs filled in before D/C Order can be placed): Home, Self Care
[2024-03-12] MEDS: Methylergonovine 0.2 MG/ML Ampul IM (10:30)
--- NOTE | 2024-03-12 10:48 | PCM.POST.ANE ---
Anesthesia: Postop Eval I Current Vital Signs Temperature: 97.2 F Pulse Rate: 86 Blood Pressure: 95/70 Respiratory Rate: 16 Pulse Ox: 100 Oxygen Delivery Method: Room Air Assessment Airway patent: Yes Spontaneous unlabored respirations: Yes Mental status: Awake and Calm nausea: No Vomiting: No Anesthesia Complication: No Fluid Hydration Crystalloid volume administer (ml): 10 Total IV fluid infused: 10 Progress Note Anesthesia document: Postop Eval 1 completed: Yes
--- NOTE | 2024-03-12 12:07 | OP.PCM_ITS ---
Problems Associated Problem List Diagnoses (1) Incomplete miscarriage: Multi Select Codes Urinary/Genital Urinary/Genital CPT Codes: 11445 Surg Trtmt missed Ab 1TM Operative Report (Standard) Operative Information Date of Procedure: 03/12/24 Pre-Operative Diagnosis: retained products of conception following a 10 week incomplete abolition Post-Operative Diagnosis: retained products of conception following a 10 week incomplete abolition Surgery/Procedure Performed: suction dilation and curettage setter cold rolling machine: No Type of Anesthesia: MAC RN Documented Start/Stop Times: Operation Date: 03/12/24 09:30 Case Time Into Pre-Op 03/12/24 07:43 Anesthesia Start 03/12/24 10:04 Into Room 03/12/24 10:04 Out of Pre-Op 03/12/24 10:04 Procedure Start 03/12/24 10:38 Procedure End 03/12/24 10:40 Anesthesia End 03/12/24 10:44 Out of Room 03/12/24 10:44 Into Recovery 03/12/24 10:47 Into Phase II Recovery 03/12/24 11:03 Out of Recovery 03/12/24 11:03 Out of Phase II 03/12/24 11:32 Procedure Start Time: 10:18 Procedure Stop Time: 10:40 Select all DRAINS/GRAFTS/IMPLANTS that apply: None Special Medications: methergine IM Estimated Blood Loss: 50cc Specimen collected: Yes Description of specimen(s) removed: products of conception Description of surgery: Patient was taken to the operating room and placed under MAC local anesthesia. She was prepped and draped in the normal sterile fashion the dorsal lithotomy position. Bladder was drained of clear urine and anterior lip of the cervix was grasped and the uterus sounded to 8 cm. Cervix was progressively dilated to allow passage of a 7 suction curette. Progressive passes were made removing the retained products of conception without complication. Sharp curettage confirmed complete removal of the retained products. All instruments were removed from the vagina and excellent hemostasis was noted and the patient was taken to recovery in stable condition. Surgical Findings: moderate products of conception. normal cervix and vagina Complications Complications: No Admit VTE Documentation VTE Present on Admission: No VTE Mechan Device Prophylaxis: SCD's VTE Pharm Prophylaxis ordered?: No
--- NOTE | 2024-03-12 13:31 | POSTOPAN2_ITS ---
Anesthesia Postop Eval I Sum Postop Eval Completion status Anesthesia document: Postop Eval 1 completed: Yes Anesthesia Postop Eval I Summary Anesthesia Postop Eval I Summary: Anesthesia Postop Eval I: Assessment Summary Airway patent Yes 03/12/24 10:49 PRINT TRAFFIC MANAGER.ANTONOBWilmar Spontaneous unlabored Yes 03/12/24 10:49 PRINT TRAFFIC MANAGER.CECI respirations Mental status Awake,Calm 03/12/24 10:49 PRINT TRAFFIC MANAGER.ANTONOBWilmar nausea No 03/12/24 10:49 PRINT TRAFFIC MANAGER.CECI Vomiting No 03/12/24 10:49 PRINT TRAFFIC MANAGER.CECI Anesthesia Postop Eval I: Fluid Summary Crystalloid volume administer 10 03/12/24 10:49 PRINT TRAFFIC MANAGER.ANTONOBY (ml) Colloids volume administered ( ml) Blood Product volume administered (ml) Total IV fluid infused 10 03/12/24 10:49 PRINT TRAFFIC MANAGER.CECI Anesthesia Postop Eval I: Summary Notes Anesthesia Complication No 03/12/24 10:49 PRINT TRAFFIC MANAGER.CECI Anesthesia Complication Comment: Post-operative progress note Anesthesia: Postop Eval II Evaluation Mental status: Awake Pain Level: 0 nausea: No Vomiting: No Complications Anesthesia Complication: No
--- NOTE | 2024-03-12 13:31 | PCM.POSTANE2 ---
Anesthesia Postop Eval I Sum Postop Eval Completion status Anesthesia document: Postop Eval 1 completed: Yes Anesthesia Postop Eval I Summary Anesthesia Postop Eval I Summary: Anesthesia Postop Eval I: Assessment Summary Airway patent Yes 03/12/24 10:49 BUTTON STATION WORKER.ANTONOBWilmar Spontaneous unlabored Yes 03/12/24 10:49 BUTTON STATION WORKER.CECI respirations Mental status Awake,Calm 03/12/24 10:49 BUTTON STATION WORKER.ANTONOBWilmar nausea No 03/12/24 10:49 BUTTON STATION WORKER.CECI Vomiting No 03/12/24 10:49 BUTTON STATION WORKER.CECI Anesthesia Postop Eval I: Fluid Summary Crystalloid volume administer 10 03/12/24 10:49 BUTTON STATION WORKER.ANTONOBY (ml) Colloids volume administered ( ml) Blood Product volume administered (ml) Total IV fluid infused 10 03/12/24 10:49 BUTTON STATION WORKER.CECI Anesthesia Postop Eval I: Summary Notes Anesthesia Complication No 03/12/24 10:49 BUTTON STATION WORKER.CECI Anesthesia Complication Comment: Post-operative progress note Anesthesia: Postop Eval II Evaluation Mental status: Awake Pain Level: 0 nausea: No Vomiting: No Complications Anesthesia Complication: No
== END 2024-03-12 11:33 | disposition home or self-care (01) ==
LOC: SDC 07:40 → AC 07:40
PROVIDERS: PCP Internal Medicine; Referring Provider Obstetrics & Gynecology; Visit Provider Obstetrics & Gynecology
PROC: (CPT 59812; principal; 2024-03-12 09:15)
DX: O03.4 Incomplete spontaneous abortion without complication (principal); Z79.890 Hormone replacement therapy; E06.3 Autoimmune thyroiditis
CPT/HCPCS: 59812; 01965; 88305; A4216; J2405